=== PATIENT | female | born 1980 | race Caucasian/White ===

== ENCOUNTER 2023-06-14 08:45 | Outpatient (CLI) | payer MEDICARE, OTHER, SELFPAY ==
--- NOTE | 2023-06-14 09:15 | FL_ITS ---
Patient: DANUTA FRAGA Facility:?[facility] Patient ID:?[id number] Site Patient ID:?[id number]. Site :?1980 Study:?XRay-Abdomen upper GI/AIR to Read-06/14/2023 10:24:31 AM Ordering Physician:ISMAEL Final Report: Technique: Single contrast upper GI examination performed with thin barium. Fluoroscopy time 1 minute 57 seconds.. Indication: Dysphagia Comparison: 04/12/2012 Findings: Swallowing mechanism: Coughing occurred during swallowing. No discrete aspiration on the current study. Pill was tolerated normally. Esophageal motility: Decreased esophageal motility with delayed clearance. Gastroesophageal reflux: Present. Hernia: None. Esophagus, stomach and duodenal bulb mucosa: Normal mucosa. No stricture or mass. Impression: Delayed esophageal motility. Normal passage of barium tablet into the stomach. GERD present. Possible aspiration. Consider speech therapy evaluation. Dictated by Sam Villalobos MD @ 06/14/2023 12:52:53 PM Signed by:?Sam Villalobos MD @06/14/2023 12:52:53 PM (Electronic Signature)
== END 2023-06-14 08:46 | disposition home or self-care (01) ==
LOC: RAD 08:52
PROVIDERS: PCP Family Medicine; Visit Provider Internal Medicine Gastroenterology
DX: R13.10 Dysphagia, unspecified (principal); K21.9 Gastro-esophageal reflux disease without esophagitis
CPT/HCPCS: 74246

== ENCOUNTER 2024-08-09 14:23 | Inpatient (IN) | payer MEDICARE, OTHER, SELFPAY ==
[2024-08-09] VITALS (29 sets, daily range): BP systolic 97–119; BP diastolic 61–73; PULSE 83–96; RESP 18–30; TEMP 36.8–37.1; O2SAT 80–98
--- NOTE | 2024-08-09 14:54 | CRLHL7_ITS ---
For Patients: As a result of the Cures Act, medical imaging exams and procedure reports are released immediately into your electronic medical record. You may view this report before your referring provider. If you have questions, please contact your health care provider. INDICATION: Shortness of breath TECHNIQUE: Chest radiograph 1 view COMPARISON: None FINDINGS: The sensitivity and specificity of the exam are moderately limited by the patient`s body habitus. Mediastinum: Patient is status post median sternotomy with a clip over the AP window which may be due to prior patent ductus arteriosus ligation. The heart silhouette is normal in size and morphology. Lung: Small lung volumes are present with diffuse ground-glass opacities and indistinctness of the pulmonary vessels which may be due to pulmonary edema. No sign of pleural effusion seen. No pneumothorax is identified. Bone and Soft tissue: Unremarkable for age. IMPRESSION: 1. Small lung volumes are present with diffuse ground-glass opacities and indistinctness of the pulmonary vessels which may be due to pulmonary edema. Dictated by Kevan Lay MD @ 08/09/2024 3:21:19 PM Dictated by: Kevan Lay MD @ 08/09/2024 15:21:27 (Electronically Signed)
--- OUTSIDE RECORDS SUMMARY | 2024-08-09 15:26 | XMS_ITS | CCD ---
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
[2024-08-09 15:44] LABS: HCO3 VBG 24 mmol/L (21-28); Lactate Sepsis w/Reflex* 1.1 mmol/L (0.5-1.9); PCO2 VBG 37 mmHG (40-50); PO2 VBG 71.1 mmHG (25-47); pH VBG 7.414 (7.32-7.43)
[2024-08-09 15:48] LABS: Basophils Absolute Auto 0.04 K/uL (0.00-0.30); Basophils Percent Auto 0.4 % (0.0-3.0); Eosinophils Absolute Auto 0.03 K/uL (0.00-0.50); Eosinophils Percent Auto 0.3 % (0.0-7.0); Hemoglobin* 11.4 gm/dL (12.0-16.0); Immature Granulocytes Abs Auto 0.07 K/uL (0.00-0.30); Immature Granulocytes Pct Auto 0.7 %; Lymphocytes Percent Auto 16.7 % (20-44); Mean Corpuscular HGB Conc 33 gm/dL (32-36); Mean Corpuscular Hemoglobin 31 pg (26-34); Mean Corpuscular Volume 96 fL (80-100); Monocytes Percent Auto 5.8 % (0.0-11.0); Neutrophils Percent Auto 76.1 % (42.0-72.0); Platelet Count* 260 K/uL (140-440); RDW Coefficient of Variation % 15.3 % (11.5-15.5); Red Blood Count 3.65 m/uL (4.00-5.20); White Blood Count* 10.16 K/uL (4.50-11.00)
[2024-08-09 15:52] LABS: Slide Review Reflex No
[2024-08-09 15:58] LABS: Chloride* 106 mmol/L (96-114)
[2024-08-09 15:59] LABS: Potassium* 3.6 mmol/L (3.6-5.1); Sodium* 139 mmol/L (135-149)
[2024-08-09 16:01] LABS: Blood Urea Nitrogen* 22 mg/dL (5-24); Creatinine* 0.8 mg/dL (0.5-1.5); Estimated Glomerular Filt Rate 94 ml/min
[2024-08-09 16:02] LABS: Anion Gap 10 mEq/L (7-15); Calcium* 8.4 mg/dL (8.4-10.6); Carbon Dioxide* 23 mmol/L (20-32); Glucose* 130 mg/dL (60-115)
[2024-08-09 16:10] LABS: Troponin, Point-of-Care* 0.04 ng/ml (0.01-0.04)
[2024-08-09 16:12] LABS: NT Pro B Type NatriureticPept* 5990 pg/mL (See Note)
[2024-08-09 16:19] LABS: Procalcitonin* 0.33 ng/mL (<0.50)
[2024-08-09 16:22] LABS: C Reactive Protein* 21.5 mg/dL (0.5-1.0)
[2024-08-09] MEDS: FUROSEMIDE 10 MG/ML inj 40 MG IVP (16:42)
--- NOTE | 2024-08-09 16:58 | ED.GENADULT ---
HPI - General Adult General Date Seen: 08/09/24 Chief complaint: Shortness of Breath/Dyspnea Stated complaint: Oxygen levels are down Time Seen by Provider: 08/09/24 14:36 History of Present Illness HPI narrative: Patient is a 43-year-old here with mom for evaluation of cough, shortness of breath, hypoxia. She has a history of Down syndrome, mom provides the history. She was born with congenital heart disease, complete AV canal, and this was repaired as an . Mom reports that she has been followed by Cardiology since then, has had regular echocardiograms, has had 2 in the past month, most recently a few days ago. Apparently mom was told there were some problems with the valves and she has some additional follow-up scheduled coming up soon. She has not historically had problems with heart failure. Over the past week she has had what they felt was probably asthma with cough, wheezing and some shortness of breath. She had a temp of a 100.2? yesterday. She has been coughing up a little bit of sputum. She has complained of some abdominal bloating and ?fullness, and actually mom had brought her to her regular doctor today for those symptoms, she was noted to be hypoxic with O2 sats of 80 and so she was sent here right away without any evaluation there. She is not normally on oxygen. O2 sats here on oxygen are 93%. She has not had swelling in her legs, has not had vomiting, diarrhea, rashes, and has not complained about other pain. She is conversant, though limited in her ability to provide information. She lives in a fpc during the week, mom says sometimes she stays in a fpc on the weekends and sometime she comes home and stays with mom. Related Data Home Medications ?Medication ?Instructions ?Recorded ?Confirmed ascorbic acid (vitamin C) 250 mg 250 mg PO DAILY 12/15/21 08/09/24 tablet cholecalciferol (vitamin D3) 25 1,000 unit PO DAILY 12/15/21 08/09/24 mcg (1,000 unit) tablet melatonin 5 mg capsule 1 mg PO .Bedtime as needed PRN 12/15/21 08/09/24 multivitamin with iron 1 tab PO QDAY 12/15/21 08/09/24 albuterol sulfate 2.5 mg/3 mL 1 continuous nebulization TID PRN 08/09/24 (0.083 %) solution for nebulization amoxicillin 500 mg capsule 2,000 mg PO ONCE 08/09/24 08/09/24 budesonide 0.5 mg/2 mL suspension 0.25 mg inhalation BID PRN 08/09/24 08/09/24 for nebulization (Pulmicort) buspirone 15 mg tablet 15 mg PO BID 08/09/24 08/09/24 cetirizine 10 mg tablet (Allergy 10 mg PO DAILY 08/09/24 08/09/24 Relief (cetirizine)) diphenhydramine HCl 25 mg capsule 25 - 50 mg PO QHS PRN 08/09/24 08/09/24 (Benadryl) duloxetine 30 mg capsule,delayed 30 mg PO DAILY 08/09/24 08/09/24 release duloxetine 60 mg capsule,delayed 60 mg PO DAILY 08/09/24 08/09/24 release famotidine 20 mg tablet 20 mg PO BID 08/09/24 08/09/24 fluticasone propionate 50 2 spray intranasal DAILY 08/09/24 08/09/24 mcg/actuation nasal spray,suspension (24 Hour Allergy Relief) lorazepam 0.5 mg tablet 0.5 mg PO PRN 08/09/24 mirtazapine 7.5 mg tablet 7.5 mg PO QPM 08/09/24 08/09/24 pseudoephedrine HCl 30 mg tablet 30 mg PO Q6H PRN 08/09/24 08/09/24 (Sudafed) zinc gluconate 50 mg tablet 50 mg PO DAILY 08/09/24 08/09/24 Allergies Allergy/AdvReac Type Severity Reaction Status Date / Time metoclopramide (From Reglan) Allergy Unknown Verified 08/09/24 14:39 seasonal Allergy Mild Uncoded 12/15/21 10:25 Dust Allergy Unknown Uncoded 12/15/21 10:25 Review of Systems Status of ROS: Reports: unobtainable due to medical condition [facility] Social History Smoking Status: Never smoker Exam Narrative: Exam Narrative: Vital signs reviewed In general, alert, nontoxic mid age woman. Head: Face ease consistent with Down syndrome. Atraumatic. Eyes: Sclera clear. Pupils equal and reactive. ENT: Mucous membranes moist. Neck: Supple without adenopathy. Heart: Regular rate and rhythm. Lungs: She sounds clear on the right, on the left she has crackles throughout. No significant increased work of breathing. Abdomen: Soft, nontender to palpation. Nondistended at this time. Extremities: Well perfused, pulses intact. No significant edema. No calf tenderness. Neurologic: She is alert, moves all extremities. Skin: Warm, dry well perfused. Affect: Pleasant, cooperative. Const: Vital Signs, click to edit/add: Vital Signs - 24 hr 08/09/24 14:32 08/09/24 14:33 08/09/24 14:33 Temperature 98.2 F Pulse Rate 94 93 Pulse Rate [Pulse Oximeter] 95 Respiratory Rate 28 H 24 Blood Pressure 116/69 Blood Pressure [Ri ght Upper Arm] 116/69 Pulse Oximetry 91 80 L 92 Oxygen Delivery Me thod Room Air Oxygen Flow Rate 08/09/24 14:45 08/09/24 14:54 08/09/24 15:00 Temperature Pulse Rate 93 90 Pulse Rate [Pulse Oximeter] Respiratory Rate 28 H 22 Blood Pressure Blood Pressure [Ri ght Upper Arm] Pulse Oximetry 96 93 98 Oxygen Delivery Me thod OxyMask Oxygen Flow Rate 8 08/09/24 15:01 08/09/24 15:15 08/09/24 15:31 Temperature Pulse Rate 87 84 Pulse Rate [Pulse Oximeter] Respiratory Rate 24 26 H Blood Pressure 100/61 97/64 Blood Pressure [Ri ght Upper Arm] Pulse Oximetry 97 95 Oxygen Delivery Me thod Oxygen Flow Rate 08/09/24 15:45 08/09/24 16:00 08/09/24 16:01 Temperature Pulse Rate 87 89 85 Pulse Rate [Pulse Oximeter] Respiratory Rate 24 22 Blood Pressure 98/69 Blood Pressure [Ri ght Upper Arm] Pulse Oximetry 93 94 95 Oxygen Delivery Me thod Oxygen Flow Rate 08/09/24 16:02 08/09/24 16:15 08/09/24 16:30 Temperature Pulse Rate 86 83 87 Pulse Rate [Pulse Oximeter] Respiratory Rate 24 28 H Blood Pressure Blood Pressure [Ri ght Upper Arm] Pulse Oximetry 95 95 96 Oxygen Delivery Me thod Oxygen Flow Rate 08/09/24 16:31 08/09/24 16:45 08/09/24 16:52 Temperature Pulse Rate 83 89 Pulse Rate [Pulse Oximeter] Respiratory Rate 23 18 Blood Pressure 110/66 Blood Pressure [Ri ght Upper Arm] Pulse Oximetry 95 95 95 Oxygen Delivery Me thod OxyMask Oxygen Flow Rate 6 Course Course ED Course: Patient was maintained on oxygen here. Based on my initial exam with crackles unilaterally and history of cough over the past week, I did suspect this may be related to pneumonia, other diagnostic considerations would include congestive heart failure, pulmonary edema, effusion, pulmonary embolism, acute coronary syndrome, anemia, among others. A chest x-ray is of somewhat poor quality, but looks more consistent with pulmonary edema to me than focal consolidation. An EKG shows a sinus rhythm, ventricular rate of 84, she has an incomplete right bundle branch block, QT is prolonged at 489 milliseconds, no acute ST segment changes, T-wave inversion in the anterior leads related presumably to the incomplete right bundle branch block. Troponin was 0.04. Labs are overall not entirely supportive of a diagnosis of pneumonia. Her white blood cell count is normal, lactate was 1.1, BNP elevated at nearly 6000, baseline unknown. She does have an elevated CRP at 21.5 of uncertain significance. Procalcitonin was normal at 0.33. I discussed her care with the laborer cook house on-call at [facility] given her history of congenital heart disease. Her echo from 3 days ago reportedly showed mild mitral regurgitation and severe tricuspid regurgitation. Three weeks ago apparently the mitral regurgitation was more severe and the laborer cook house said that this can wax and wane, presumably mitral regurgitation would be giving her her pulmonary edema at this point. She does have follow-up planned for August 19 to get a JIE. The laborer cook house felt that for now a hospitalization here with diuresis and oxygen therapy is really all she needs, he did not feel that there is anything cardiology specific that she would require right now unless she does not respond to diuresis. They are available for any further consultation or transfer if needed. Case discussed with hospitalist here, plan will be admission to our hospital here. I did give her Lasix 40 mg IV. Vital Signs Vital signs: Initial Vital Signs Pulse Rate 94 08/09/24 14:32 Blood Pressure 116/69 08/09/24 14:32 Blood Pressure Mean 84 08/09/24 14:32 Pulse Oximetry 91 08/09/24 14:32 Vital Signs Pulse Rate 94 08/09/24 14:32 Blood Pressure 116/69 08/09/24 14:32 Pulse Oximetry 91 08/09/24 14:32 Temperature 98.2 F 08/09/24 14:33 Pulse Rate 89 08/09/24 16:45 Respiratory Rate 18 08/09/24 16:45 Blood Pressure 110/66 08/09/24 16:31 Pulse Oximetry 95 08/09/24 16:52 Oxygen Delivery Method OxyMask 08/09/24 16:52 Oxygen Flow Rate 6 08/09/24 16:52 Medications Administered Medications: Discontinued Medications Generic Name Dose Route Start Last Admin Trade Name Sandipq PRN Reason Stop Dose Admin Furosemide 40 mg 08/09/24 16:22 08/09/24 16:42 Furosemide 10 Mg/Ml Inj IVP 08/09/24 16:23 40 mg ONCE ONE Administration Medical Decision Making Lab Data Lab results reviewed: Yes I reviewed the patient's lab results Labs: Lab Results 08/09/24 08/09/24 Range/Units 14:54 15:30 WBC 10.16 (4.50-11.00) K/uL RBC 3.65 L (4.00-5.20) m/uL Hgb 11.4 L (12.0-16.0) gm/dL Hct 35.0 (33.0-51.0) % MCV 96 (80-100) fL MCH 31 (26-34) pg MCHC 33 (32-36) gm/dL RDW Coeff of Elsy 15.3 (11.5-15.5) % Plt Count 260 (140-440) K/uL Neut % (Auto) 76.1 H (42.0-72.0) % Lymph % (Auto) 16.7 L (20-44) % Barnes % (Auto) 5.8 (0.0-11.0) % Eos % (Auto) 0.3 (0.0-7.0) % Baso % (Auto) 0.4 (0.0-3.0) % Neut # (Auto) 7.70 H (1.7-7.0) K/uL Lymph # (Auto) 1.70 (0.90-2.90) K/uL Barnes # (Auto) 0.60 (0.00-0.90) K/UL Eos # (Auto) 0.03 (0.00-0.50) K/uL Baso # (Auto) 0.04 (0.00-0.30) K/uL Abs Immat Gran (auto) 0.07 (0.00-0.30) K/uL Imm/Tot Granulo (auto) 0.7 % VBG pH 7.414 (7.32-7.43) VBG pCO2 37 L (40-50) mmHG VBG pO2 71.1 H (25-47) mmHG VBG HCO3 24 (21-28) mmol/L Sodium 139 (135-149) mmol/L Potassium 3.6 (3.6-5.1) mmol/L Chloride 106 (96-114) mmol/L Carbon Dioxide 23 (20-32) mmol/L Anion Gap 10 (7-15) mEq/L BUN 22 (5-24) mg/dL Creatinine 0.8 (0.5-1.5) mg/dL Estimated GFR 94 ml/min Glucose 130 H (60-115) mg/dL Lactate 1.1 (0.5-1.9) mmol/L Calcium 8.4 (8.4-10.6) mg/dL C-Reactive Protein 21.5 H (0.5-1.0) mg/dL NT-Pro-B Natriuret Pep 5990 H (See Note) pg/mL Procalcitonin 0.33 (<0.50) ng/mL POC Troponin I 0.04 (0.01-0.04) ng/ml Imaging Data Chest x-ray: Attestation: I have reviewed the pertinent imaging results. Radiologist's impression: Patient: Dominique Pratt MR#: [id number] : 1980 Acct:[id number] Loc: ED Service Date: 08/09/[address]: Ordering Physician: Flori Camp M.D. Date of Service: 08/09/24 Procedure(s): XR chest 1V portable Accession Number(s): [id number] cc: Flori Camp M.D.; Joe Dailey M.D.~ For Patients: As a result of the Cures Act, medical imaging exams and procedure reports are released immediately into your electronic medical record. You may view this report before your referring provider. If you have questions, please contact your health care provider. INDICATION: Shortness of breath TECHNIQUE: Chest radiograph 1 view COMPARISON: None FINDINGS: The sensitivity and specificity of the exam are moderately limited by the patient`s body habitus. Mediastinum: Patient is status post median sternotomy with a clip over the AP window which may be due to prior patent ductus arteriosus ligation. The heart silhouette is normal in size and morphology. Lung: Small lung volumes are present with diffuse ground-glass opacities and indistinctness of the pulmonary vessels which may be due to pulmonary edema. No sign of pleural effusion seen. No pneumothorax is identified. Bone and Soft tissue: Unremarkable for age. IMPRESSION: 1. Small lung volumes are present with diffuse ground-glass opacities and indistinctness of the pulmonary vessels which may be due to pulmonary edema. Discharge Plan Discharge Clinical Impression: Heart failure, History of congenital heart disease, Hypoxia Patient Disposition: Admitted As Observation Condition: Stable
[2024-08-09 18:12] LABS: Magnesium* 2.5 mg/dL (1.5-2.6)
--- NOTE | 2024-08-09 18:22 | PM.IMHP1 ---
Assessment and Plan Assessment and plan (1) Acute right-sided heart failure: Problem comment: - reviewed with extension service specialist at [facility] who recommends inpatient treatment with IV loop diuretic plus other supportive efforts, and consider transfer if not responding sufficiently Status: Acute (2) Severe tricuspid regurgitation by prior echocardiography: Problem comment: - Long standing TR monitored with cardiology and TTE annually - previously mild to moderate severity - TTE 08/06/2024: mild to moderately enlarged RV with torrential tricuspid valve regurgitation - scheduled to for a JIE and cardiology valvular heart disease specialist, at [facility] @ 1045 AM 08/19/2024 Status: Acute (3) Moderate mitral valve regurgitation: Problem comment: - Long standing MR monitored by cardiology and TTE annually - regurgitation severity variable between mild and moderate - scheduled to for a JIE and cardiology valvular heart disease specialist, at [facility] @ 1045 AM 08/19/2024 Status: Acute (4) Acute respiratory failure with hypoxia: Problem comment: - appears to be due to underlying valvular heart disease - treat underlying right heart failure likely due to torrential tricuspid regurgitation with furosemide, 40 mg IV and monitor - oxygen supplementation - if condition worsens or does not improve, will need to re-consult Cardiology Service at [facility] Status: Acute Plan 1. Reviewed impression, plans, recommendations with patient's mother, father, and our emergency department physician 2. Answered patient's parents questions to their satisfaction 3. Patient's parents agree with above stated plans and recommendations Total Time Spent Total Time Spent: 75 minutes Hospitalist- H&P: HPI History of Present Illness Date Seen: 08/09/24 Chief complaint: Oxygen levels are down Narrative: Dominique Pratt is a 43 year old woman with Down syndrome and longstanding congenital heart disease presents with her mother and father for assessment of new hypoxia. Her mother and father are her legal guardians. Patient has had evolving memory disturbance and mother and father continue to be her guardians and spokes people. Up until 1 week ago she had been in her usual state of health. Starting a week ago she started having increased coughing. Mother, father, and staff at the [facility] where [facility] resides thought perhaps the patient might be having an asthma exacerbation. Patient has had history of reactive airways disease in association with upper respiratory tract infections. Presently they have not been aware of stridor or wheezing. Nevertheless they have been treating her with albuterol nebulization but have not noticed much of an improvement and thus they made an appointment to be seen in the clinic today. At the clinic her room air oxygen saturations at rest were in the low to mid 80s. At this juncture she was referred to the emergency department for further assessment and treatment. To the best of patient's family knowledge the patient has not had fevers, rigors, diaphoresis. When being assessed at the clinic today, before she was brought to the emergency department, they did measure a temperature of 100.2? F at the clinic. She had not had any fevers prior to that. Since she has been in our hospital she has not had any fevers. With the family did notice is ever the last several days patient has had increasing dyspnea with exertion, walking more slowly, breathing more heavily with exertion. Patient has been eating and drinking per usual, aside from continued coughing whether eating or drinking or not eating or drinking. Has not had gastrointestinal or genitourinary concerns or complaints. No apparent syncope or near-syncope. In trying to extract additional symptoms from the patient she denies chest heaviness, pressure, tightness, pain. Denies nausea or vomiting. Patient and family unaware of patient has had more or less lower extremity edema. They claim she historically has not had lower extremity edema. For years patient has had monitoring of her underlying congenital heart disease with Cardiology including annual transthoracic echocardiograms. Patient mitral regurgitation continues to vary between mild and moderate severity. Her tricuspid regurgitation has markedly worsened this year such that she has had 2 transthoracic echocardiograms over the last month demonstrating torrential tricuspid regurgitation with increased size of the right ventricle. Her extension service specialist, Dr. Pemberton, attempted a 1 week course of furosemide 20 mg orally once daily and the patient and family did not notice any difference before, during, or after. With the findings of the most recent transthoracic echocardiograms, referral has been made for the patient to be seen in the cardiology valvular Clinic on 08/19/2024 at [facility] along with a transesophageal echocardiogram. Review of Systems Status of ROS: Reports: 10 or more systems reviewed and unremarkable except as noted in History and below Medical Decision Making Medical Decision Making Code Status: Full resuscitation Has patient completed a Health Care Directive: No During This Stay, Who Would You Like To Make Decisions For You In The Event You Are Unable To Make Them For Yourself?: Mother and father are her primary guardians [facility] Medical History Acute myelogenous leukemia in remission ?C92.01 - Acute myeloblastic leukemia, in remission (ICD-10) Reflux esophagitis ?K21.00 - Gastro-esophageal reflux disease with esophagitis, without bleeding (ICD-10) Incomplete right bundle branch block ?I45.10 - Unspecified right bundle-branch block (ICD-10) Mixed conductive and sensorineural hearing loss of right ear ?H90.71 - Mixed conductive and sensorineural hearing loss, unilateral, right ear, with unrestricted hearing on the contralateral side (ICD-10) Poor dentition ?K08.9 - Disorder of teeth and supporting structures, unspecified (ICD-10) Lactose intolerance ?E73.9 - Lactose intolerance, unspecified (ICD-10) Impulse control disorder ?F63.9 - Impulse disorder, unspecified (ICD-10) Vitamin D deficiency ?E55.9 - Vitamin D deficiency, unspecified (ICD-10) Mild memory disturbances not amounting to dementia ?R41.3 - Other amnesia (ICD-10) Anxiety disorder ?F41.9 - Anxiety disorder, unspecified (ICD-10) Mixed hyperlipidemia ?E78.2 - Mixed hyperlipidemia (ICD-10) Major depression ?F32.9 - Major depressive disorder, single episode, unspecified (ICD-10) Asthma ?J45.909 - Unspecified asthma, uncomplicated (ICD-10) Moderate mitral valve regurgitation ?I34.0 - Nonrheumatic mitral (valve) insufficiency (ICD-10) Severe tricuspid regurgitation by prior echocardiography ?I07.1 - Rheumatic tricuspid insufficiency (ICD-10) Congenital heart disease in adult ?Q24.9 - Congenital malformation of heart, unspecified (ICD-10) Down syndrome ?Q90.9 - Down syndrome, unspecified (ICD-10) Surgical History Status post total abdominal hysterectomy ?Z90.710 - Acquired absence of both cervix and uterus (ICD-10) S/P repair of PDA (patent ductus arteriosus) ?Z87.74 - Personal history of (corrected) congenital malformations of heart and circulatory system (ICD-10) S/P atrioventricular septal defect repair ?Z87.74 - Personal history of (corrected) congenital malformations of heart and circulatory system (ICD-10) Family History Maternal Grandfather Diabetes Maternal Grandmother Colon cancer Other Alzheimers disease Social History Narrative: Mother and father are her guardians. Lives at the [place], [place]. Full resuscitation status. Smoking Status: Never smoker Meds Home Medications and Allergies Home Medications ?Medication ?Instructions ?Recorded ?Confirmed ?Type ascorbic acid (vitamin C) 250 mg 250 mg PO DAILY 12/15/21 08/09/24 History tablet cholecalciferol (vitamin D3) 25 1,000 unit PO DAILY 12/15/21 08/09/24 History mcg (1,000 unit) tablet melatonin 5 mg capsule 1 mg PO .Bedtime as needed PRN 12/15/21 08/09/24 History multivitamin with iron 1 tab PO QDAY 12/15/21 08/09/24 History albuterol sulfate 2.5 mg/3 mL 1 continuous nebulization TID PRN 08/09/24 History (0.083 %) solution for nebulization amoxicillin 500 mg capsule 2,000 mg PO ONCE 08/09/24 08/09/24 History budesonide 0.5 mg/2 mL suspension 0.25 mg inhalation BID PRN 08/09/24 08/09/24 History for nebulization (Pulmicort) buspirone 15 mg tablet 15 mg PO BID 08/09/24 08/09/24 History cetirizine 10 mg tablet (Allergy 10 mg PO DAILY 08/09/24 08/09/24 History Relief (cetirizine)) diphenhydramine HCl 25 mg capsule 25 - 50 mg PO QHS PRN 08/09/24 08/09/24 History (Benadryl) duloxetine 30 mg capsule,delayed 30 mg PO DAILY 08/09/24 08/09/24 History release duloxetine 60 mg capsule,delayed 60 mg PO DAILY 08/09/24 08/09/24 History release famotidine 20 mg tablet 20 mg PO BID 08/09/24 08/09/24 History fluticasone propionate 50 2 spray intranasal DAILY 08/09/24 08/09/24 History mcg/actuation nasal spray,suspension (24 Hour Allergy Relief) lorazepam 0.5 mg tablet 0.5 mg PO PRN 08/09/24 History mirtazapine 7.5 mg tablet 7.5 mg PO QPM 08/09/24 08/09/24 History pseudoephedrine HCl 30 mg tablet 30 mg PO Q6H PRN 08/09/24 08/09/24 History (Sudafed) zinc gluconate 50 mg tablet 50 mg PO DAILY 08/09/24 08/09/24 History Allergies Allergy/AdvReac Type Severity Reaction Status Date / Time metoclopramide (From Reglan) Allergy Unknown Verified 08/09/24 14:39 seasonal Allergy Mild Uncoded 12/15/21 10:25 Dust Allergy Unknown Uncoded 12/15/21 10:25 Exam Narrative: Exam Narrative: Examined patient in the emergency department. She is sitting with head of bed elevated at 60?, with resting respiratory rate of 24-28 breaths per minute while on oxygen supplementation at 5 L per minute via OxyMask, with saturations of 92-94%. Efforts to decrease oxygen flow rate to 4 liters/minute resultant saturations dropping down to 86-88%. Nevertheless she appears comfortable. She does appear anxious particularly when she coughs. Cough for the most part nonproductive but at times productive of white sputum. Does answer some of my questions. Defers answering some questions and looks to her mother or father to answer on her behalf. Neck is supple. Midline trachea. No head neck lymphadenopathy. With head of bed elevated at 60?, she has jugular venous distention [facility] up the neck with hepatojugular reflux up to the angle of the jaw. No wheezing or rhonchi on auscultation of her lungs. Does have bibasilar end inspiratory rales, left greater than right when I listen. No CVA tenderness. Heart tones with regular rhythm. Tones difficult to auscultate in conjunction with the rales. Abdomen with active bowel sounds, soft, nontender. No rebound or guarding. Bilateral lower extremity edema up to her knees, 3 mm pitting. No focal motor neurologic deficits. Able to follow simple instructions. Eating and drinking between coughing. No cyanosis, jaundice, petechiae, or rashes. Const: Vital Signs, click to edit/add: Vital Signs - 24 hr 08/09/24 14:32 08/09/24 14:33 08/09/24 14:33 Temperature 98.2 F Pulse Rate 94 93 Pulse Rate [Pulse Oximeter] 95 Respiratory Rate 28 H 24 Blood Pressure 116/69 Blood Pressure [Ri ght Upper Arm] 116/69 Pulse Oximetry 91 80 L 92 Oxygen Delivery Me thod Room Air Oxygen Flow Rate 08/09/24 14:45 08/09/24 14:54 08/09/24 15:00 Temperature Pulse Rate 93 90 Pulse Rate [Pulse Oximeter] Respiratory Rate 28 H 22 Blood Pressure Blood Pressure [Ri ght Upper Arm] Pulse Oximetry 96 93 98 Oxygen Delivery Me thod OxyMask Oxygen Flow Rate 8 08/09/24 15:01 08/09/24 15:15 08/09/24 15:31 Temperature Pulse Rate 87 84 Pulse Rate [Pulse Oximeter] Respiratory Rate 24 26 H Blood Pressure 100/61 97/64 Blood Pressure [Ri ght Upper Arm] Pulse Oximetry 97 95 Oxygen Delivery Me thod Oxygen Flow Rate 08/09/24 15:45 08/09/24 16:00 08/09/24 16:01 Temperature Pulse Rate 87 89 85 Pulse Rate [Pulse Oximeter] Respiratory Rate 24 22 Blood Pressure 98/69 Blood Pressure [Ri ght Upper Arm] Pulse Oximetry 93 94 95 Oxygen Delivery Me thod Oxygen Flow Rate 08/09/24 16:02 08/09/24 16:15 08/09/24 16:30 Temperature Pulse Rate 86 83 87 Pulse Rate [Pulse Oximeter] Respiratory Rate 24 28 H Blood Pressure Blood Pressure [Ri ght Upper Arm] Pulse Oximetry 95 95 96 Oxygen Delivery Me thod Oxygen Flow Rate 08/09/24 16:31 08/09/24 16:45 08/09/24 16:52 Temperature Pulse Rate 83 89 Pulse Rate [Pulse Oximeter] Respiratory Rate 23 18 Blood Pressure 110/66 Blood Pressure [Ri ght Upper Arm] Pulse Oximetry 95 95 95 Oxygen Delivery Me thod OxyMask Oxygen Flow Rate 6 08/09/24 17:00 08/09/24 17:01 08/09/24 17:02 Temperature Pulse Rate 91 87 88 Pulse Rate [Pulse Oximeter] Respiratory Rate 22 Blood Pressure 117/68 Blood Pressure [Ri ght Upper Arm] Pulse Oximetry 87 L 86 L 96 Oxygen Delivery Me thod Oxygen Flow Rate 08/09/24 17:08 08/09/24 17:15 Temperature Pulse Rate 92 Pulse Rate [Pulse Oximeter] Respiratory Rate 24 Blood Pressure Blood Pressure [Ri ght Upper Arm] Pulse Oximetry 89 95 Oxygen Delivery Me thod OxyMask Oxygen Flow Rate 4 Hospitalist - H&P: Result Labs Labs: Short CBC 08/09/24 Range/Units 15:30 WBC 10.16 (4.50-11.00) K/uL Hgb 11.4 L (12.0-16.0) gm/dL Hct 35.0 (33.0-51.0) % Plt Count 260 (140-440) K/uL BMP 08/09/24 15:30 Sodium 139 Potassium 3.6 Chloride 106 Carbon Dioxide 23 BUN 22 Creatinine 0.8 Glucose 130 H Calcium 8.4 Imaging Chest x-ray: Attestation: I have reviewed the pertinent imaging results. Radiologist's impression: IMPRESSION: 1. Small lung volumes are present with diffuse ground-glass opacities and indistinctness of the pulmonary vessels which may be due to pulmonary edema. In my own review of the x-rays, it appears to have encephalization and Bethany B lines consistent with heart failure.
[2024-08-09 18:25] LABS: Troponin I* 0.04 ng/mL (0.01-0.04)
[2024-08-09] MEDS: ALBUTEROL SULFATE 2.5 MG/3 ML VIAL.NEB NEB (18:27)
[2024-08-09] MEDS: MIRTAZAPINE 15 MG TABLET 7.5 MG PO (18:28)
[2024-08-09 18:30] LABS: Lab Add On Test TEST ADD ON
--- NOTE | 2024-08-09 19:00 | RESP.RT ---
Patient is currently SATing 94% on 8L Oxymask. Patient lung sounds are wet and diminished. Patient is coughing up yellow mucus, but is not coughing up yellow mucus from lungs, but more snorting and then clearing yellow mucus from her sinuses. Chest x-ray shows worsening cardiac issues. Plan is to keep HOB elevated and remain on Oxymask to give time for fluid to come off. If O2 requirements increase, then we can switch to HFNC to help clear sinus congestion and assist in mucus clearance.
[2024-08-09] MEDS: BUSPIRONE 10 MG TABLET 15 MG PO (20:38)
[2024-08-09] MEDS: BUDESONIDE 0.5 MG/2ML NEB 0.25 MG NEB (20:38)
[2024-08-09] MEDS: FAMOTIDINE 20 MG TABLET PO (20:38)
[2024-08-09] MEDS: SODIUM CHLORIDE 0.9 % (FLUSH) 10 ML SYRINGE 5 ML IVF (20:39)
[2024-08-09] MEDS: MELATONIN 3 MG TABLET PO (20:56)
[2024-08-09] MEDS: ENOXAPARIN 40 MG/0.4 ML INJ SUBCUT (21:27)
[2024-08-10] VITALS (11 sets, daily range): BP systolic 102–121; BP diastolic 66–69; PULSE 86–95; RESP 25–40; TEMP 36.9–38; O2SAT 90–95
[2024-08-10] MEDS: LORazepam 0.5 MG TABLET PO (00:08)
[2024-08-10 00:11] LABS: PCR FLU A Negative PCR FLU A (Negative); PCR FLU B Negative PCR FLU B (Negative); PCR RSV Negative PCR RSV (Negative); SARS PCR* Negative SARS-CoV-2 (Negative)
[2024-08-10] MEDS: ACETAMINOPHEN 325 MG TABLET 650 MG PO ×2 (00:16→11:34)
--- NOTE | 2024-08-10 01:27 | W.PM.TELEPRO ---
Exam Narrative Exam Narrative: Physical Exam GENERAL: ?vital signs reviewed, well developed and nourished, in no distress HEENT: pupils are equal round and reactive to light, extraocular movements are grossly within normal limits and oral mucosa is moist. NECK: Supple without lymphadenopathy or thyromegaly according to nursing staff examination observation HEART: Regular rate and rhythm without any rubs, murmurs, or gallops. LUNGS: Clear to auscultation bilaterally with good air movement throughout ABDOMEN: Observation from nurse assisted exam, abdomen appears soft, nontender, and nondistended with Positive bowel sounds noted. EXTREMITIES: Strength and sensation is observed to be grossly within normal limits in the upper and lower extremities.? No focal strength deficit is observed. SKIN:? Observed warm and dry with color normal Const Vital Signs, click to edit/add: Vital Signs - 24 hr 08/09/24 14:32 08/09/24 14:33 08/09/24 14:33 Temperature 98.2 F Pulse Rate 94 93 Pulse Rate [Pulse Oximeter] 95 Respiratory Rate 28 H 24 Blood Pressure 116/69 Blood Pressure [Left Arm] Blood Pressure [Right Upper Arm] 116/69 Pulse Oximetry 91 80 L 92 Oxygen Delivery Method Room Air Oxygen Flow Rate 08/09/24 14:45 08/09/24 14:54 08/09/24 15:00 Temperature Pulse Rate 93 90 Pulse Rate [Pulse Oximeter] Respiratory Rate 28 H 22 Blood Pressure Blood Pressure [Left Arm] Blood Pressure [Right Upper Arm] Pulse Oximetry 96 93 98 Oxygen Delivery Method OxyMask Oxygen Flow Rate 8 08/09/24 15:01 08/09/24 15:15 08/09/24 15:31 Temperature Pulse Rate 87 84 Pulse Rate [Pulse Oximeter] Respiratory Rate 24 26 H Blood Pressure 100/61 97/64 Blood Pressure [Left Arm] Blood Pressure [Right Upper Arm] Pulse Oximetry 97 95 Oxygen Delivery Method Oxygen Flow Rate 08/09/24 15:45 08/09/24 16:00 08/09/24 16:01 Temperature Pulse Rate 87 89 85 Pulse Rate [Pulse Oximeter] Respiratory Rate 24 22 Blood Pressure 98/69 Blood Pressure [Left Arm] Blood Pressure [Right Upper Arm] Pulse Oximetry 93 94 95 Oxygen Delivery Method Oxygen Flow Rate 08/09/24 16:02 08/09/24 16:15 08/09/24 16:30 Temperature Pulse Rate 86 83 87 Pulse Rate [Pulse Oximeter] Respiratory Rate 24 28 H Blood Pressure Blood Pressure [Left Arm] Blood Pressure [Right Upper Arm] Pulse Oximetry 95 95 96 Oxygen Delivery Method Oxygen Flow Rate 08/09/24 16:31 08/09/24 16:45 08/09/24 16:52 Temperature Pulse Rate 83 89 Pulse Rate [Pulse Oximeter] Respiratory Rate 23 18 Blood Pressure 110/66 Blood Pressure [Left Arm] Blood Pressure [Right Upper Arm] Pulse Oximetry 95 95 95 Oxygen Delivery Method OxyMask Oxygen Flow Rate 6 08/09/24 17:00 08/09/24 17:01 08/09/24 17:02 Temperature Pulse Rate 91 87 88 Pulse Rate [Pulse Oximeter] Respiratory Rate 22 Blood Pressure 117/68 Blood Pressure [Left Arm] Blood Pressure [Right Upper Arm] Pulse Oximetry 87 L 86 L 96 Oxygen Delivery Method Oxygen Flow Rate 08/09/24 17:08 08/09/24 17:15 08/09/24 18:33 Temperature Pulse Rate 92 Pulse Rate [Pulse Oximeter] 84 Respiratory Rate 24 22 Blood Pressure Blood Pressure [Left Arm] 115/73 Blood Pressure [Right Upper Arm] Pulse Oximetry 89 95 91 Oxygen Delivery Method OxyMask OxyMask Oxygen Flow Rate 4 8 08/09/24 19:00 08/09/24 19:30 08/09/24 22:18 Temperature 98.3 F 98.7 F Pulse Rate Pulse Rate [Pulse Oximeter] 90 93 Respiratory Rate 20 30 H Blood Pressure Blood Pressure [Left Arm] 111/62 119/63 Blood Pressure [Right Upper Arm] Pulse Oximetry 90 91 91 Oxygen Delivery Method OxyMask OxyMask OxyMask Oxygen Flow Rate 10 11 11 08/09/24 22:22 08/09/24 22:58 Temperature Pulse Rate Pulse Rate [Pulse Oximeter] Respiratory Rate Blood Pressure Blood Pressure [Left Arm] Blood Pressure [Right Upper Arm] Pulse Oximetry 92 91 Oxygen Delivery Method OxyMask OxyMask Oxygen Flow Rate 11 15 Labs Labs: Laboratory Results - last 24 hr 08/09/24 08/09/24 08/09/24 14:54 15:30 17:56 WBC 10.16 RBC 3.65 L Hgb 11.4 L Hct 35.0 MCV 96 MCH 31 MCHC 33 RDW Coeff of Elsy 15.3 Plt Count 260 Neut % (Auto) 76.1 H Lymph % (Auto) 16.7 L [place] % (Auto) 5.8 Eos % (Auto) 0.3 Baso % (Auto) 0.4 Neut # (Auto) 7.70 H Lymph # (Auto) 1.70 [place] # (Auto) 0.60 Eos # (Auto) 0.03 Baso # (Auto) 0.04 Abs Immat Gran (auto) 0.07 Imm/Tot Granulo (auto) 0.7 VBG pH 7.414 VBG pCO2 37 L VBG pO2 71.1 H VBG HCO3 24 Sodium 139 Potassium 3.6 Chloride 106 Carbon Dioxide 23 Anion Gap 10 BUN 22 Creatinine 0.8 Estimated GFR 94 Glucose 130 H Lactate 1.1 Calcium 8.4 Magnesium 2.5 Troponin I 0.04 C-Reactive Protein 21.5 H NT-Pro-B Natriuret Pep 5990 H Procalcitonin 0.33 SARS-CoV-2 (PCR) Influenza Type A (PCR) Influenza Type B (PCR) RSV (PCR) Lab Acknowledgement TEST ADD ON POC Troponin I 0.04 08/09/24 23:17 WBC RBC Hgb Hct MCV MCH MCHC RDW Coeff of Elsy Plt Count Neut % (Auto) Lymph % (Auto) [place] % (Auto) Eos % (Auto) Baso % (Auto) Neut # (Auto) Lymph # (Auto) [place] # (Auto) Eos # (Auto) Baso # (Auto) Abs Immat Gran (auto) Imm/Tot Granulo (auto) VBG pH VBG pCO2 VBG pO2 VBG HCO3 Sodium Potassium Chloride Carbon Dioxide Anion Gap BUN Creatinine Estimated GFR Glucose Lactate Calcium Magnesium Troponin I C-Reactive Protein NT-Pro-B Natriuret Pep Procalcitonin SARS-CoV-2 (PCR) Negative SARS-CoV-2 Influenza Type A (PCR) Negative PCR FLU A Influenza Type B (PCR) Negative PCR FLU B RSV (PCR) Negative PCR RSV Lab Acknowledgement POC Troponin I Telehealth: Statement Statement Telehealth Visit: Today's History and Physical is provided via interactive telehealth by Daryl Price MD.? Patient is located at [facility].? Provider is located at [facility].? Nursing staff assisted with the patient's exam. The visit being done today meets criteria for a telehealth visit and the patient or patient?s parent/guardian is aware the visit is a telehealth visit.
--- NOTE | 2024-08-10 01:28 | PM.CCEN ---
Critical Care Event Note Summary Code activated: No Narrative: Called regarding persistent hypoxia. Patient with heart failure, received 40 mg of IV Lasix with only 500 mL of urine out. Patient was on oxy mask and was switched to heated high flow earlier in the evening. She is on 30 L at 50% FiO2 sats 85%. Discussed with nursing that we need to turn FiO2 the 100 and wean down as needed. Will keep at 30 L for now as she is having some difficulty tolerating heated high flow. If she does not tolerate the high flow order we cannot fix the hypoxia will need BiPAP or intubation. Will give additional 80 mg of IV Lasix This case had a high probability of a clinically significant, sudden, or life threatening deterioration of this patient's condition which required my full and direct attention, intervention and personal management. Critical care time: less than 30 mins
[2024-08-10] MEDS: FUROSEMIDE 10 MG/ML inj 80 MG IVP (02:07)
--- NOTE | 2024-08-10 04:41 | PC.NURSE ---
Jose Luis francisco
--- NOTE | 2024-08-10 04:44 | PC.NURSE ---
Jose Luis called around 0150 as pt was started on HIFLO with settings at 30/50/36 and after 15min was still unable to maintain sats above 86%. Wanted some direction on settings. stated to go to 30/100/36 and see how she did. Pt did take awhile but sats have remained above 90 at those settings. Lasix 80mg IV was also ordered and given. At this time has had 500cc urine out put after receiving the Lasix.
[2024-08-10] MEDS: FUROSEMIDE 10 MG/ML inj 40 MG IVP (06:19)
[2024-08-10 06:28] LABS: Lactate* 2.1 mmol/L (0.5-1.9)
--- NOTE | 2024-08-10 06:30 | PC.NURSE ---
End of shift report [id number]: At the beginning of the shift pt was on 10 L oxymask to maintain oxygen saturations above 88% per order. Pt was noted to be desatting when sleeping on 15L via oxymask. High flow nasal cannula was implemented around 0145, Jose Luis CARLSON was called and recommended the high flow settings of 30 L/min,100% FiO2, 36 degrees that were implemented. IV furosemide was also given per Jose Luis CARLSON orders. Pt had a fever of 100.4, tylenol given prior for pt complaining of stomach pain, upon reassessment temp was 99.3. Pt ambulates SBA with gaitbelt to bedside commode. Pt continues to have a productive cough with cream colored sputum. Pts mom is at bedside, call light within reach.?
[2024-08-10 06:32] LABS: Hematocrit 38.3 % (33.0-51.0); Hemoglobin* 12.4 gm/dL (12.0-16.0); Mean Corpuscular HGB Conc 32 gm/dL (32-36); Mean Corpuscular Hemoglobin 31 pg (26-34); Mean Corpuscular Volume 96 fL (80-100); Platelet Count* 261 K/uL (140-440); White Blood Count* 10.56 K/uL (4.50-11.00)
[2024-08-10 06:37] LABS: Slide Review Reflex No
[2024-08-10 06:50] LABS: D Dimer Quantitative* 1.96 ug/ml (0.00-0.50)
[2024-08-10 06:58] LABS: Albumin* 3.8 g/dL (3.3-5.0); Chloride* 102 mmol/L (96-114); Sodium* 140 mmol/L (135-149)
[2024-08-10 06:59] LABS: Potassium* 3.3 mmol/L (3.6-5.1)
[2024-08-10 07:01] LABS: Blood Urea Nitrogen* 21 mg/dL (5-24); Estimated Glomerular Filt Rate 72 ml/min
[2024-08-10 07:02] LABS: Anion Gap 13 mEq/L (7-15); Calcium* 8.2 mg/dL (8.4-10.6); Carbon Dioxide* 25 mmol/L (20-32); Glucose* 144 mg/dL (60-115); Magnesium* 1.9 mg/dL (1.5-2.6); Phosphorus* 3.4 mg/dL (2.5-4.5)
[2024-08-10 07:18] LABS: Procalcitonin* 0.35 ng/mL (<0.50)
[2024-08-10 07:24] LABS: C Reactive Protein* 23.9 mg/dL (0.5-1.0); NT Pro B Type NatriureticPept* 4880 pg/mL (See Note)
--- NOTE | 2024-08-10 07:49 | CRLHL7_ITS ---
For Patients: As a result of the Century Cures Act, medical imaging exams and procedure reports are released immediately into your electronic medical record. You may view this report before your referring provider. If you have questions, please contact your health care provider. INDICATION: Acute leukemia TECHNIQUE: Axial intravenously infused CT cuts were performed from the thoracic inlet to the upper abdomen during the peak phase of pulmonary arterial contrast opacification. 95 mL of Isovue-370 was injected intravenously. COMPARISON: Chest radiograph 08/09/2024. FINDINGS: There are no pulmonary emboli. There is no aortic aneurysm or dissection. There is very extensive alveolar opacity and ground-glass opacity within both lungs. This is favored to represent a diffuse pulmonary edema although infectious etiologies are also possible. There has been a previous sternotomy. There are no enlarged hilar or mediastinal or axillary lymph nodes. The thoracic inlet appears normal. There is very dense breast tissue bilaterally. The visualized liver, spleen, pancreas, adrenals upper poles of both kidneys appear normal. There are no lytic or sclerotic skeletal lesions. IMPRESSION: 1. Negative for pulmonary emboli. 2. Extensive alveolar and ground-glass infiltrates within both lungs favored to represent a pulmonary edema. Infectious/inflammatory etiologies such as pneumonia are also possible. Please note that all CT scans at this facility use dose modulation, iterative reconstruction, and/or weight-based dosing when appropriate to reduce radiation dose to as low as reasonably achievable. Dictated by Stuart Campbell MD @ 08/10/2024 10:14:01 AM (Electronically Signed)
[2024-08-10 07:54] LABS: Troponin I* 0.03 ng/mL (0.01-0.04)
[2024-08-10] MEDS: CETIRIZINE HCL 10 MG TABLET PO (08:23)
[2024-08-10] MEDS: DULOXETINE 30 MG CAPSULE DR PO (08:23)
[2024-08-10] MEDS: FAMOTIDINE 20 MG TABLET PO (08:24)
[2024-08-10] MEDS: BUDESONIDE 0.5 MG/2ML NEB 0.25 MG NEB (08:24)
[2024-08-10] MEDS: BUSPIRONE 10 MG TABLET 15 MG PO (08:24)
[2024-08-10] MEDS: DULOXETINE 30 MG CAPSULE DR 60 MG PO (08:27)
[2024-08-10] MEDS: POTASSIUM BICARB 25 MEQ EFFERVESCENT TAB 50 MEQ PO (09:58)
--- NOTE | 2024-08-10 10:45 | PM.DST ---
Transfer Discharge Sum: Prov Provider Date Seen: 08/10/24 Date of admission: 08/09/24 17:56 Primary care physician: Joe Dailey MD Admitting clinician: Nikita Sommer Consults: 08/09/24 17:56 Consult to Respiratory Therapy [CONS] Routine Comment: Reason(s) for RT Consult:: Consult Attending physician on discharge: Analilia Alejo Anticipated date of transfer: 08/10/24 Receiving physician/facility: Jorge DS: Diagnosis Discharge Diagnosis (1) Acute right-sided heart failure: Status: Acute Problem details: - on admission noted to be hypoxic and tachypneic with O2 saturation as low as 80% on RA and BNP 5990 - treated with IV Furosemide (40mg TID with an additional 80mg overnight), + diuresed >1L - continued to have hypoxia, tachypnea, increased work of breathing, required high flow O2 08/10/24 in the am (2) Severe tricuspid regurgitation by prior echocardiography: Status: Acute Problem details: - Long standing TR monitored with cardiology and TTE annually - TTE 08/06/2024: mild to moderately enlarged RV with torrential tricuspid valve regurgitation - scheduled to for a JIE and cardiology valvular heart disease specialist, at [facility] @ 1045 AM 08/19/2024 (3) Moderate mitral valve regurgitation: Status: Acute Problem details: - Long standing MR monitored by cardiology and TTE annually - regurgitation severity variable between mild and moderate - scheduled to for a JIE and cardiology valvular heart disease specialist, at [facility] @ 1045 AM 08/19/2024 (4) Acute respiratory failure with hypoxia: Status: Acute Problem details: - per above - treated with IV Furosemide, also given one dose Ceftriaxone and Azithromycin on 08/10/24 to cover possible CAP Transfer Discharge Sum: Med Medications Active and Home Medications: Home Medications ascorbic acid (vitamin C) 250 mg tablet 250 mg PO DAILY 12/15/21 [History Confirmed 08/09/24] cholecalciferol (vitamin D3) 25 mcg (1,000 unit) tablet 1,000 unit PO DAILY 12/15/21 [History Confirmed 08/09/24] melatonin 5 mg capsule 1 mg PO .Bedtime as needed PRN 12/15/21 [History Confirmed 08/09/24] multivitamin with iron 1 tab PO QDAY 12/15/21 [History Confirmed 08/09/24] albuterol sulfate 2.5 mg/3 mL (0.083 %) solution for nebulization 1 continuous nebulization TID PRN 08/09/24 [History] amoxicillin 500 mg capsule 2,000 mg PO ONCE 08/09/24 [History Confirmed 08/09/24] budesonide 0.5 mg/2 mL suspension for nebulization (Pulmicort) 0.25 mg inhalation BID PRN 08/09/24 [History Confirmed 08/09/24] buspirone 15 mg tablet 15 mg PO BID 08/09/24 [History Confirmed 08/09/24] cetirizine 10 mg tablet (Allergy Relief (cetirizine)) 10 mg PO DAILY 08/09/24 [History Confirmed 08/09/24] diphenhydramine HCl 25 mg capsule (Benadryl) 25 - 50 mg PO QHS PRN 08/09/24 [History Confirmed 08/09/24] duloxetine 30 mg capsule,delayed release 30 mg PO DAILY 08/09/24 [History Confirmed 08/09/24] duloxetine 60 mg capsule,delayed release 60 mg PO DAILY 08/09/24 [History Confirmed 08/09/24] famotidine 20 mg tablet 20 mg PO BID 08/09/24 [History Confirmed 08/09/24] fluticasone propionate 50 mcg/actuation nasal spray,suspension (24 Hour Allergy Relief) 2 spray intranasal DAILY 08/09/24 [History Confirmed 08/09/24] lorazepam 0.5 mg tablet 0.5 mg PO PRN 08/09/24 [History] mirtazapine 7.5 mg tablet 7.5 mg PO QPM 08/09/24 [History Confirmed 08/09/24] pseudoephedrine HCl 30 mg tablet (Sudafed) 30 mg PO Q6H PRN 08/09/24 [History Confirmed 08/09/24] zinc gluconate 50 mg tablet 50 mg PO DAILY 08/09/24 [History Confirmed 08/09/24] Active Medications Acetaminophen (Acetaminophen 325 Mg Tablet) 650 mg PO Q6H PRN Last Admin: 08/10/24 00:16 Dose: 650 mg Albuterol (Albuterol Sulfate 2.5 Mg/3 Ml Vial.Neb) 2.5 mg NEB Q4H PRN Last Admin: 08/09/24 18:27 Dose: 2.5 mg Budesonide (Budesonide 0.5 Mg/2ml Neb) 0.25 mg NEB BID [facility] Last Admin: 08/10/24 08:24 Dose: 0.25 mg Buspirone HCl (Buspirone 10 Mg Tablet) 15 mg PO BID [facility] Last Admin: 08/10/24 08:24 Dose: 15 mg Cetirizine HCl (Cetirizine Hcl 10 Mg Tablet) 10 mg PO DAILY [facility] Last Admin: 08/10/24 08:23 Dose: 10 mg Diphenhydramine HCl (Diphenhydramine 25 Mg Capsule) 25 mg PO HS PRN Duloxetine HCl (Duloxetine [address]) 30 mg PO DAILY [facility] Last Admin: 08/10/24 08:23 Dose: 30 mg Duloxetine HCl (Duloxetine [address]) 60 mg PO DAILY [facility] Last Admin: 08/10/24 08:27 Dose: 60 mg Enoxaparin Sodium (Enoxaparin 40 Mg/0.4 Ml Inj) 40 mg SUBCUT HS [facility] Last Admin: 08/09/24 21:27 Dose: 40 mg Famotidine (Famotidine 20 Mg Tablet) 20 mg PO BID [facility] Last Admin: 08/10/24 08:24 Dose: 20 mg Fluticasone Propionate (Fluticasone Propionate Nasal) 2 spray NOSTRIL-B DAILY [facility] Furosemide (Furosemide 10 Mg/Ml Inj) 40 mg IVP BID [facility] Last Admin: 08/10/24 09:54 Dose: Not Given Lorazepam (Lorazepam 0.5 Mg Tablet) 0.5 mg PO DAILY PRN Last Admin: 08/10/24 00:08 Dose: 0.5 mg Melatonin (Melatonin 3 Mg Tablet) 3 mg PO HS PRN PRN Reason: Insomnia Last Admin: 08/09/24 20:56 Dose: 3 mg Mirtazapine (Mirtazapine 15 Mg Tablet) 7.5 mg PO QPM [facility] Last Admin: 08/09/24 18:28 Dose: 7.5 mg Ondansetron HCl (Ondansetron Odt 4 Mg Tab) 4 mg PO Q6H PRN Ondansetron HCl (Ondansetron 2 Mg/Ml Inj) 4 mg IVP Q6H PRN PRN Reason: Nausea Sodium Chloride (Sodium Chloride 0.9 % (Flush) 10 Ml Syringe) 5 ml IVF .FLUSH PRN Sodium Chloride (Sodium Chloride 0.9 % (Flush) 10 Ml Syringe) 5 ml IVF BID [facility] Last Admin: 08/09/24 20:39 Dose: 5 ml Transfer Discharge Sum: Hosp Hospital Course Hospital course: Dominique Pratt is a 43 year old female with a history of congenital heart disease, Down syndrome, known mitral and tricuspid who presented to the ER yesterday for cough, dyspnea, and hypoxia. She has a history of congenital heart disease, known mitral and tricuspid disease. Initial evaluation c/w R sided heart failure as source of symptoms; treated with 40mg IV Furosemide in ER and then scheduled for 40mg IV Furosemide BID upon admission. Overnight, became more hypoxic and required escalation of oxygen supplementation to 30L of FiO2, first at 50%, then increased to 100% given persistent hypoxia. She was given an additional dose of 80mg IV Lasix with + UOP but continued to require significant oxygen supplementation with increased work of breathing and intermittent coughing paroxysms. D-Dimer at that time elevated, CT of chest obtained with results below: FINDINGS: There are no pulmonary emboli. There is no aortic aneurysm or dissection. There is very extensive alveolar opacity and ground-glass opacity within both lungs. This is favored to represent a diffuse pulmonary edema although infectious etiologies are also possible. There has been a previous sternotomy. There are no enlarged hilar or mediastinal or axillary lymph nodes. The thoracic inlet appears normal. There is very dense breast tissue bilaterally. The visualized liver, spleen, pancreas, adrenals upper poles of both kidneys appear normal. There are no lytic or sclerotic skeletal lesions. IMPRESSION: 1. Negative for pulmonary emboli. 2. Extensive alveolar and ground-glass infiltrates within both lungs favored to represent a pulmonary edema. Infectious/inflammatory etiologies such as pneumonia are also possible. Given known cardiac history and high risk comorbidities, consulted with Cardiology again (Dr. Ramirez) to discuss transfer for Cardiology evaluation. Patient did have a fever at home prior to ER presentation; given one dose of Ceftriaxone and Azithromycin on 08/10/24 prior to transfer. Accepted for Transfer to [facility] on 08/10/24. Time Spent with Patient Time attestation: Total time spent providing and/or coordinating transfer services: Total time spent: Greater than 30 minutes Exam Narrative: Exam Narrative: GEN: Alert HEENT: Normal external ears, EOMIs bilaterally, no scleral icterus CV: RRR, + systolic murmur R: No wheezing, bibasilar rales, L>R Ext: wwp, no concerning edema Skin: No concerning skin lesions or rashes on exposed skin Neuro: No focal deficits on limited exam Psych: Mildly anxiout, otherwise appropriate Const: Vital Signs, click to edit/add: Vital Signs - 24 hr 08/09/24 14:32 08/09/24 14:33 08/09/24 14:33 Temperature 98.2 F Pulse Rate 94 93 Pulse Rate [Pulse Oximeter] 95 Respiratory Rate 28 H 24 Blood Pressure 116/69 Blood Pressure [Le ft Arm] Blood Pressure [Ri ght Upper Arm] 116/69 Blood Pressure [le ft FA] Pulse Oximetry 91 80 L 92 Oxygen Delivery Me thod Room Air Oxygen Flow Rate Fraction of Inspir ed Oxygen 08/09/24 14:45 08/09/24 14:54 08/09/24 15:00 Temperature Pulse Rate 93 90 Pulse Rate [Pulse Oximeter] Respiratory Rate 28 H 22 Blood Pressure Blood Pressure [Le ft Arm] Blood Pressure [Ri ght Upper Arm] Blood Pressure [le ft FA] Pulse Oximetry 96 93 98 Oxygen Delivery Me thod OxyMask Oxygen Flow Rate 8 Fraction of Inspir ed Oxygen 08/09/24 15:01 08/09/24 15:15 08/09/24 15:31 Temperature Pulse Rate 87 84 Pulse Rate [Pulse Oximeter] Respiratory Rate 24 26 H Blood Pressure 100/61 97/64 Blood Pressure [Le ft Arm] Blood Pressure [Ri ght Upper Arm] Blood Pressure [le ft FA] Pulse Oximetry 97 95 Oxygen Delivery Me thod Oxygen Flow Rate Fraction of Inspir ed Oxygen 08/09/24 15:45 08/09/24 16:00 08/09/24 16:01 Temperature Pulse Rate 87 89 85 Pulse Rate [Pulse Oximeter] Respiratory Rate 24 22 Blood Pressure 98/69 Blood Pressure [Le ft Arm] Blood Pressure [Ri ght Upper Arm] Blood Pressure [le ft FA] Pulse Oximetry 93 94 95 Oxygen Delivery Me thod Oxygen Flow Rate Fraction of Inspir ed Oxygen 08/09/24 16:02 08/09/24 16:15 08/09/24 16:30 Temperature Pulse Rate 86 83 87 Pulse Rate [Pulse Oximeter] Respiratory Rate 24 28 H Blood Pressure Blood Pressure [Le ft Arm] Blood Pressure [Ri ght Upper Arm] Blood Pressure [le ft FA] Pulse Oximetry 95 95 96 Oxygen Delivery Me thod Oxygen Flow Rate Fraction of Inspir ed Oxygen 08/09/24 16:31 08/09/24 16:45 08/09/24 16:52 Temperature Pulse Rate 83 89 Pulse Rate [Pulse Oximeter] Respiratory Rate 23 18 Blood Pressure 110/66 Blood Pressure [Le ft Arm] Blood Pressure [Ri ght Upper Arm] Blood Pressure [le ft FA] Pulse Oximetry 95 95 95 Oxygen Delivery Me thod OxyMask Oxygen Flow Rate 6 Fraction of Inspir ed Oxygen 08/09/24 17:00 08/09/24 17:01 08/09/24 17:02 Temperature Pulse Rate 91 87 88 Pulse Rate [Pulse Oximeter] Respiratory Rate 22 Blood Pressure 117/68 Blood Pressure [Le ft Arm] Blood Pressure [Ri ght Upper Arm] Blood Pressure [le ft FA] Pulse Oximetry 87 L 86 L 96 Oxygen Delivery Me thod Oxygen Flow Rate Fraction of Inspir ed Oxygen 08/09/24 17:08 08/09/24 17:15 08/09/24 18:33 Temperature Pulse Rate 92 Pulse Rate [Pulse Oximeter] 84 Respiratory Rate 24 22 Blood Pressure Blood Pressure [Le ft Arm] 115/73 Blood Pressure [Ri ght Upper Arm] Blood Pressure [le ft FA] Pulse Oximetry 89 95 91 Oxygen Delivery Me thod OxyMask OxyMask Oxygen Flow Rate 4 8 Fraction of Inspir ed Oxygen 08/09/24 19:00 08/09/24 19:30 08/09/24 22:18 Temperature 98.3 F 98.7 F Pulse Rate Pulse Rate [Pulse Oximeter] 90 93 Respiratory Rate 20 30 H Blood Pressure Blood Pressure [Le ft Arm] 111/62 119/63 Blood Pressure [Ri ght Upper Arm] Blood Pressure [le ft FA] Pulse Oximetry 90 91 91 Oxygen Delivery Me thod OxyMask OxyMask OxyMask Oxygen Flow Rate 10 11 11 Fraction of Inspir ed Oxygen 08/09/24 22:22 08/09/24 22:58 08/09/24 23:00 Temperature Pulse Rate 96 Pulse Rate [Pulse Oximeter] Respiratory Rate Blood Pressure Blood Pressure [Le ft Arm] Blood Pressure [Ri ght Upper Arm] Blood Pressure [le ft FA] Pulse Oximetry 92 91 Oxygen Delivery Me thod OxyMask OxyMask Oxygen Flow Rate 11 15 Fraction of Inspir ed Oxygen 08/10/24 01:43 08/10/24 01:47 08/10/24 02:20 Temperature 100.4 F H 99.3 F Pulse Rate Pulse Rate [Pulse Oximeter] 95 Respiratory Rate 34 H Blood Pressure Blood Pressure [Le ft Arm] 105/66 Blood Pressure [Ri ght Upper Arm] Blood Pressure [le ft FA] Pulse Oximetry 90 93 Oxygen Delivery Me thod High Flow Nasal Ca nnula High Flow Nasal Ca nnula Oxygen Flow Rate 30 30 Fraction of Inspir ed Oxygen 100 100 100 08/10/24 03:10 08/10/24 03:43 08/10/24 05:00 Temperature 98.4 F Pulse Rate Pulse Rate [Pulse Oximeter] Respiratory Rate Blood Pressure Blood Pressure [Le ft Arm] Blood Pressure [Ri ght Upper Arm] Blood Pressure [le ft FA] Pulse Oximetry Oxygen Delivery Me thod Oxygen Flow Rate Fraction of Inspir ed Oxygen 100 100 08/10/24 06:22 08/10/24 07:00 08/10/24 07:00 Temperature 99 F Pulse Rate Pulse Rate [Pulse Oximeter] 90 Respiratory Rate 36 H 25 H Blood Pressure Blood Pressure [Le ft Arm] 121/68 Blood Pressure [Ri ght Upper Arm] Blood Pressure [le ft FA] Pulse Oximetry 90 95 Oxygen Delivery Me thod High Flow Nasal Ca nnula High Flow Nasal Ca nnula Oxygen Flow Rate 30 30 Fraction of Inspir ed Oxygen 100 100 100 08/10/24 07:00 08/10/24 09:00 08/10/24 09:00 Temperature 98.5 F Pulse Rate 87 Pulse Rate [Pulse Oximeter] 86 Respiratory Rate 25 H Blood Pressure Blood Pressure [Le ft Arm] Blood Pressure [Ri ght Upper Arm] Blood Pressure [le ft FA] 102/67 Pulse Oximetry 95 Oxygen Delivery Me thod High Flow Nasal Ca nnula Oxygen Flow Rate 30 Fraction of Inspir ed Oxygen 100 100 Discharge Plan Discharge Disposition: [facility] Date of Admission: 08/09/24 17:56 Attending Provider on Discharge: Analilia Alejo Primary Care Provider: Joe Dailey Discharge Orders: Transfer of Care to Other Hospital (ORDER); Ordered 08/10/24 Ordered By: Analilia Alejo Oxygen: Yes Oxygen Flow Rate: high flow 30L/min, 100% FiO2 Urinary Catheter: No Services not available here: Cardiology
[2024-08-10] MEDS: cefTRIAXone 1 GM in 0.9 % SODIUM CHLORIDE Mini-bag 100 ML IVPB (11:30)
[2024-08-10] MEDS: AZITHROMYCIN 250 MG TABLET 500 MG PO (11:34)
[2024-08-10] MEDS: SODIUM CHLORIDE 0.9 % (FLUSH) 10 ML SYRINGE 5 ML IVF (11:44)
--- NOTE | 2024-08-10 14:47 | PC.NURSE ---
Addendum entered by Latricia Dimas RN 08/10/24 14:56: started PO and IV ABX this shift. Original Note: Nursing Care Hours: [id number] Pt this shift cooperative with cares. Repeatedly pulled high flow NC off in morning stating i don't like it. Spo2 quickly decreased to low 80's on room air. Switched to non-rebreather short term while attempting to place new IV in AC. Pt c/o being hungry and wanting to eat and agreed to keep high flow on. Billet Heater Operator observed pt eat with high flow on and tolerated well, no signs of aspiration. Saturations maintained above 90%. C/o upper abdomen hurting but denied nausea. Acetaminophen given. Pt reports BM yesterday but pt mom can not confirm. Pt napped in bed after breakfast. BP and pulse stable most of shift and afebrile. Pt accepted to [facility]. VS when EMS arrived showed bradycardia and oral temp of 99.7. Pt also diaphoretic at that time. SBA pivot transfer onto EMS stretcher tolerated well. Parents with pt at discharge. Nurse to nurse provided over the phone.
== END 2024-08-10 13:22 | disposition short-term general hospital (02) | DRG 291 ==
LOC: ED 17:08 → MEDSURG 17:28
PROVIDERS: Admitting Provider Internal Medicine; Emergency Provider Emergency Medicine; PCP Family Medicine; Visit Provider Internal Medicine
DX: I50.811 Acute right heart failure (principal); J96.01 Acute respiratory failure with hypoxia; Q90.9 Down syndrome, unspecified; I45.19 Other right bundle-branch block; I08.1 Rheumatic disorders of both mitral and tricuspid valves; Q24.9 Congenital malformation of heart, unspecified; J45.909 Unspecified asthma, uncomplicated; F41.9 Anxiety disorder, unspecified; F32.9 Major depressive disorder, single episode, unspecified; E78.2 Mixed hyperlipidemia
CPT/HCPCS: 36415; 71045; 71275; 80048; 80069; 82803; 83605; 83735; 83880; 84145; 84443; 84484; 85025; 85027; 85379; 86140; 87040; 87631; 93005; 94640; 94761; 99284; 99285; A9270; J0696; J1650; J1938; J7626; Q9967

== ENCOUNTER 2024-08-10 12:54 | Outpatient (CLI) | payer MEDICARE, OTHER, SELFPAY ==
--- OUTSIDE RECORDS SUMMARY | 2024-08-12 16:55 | XMS_ITS | Clinical Summary ---
Author Organization [facility] Address [address] [place] [id number] Care Team Providers Care Bank Messenger Name Role Phone Javy Dao MD Unavailable Joe Dailey MD Primary Care Provider [facility] LIA[facility] Unavailable [phone] Allergies Active Allergy Reactions Criticality Noted Date Comments Dust Mites *Unknown 07/24/2012 Metoclopramide *Unknown 08/31/2006 Intol to reglan Secobarbital 08/31/2006 intol Medications Fiber cap .Pt takes 2 fiber gummies daily for constipation Fill at patient request. 60 capsule 11 012 Suspended photo therapy As directed. Length of need: 20-30 minutes daily in the morning 1 Units 0 012 Suspended miscellaneous medical supply misc As directed. Orthrotic for both shoes. 1 Units 2 014 Suspended medication order composerIndicat ions:Reflux esophagitis Foam bed wedge for gastroesophogeal reflux disease. 1 unit 019 Suspended NebulizerIndica tions:Mild intermittent asthma without complication (HC) Nebulizer, neb kit, neb cup and mask. Med: Albuterol, or as otherwise prescribed. home use. Length of need for Medicare patients: 99. 1 Device 019 Suspended pseudoephedrine (SUDAFED) 30 mg tabletIndicatio ns:Allergic rhinitis due to pollen, unspecified seasonality Take 1 tablet by mouth every 6 hours if needed. 40 tablet 5 019 Suspended elderberry fruit and flower 460-115 mg capIndications: Body nutrition deficit One oral daily. 90 Capsule 3 021 Suspended zinc 50 mg tabletIndicatio ns:Body nutrition deficit Take 1 Tablet (50 mg) by mouth once daily. 90 Tablet 3 022 Suspended pseudoephedrine (SUDAFED 12 HOUR) 120 mg TbERIndications :Down's syndrome (HC) TAKE 1 TABLET BY MOUTH EVERY 12 HOURS NEEDED FOR NASAL CONGESTION 20 Tablet 3 023 Suspended albuterol (PROVENTIL) 0.083 % neb solutionIndicat ions:Wheeze INHALE THE CONTENTS OF ONE VIAL USING NEBULIZER EVERY THREE HOURS IF NEEDED. DO NOT EXCEED 4 DOSES PER DAY. 150 mL 2 023 2024 Discontinued Certavite-Antio xidant 18-400 mg-mcg tabIndications: Nutrition disorder TAKE ONE TABLET BY MOUTH EVERY DAY 90 Tablet 3 024 Suspended multivitamin with folic acid 0.4 mg (Tab-A-Scott)Ind ications:Nutrit ion disorder Take 1 Tablet by mouth once daily. 90 Tablet 2 024 Suspended famotidine (PEPCID) 20 mg tabletIndicatio ns:Chronic GERD Take 1 Tablet (20 mg) by mouth two times daily. 180 Tablet 3 024 Suspended fluticasone (50 mcg per actuation) nasal solution (FLONASE)Indica tions:Other allergic rhinitis INHALE 1 TO 2 SPRAYS INTO EACH NOSTRIL ONCE DAILY 48 g 2 08/13/ 024 2024 Discontinued budesonide (PULMICORT RESPULES) 0.5 mg/2 mL neb suspensionIndic ations:Wheeze GIVE 1 AMPULE BY NEUBLIZATION TWO TIMES A DAY FOR ASTHMA CONTROL FOR FLARES NEEDED. MIX WITH ALBUTEROL 60 mL 5 024 Suspended triamcinolone (ARISTOCORT; KENALOG) 0.1 % creamIndication s:Rash APPLY TOPICALLY TO AFFECTED AREA(S) TWO TIMES PER DAY NEEDED 30 g 1 024 Suspended amoxicillin 500 mg capsuleIndicati ons:Down's syndrome (HC) TAKE 4 CAPSULES (2,000 MG TOTAL) BY MOUTH 1 HOUR BEFORE DENTAL APPOINTMENT 4 Capsule 3 024 Suspended LORazepam (ATIVAN) 0.5 mg tabIndications: Anxiety Take 1 Tablet (0.5 mg) by mouth once daily if needed for Agitation. 30 Tablet 025 Suspended busPIRone (BUSPAR) 15 mg tabletIndicatio ns:Anxiety Take 1 Tablet (15 mg) by mouth two times daily. 60 Tablet 5 025 Suspended mirtazapine (REMERON) 7.5 mg tabletIndicatio ns:MARIN (generalized anxiety disorder) Take 1 Tablet (7.5 mg) by mouth at bedtime. 30 Tablet 5 025 Suspended DULoxetine (CYMBALTA) 30 mg Delayed-release capsuleIndicati ons:MARIN (generalized anxiety disorder) Take 1 Capsule (30 mg) by mouth once daily. 30 Capsule 5 025 Suspended DULoxetine (CYMBALTA) 60 mg Delayed-release capsuleIndicati ons:MARIN (generalized anxiety disorder),Depre ssive disorder Take 1 Capsule (60 mg) by mouth once daily. 30 Capsule 5 025 Suspended cetirizine (Allergy Relief, cetirizine,) 10 mg tabletIndicatio ns:Allergy, sequela TAKE ONE TABLET BY MOUTH EVERY DAY 90 Tablet 1 025 Suspended cholecalciferol (Vitamin D3) 2,000 unit tabletIndicatio ns:Nutrition disorder TAKE ONE TABLET BY MOUTH EVERY DAY 90 Tablet 1 025 Suspended ascorbic acid (vitamin C) (Vitamin C) 500 mg tabletIndicatio ns:Nutrition disorder TAKE ONE TABLET BY MOUTH EVERY DAY 90 Tablet 1 025 Suspended ammonium lactate 12 % creamIndication s:Rash APPLY TOPICALLY TO AFFECTED AREA(S) TWO TIMES A DAY 385 g 3 025 Suspended melatonin 3 mg tabletIndicatio ns:Insomnia, unspecified type Take 1 Tablet (3 mg) by mouth at bedtime. 30 Tablet 2 025 Suspended fluticasone (50 mcg per actuation) nasal solution (FLONASE)Indica tions:Other allergic rhinitis SPRAY ONE TO TWO SPRAYS INTO EACH NOSTRIL EVERY DAY 48 mL 025 Suspended furosemide 20 mg tabletIndicatio ns:Nonrheumatic mitral valve regurgitation Take 1 Tablet (20 mg) by mouth once daily. 7 Tablet 1 025 Suspended albuterol 0.083% (2.5 mg/3 mL) neb solutionIndicat ions:Wheeze INHALE THE CONTENTS OF ONE VIAL USING NEBULIZER EVERY THREE HOURS IF NEEDED. DO NOT EXCEED 4 DOSES PER DAY. 150 mL 2 025 Suspended Active Problems Problem Noted Date Diagnosed Date Nonrheumatic tricuspid valve regurgitation 08/10 Mitral regurgitation 08/10/2024 Acute on chronic heart failure 08/10/2024 Acute hypoxic respiratory failure 08/10/2024 Incomplete right bundle branch block 05/23/2023 Behavioral change 02/202304/11/2023 Absence of both cervix and uterus, acquired 08/13 COVID-19 virus infection 05/18/2021 Mixed conductive and sensori neural hearing loss of left ear with restricted hearing of right ear 06/18/2018 Poor dentition 03/28/2015 Lactose intolerance 01/01/2014 Impulse control disorder, unspecified 01/31/2012 Overview (01/31/2012): Throat clearing/hacking/spitting Vitamin D deficiency 12/23/2011 Anxiety state, unspecified 05/17/2011 Mixed hyperlipidemia 11/08/2006 Down's syndrome 08/31/2006 Unspecified congenital anomaly of heart 09/01/19 07 Overview (08/31/2006): PDA placed Unspecified asthma(493.90) 08/31/2006 Major depression in partial remission 08/31/2006 Overview (01/02/2012): Seasonal variation Resolved Problems Problem Noted Date Diagnosed Date Resolved Date Chronic motor or vocal tic disorder 02/23/2011 01/31/2012 Overview (02/23/2011): Vocal Generalized anxiety disorder 08/31/2006 12/27/2011 Reflux esophagitis 08/31/2006 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 07/21/2021 Asthma, intermittent 013 Encounters Date Type Department Care Team Description 08/11/2024 Travel 08/10/2024 2:48 PM CDT - Present Hospital Encounter [facility] [address] [place] [address] [facility], w Hospitalists Of Cardiology, C5 Pen, MD Oumar Green, Mickey Nichols MD 08/10/2024 Orders Only [facility] Scanner 1 scan: (1-Ord) [employer], CT ANGIO CHEST PE PROTOCOL, 08/10/2024 08/10/2024 Telephone [facility] [address] [facility] [place] [address] Jed Ramirez MD 08/09/2024 1:10 PM CDT Office Visit [facility] [address] [place] [address] Flori Poe PA Gi Problem (Upper abdominal pain, feels tight, burping and passing gas a lot-says she is having diarrhea lately-started a few weeks ago-no nausea-went from off and on to constant); Asthma Care Management (Needs new Rx's for asthma meds and a new asthma protocol -also coughing); Lab (Wants hormone lab tests) 08/09/2024 Orders Only [facility] Scanner 1 scan: (1-Ord) [employer], CHEST 1V, 08/09/2024 08/09/2024 Travel 08/07/2024 Travel 08/07/2024 Refill [facility] [address] [place] [address] Joe Dailey MD Refill Request (Albuterol) 08/06/2024 1:00 PM CDT Ancillary Procedure [facility] [address] [place] [address] 08/05/2024 Travel 07/23/2024 3:30 PM CDT Orders [place] [address] [place] [address] Lab, [facility] 07/23/2024 2:30 PM CDT Office Visit [facility] [address] [place] [address] Maureen Pemberton MD Follow Up (Follow up mitral valve insufficiency, review echocardiogram 07/17/2024, - yearly visit ) 07/23/2024 Telephone [facility] [address] [place] [phone] Gold Silvestre MD, PhD Appointment Request 07/22/2024 Travel 07/17/2024 2:00 PM CDT Ancillary Procedure [facility] [address] [place] [address] 07/17/2024 Travel 07/16/[address] [address] Joe Dailey MD Refill Request (Fluticasone (50 Mcg Per Actuation) Nasal) 07/05/2024 2:00 PM CDT Telemedicine [address] [address] Fe Westfall NP Telehealth; Medication Management 07/05/[address] [address] Fe Westfall NP Questions (Appointment needs to be 60 min ) 07/02/2024 Travel 06/12/2024 3:00 PM CDT Telemedicine [address] [address] Fe Westfall NP Telehealth; Medication Management 06/07/2024 Travel 05/28/[address] [address] Joe Dailey MD Refill Request (Ammonium Lactate) 05/13/2024 3:00 PM CDT Telemedicine [address] [place] [address] Fe Westfall NP Telehealth; Medication Management (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/Lost Uncle to cancer recently, and another Uncle has stage 4 cancer) from Last 3 Months Immunizations Immunization Administration Dates Next Due AMB Influenza, IIV3 (Age >=3 years)(Flu Clinic Only) 11/09/2012 AMB Influenza, IIV4 PF (=>6 mos Flulaval,Fluzone Fluarix)(Flu Clinic Only) 11/15/2019,11/06/2018,11/19/2016,2015,11/24/2014,11/11/2013 COVID-19 vaccine (Moderna 100mcg/0.5mL) PF, MDV 04/08/2020,03/16/2020 COVID-19 vaccine (Pfizer-Bio NTech 30mcg/0.3mL) 12YO+ GURPREET-SUCROSE PF, MDV 07/21/2021 DTP 09/14/1981, 2,04/13/1981,1981,02/14/1981,1980,1980 Hepatitis A (Adult) 07/23/2007,11/08/2006 Hepatitis B (Peds) 04/05/2001,10/04/1995, 996 Hepatitis B, Unspecified 04/03/1996 INFLUENZA, IIV3 PF (AGE >= 6 MO) 11/16/2023 Influenza A (H1N1), Inactiva elyse (Age >=3 Years) 01/16/2009 Influenza, IIV3 (Age >=3 years) 11/25/19 12,12/03/2010,11/19/2009,2008,11/25/2005,11/29/2004,11/24/2003,1 Influenza, IIV4 11/19/2022, 2,11/23/2020,2017 MMR 04/05/2001,01/13/1986 Oral Polio Vaccine 09/14/1981,03/02/1981, 981 Pneumococcal Conj 20-valent (Prevnar 20) 08/11/2023 Pneumococcal Poly,23-Valent (Pneumovax) 01/15/2019,09/15/1994 Td (Age >=7 Years) 08/30/1995,12/11/1985 Tdap 01/14/2016,11/07/2005 Varicella Vaccine 10/13/1994,09/15/1994 Family History Medical History Relation Name Comments Diabetes Maternal Grandfather Heart Disease Other none Cancer Paternal Grandfather esophag eal Cancer-colon Paternal Grandmother Cancer-breast No Family History Cancer-ovarian No Family History Relation Name Status Comments Maternal Grandfather Other Paternal Grandfather Paternal Grandmother Social History Tobacco Use Types Packs/Day Years Used Date Smoking Tobacco: Never Passive Smoke Exposure: Never Smokeless Tobacco: Never Tobacco Cessation:Counseling Given: Yes Alcohol Use Standard Drinks/Week Comments No 0 (1 standard drink = 0.6 oz pur e alcohol) PHQ-2 Answer Date Recorded PHQ-2 TOTAL SCORE 2 07/05/2024 Social Connections Answer Date Recorded Do you often feel lonely or isolated from those around you? 0 08/11/2024 Financial Resource Strain Answer Date R ecorded Difficulty of Paying Living Expenses 3 08/07/2024 Difficulty of Paying Living Expenses Not on file 08/07/2024 Food Insecurity Answer Date Recorded Do you worry your food will run out before you are able to buy more? 1 08/11/2024 Transportation Needs Answer Date Record ed Does lack of transportation keep you from medica l appointments? 1 08/11/2024 Does lack of transportation keep you from work, meetings or getting things that you need? 1 08/11/2024 Housing Stability Answer Date Recorded What is your housing situation today? 1 08/11/2024 Interpersonal Safety Answer Date Record ed Are you being hit, kicked, p ushed or yelled at (see row info)? No 08/11/2024 Interpersonal Safety Abuse 12 - 18 Not on file 08/11/2024 Interpersonal Safety Ambulatory Vulnerability No t on file 08/11/2024 Utilities Answer Date Recorded Do you have trouble paying f or utilities (for example, heat, electricity, water, phone)? 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 Gender Identity Not on file Sexual Orientation Not on file Obstetrics History Last Filed Vital Signs Vital Sign Reading Time Taken Comments Blood Pressure 101/60 08/12/2024 11:15 AM CDT Pulse 90 08/12/2024 11:15 AM CDT Temperature 36.9 C (98.5 F) 08/12/2024 11:15 AM CDT Respiratory Rate 20 08/12/2024 11:15 AM CDT Oxygen Saturation 96% 08/12/2024 4:17 PM CDT Inhaled Oxygen Concentration - - Weight 61.2 kg (135 lb) 08/12/2024 4:16 AM CDT Height 136.1 cm (4' 5.58) 08/11/2023 2:53 PM CD T Body Mass Index 33.06 08/11/2023 2:53 PM CDT Plan of Treatment Upcoming Encounters Date Type Department Care Team (Late st Contact Info) Description 08/19/2024 10:45 AM CDT Appointment [facility] [address] [place] [id number] 08/19/2024 11:00 AM CDT Appointment [facility] [address] [place] [address] 08/30/2024 2:00 PM CDT Telemedicine [facility] [address] [place] [address] Fe Westfall NP [address] [place] [address] 09/13/2024 1:30 PM CDT Telemedicine [facility] [address] [place] [address] Fe Westfall NP [address] [place] [address] 09/30/2024 3:00 PM CDT Office Visit [facility] [place] [address] [facility] [address] [place] [address] Gold Silvestre MD, PhD [address] [facility] [address] [place] [address] 10/25/2024 1:30 PM CDT Telemedicine [facility] [address] [place] [address] Khoi Femary grace Ramirez, LIZETH [address] [place] [address] Health Maintenance Due Date Last Done Comments BMI (ht and wt on same day) for age 18+ 08/10/2024 08/11/2023, 07/25/2022, 07/21/2021, Additional history exists Depression screening for age 12+ 07/05/2025 07/05/2024, 06/12/2024, 05/13/2024, Additional history exists Tetanus booster 01/13/2026 01/14/2016, 10/15, 08/30/1995, Additional history exists Hepatitis B series for 19+ Completed 04/05, 04/03/1996, 10/04/1995, Additional history exists Tdap Completed 01/14/2016, 11/07/2005 Hepatitis C screening for ag e 18-79 Completed 07/21/2021 HIV for age 15-65 Completed 07/25/2022 Pneumococcal series for age 6-49 Completed 08/11/2023, 01/15/2019, 09/15/1994 COVID-19 vaccine series Completed 10/26/19 24, 11/24/2022, 11/13/2021, Additional history exists Influenza Vaccine Completed 11/16/2023, , 12/04/2021, Additional history exists Procedures * The patient is currently admitted. The information in this section might not be complete until the patient is discharged. Procedure Name Priority Date/Time Associated Diagnosis Comments SCAN-CARDIAC STRIP 08/12/2024 7: 51 AM CDT WHITE BLOOD COUNT Early AM 08/12/2024 7:4 5 AM CDT MAGNESIUM Early AM 08/12/2024 7:45 AM CDT BASIC METABOLIC PANEL Early AM 08/12/2024 7:45 AM CDT SCAN-CARDIAC STRIP 08/11/2024 7: 15 PM CDT ECHO TTE COMPLETE W CONTRAST Routine 08/11/2024 5:56 PM CDT POTASSIUM STAT 08/11/2024 4:09 PM CDT SCAN-CARDIAC STRIP 08/11/2024 3: 48 PM CDT C-REACTIVE PROTEIN Today 08/11/2024 1: 55 PM CDT MAGNESIUM Today 08/11/2024 1:55 PM CDT WHITE BLOOD COUNT Today 08/11/2024 1:5 5 PM CDT BASIC METABOLIC PANEL Timed 08/11/2024 1:55 PM CDT SCAN-CARDIAC STRIP 08/11/2024 7: 23 AM CDT SCAN-CARDIAC STRIP 08/11/2024 12 :49 AM CDT SPUTUM CULTURE, STAIN Today 08/10/2024 6:25 PM CDT GLUCOSE METER Timed 08/10/2024 5:49 PM CDT XR CHEST 1 VIEW PORTABLE Routine 08/10/2024 4:15 PM CDT SCAN-CARDIAC STRIP 08/10/2024 3: 34 PM CDT BLOOD GAS,VENOUS Today 08/10/2024 3:32 PM CDT PRO-BNP Today 08/10/2024 3:32 PM CDT COMP METABOLIC PANEL Today 08/10/2024 3:32 PM CDT CBC W PLT NO DIFF Today 08/10/2024 3:3 2 PM CDT SCAN-CT INTERPRETATION 08/10/2024 12:00 AM CDT SCAN-RADIOLOGY REPORT 08/09/2024 12:00 AM CDT ECHO TTE COMPLETE WO CONTRAST TAMMY 08/06/2024 1:35 PM CDT Nonrheumatic mitral valve regurgitation BASIC METABOLIC PANEL Routine 07/23/2024 3:29 PM CDT Nonrheumatic mitral valve regurgitation PRO-BNP Routine 07/23/2024 3:29 PM CDT Nonrheumatic mitral valve regurgitation ECHO TTE COMPLETE WO CONTRAST Routine 07/17/2024 2:35 PM CDT Nonrheumatic mitral valve regurgitation LC HIV-1/O/2, 4TH GENERATION Routine 07/25/2022 12:19 PM CDT Screening for HIV (human immunodeficiency virus) ANTI HCV Routine 07/21/2021 4:35 PM CDT Need for hepatitis C screening test from Last 3 Months or Most Recently Relevant to Health Maintenance Results * SCAN-CARDIAC STRIP (08/12/2024 7:51 AM CDT) us Scanner OTHER Final Result * (ABNORMAL) WBC AM (08/12/2024 7:45 AM CDT) Only the most recent of2 resultswithin the time period is included. WHITE BLOOD COUNT 12.9(H) 4.5 - 11.0 thou/cu mm 08/12/2024 8:01 AM CDT [facility] NRBC 0.2 % 08/12/2024 8:01 AM CDT [facility] ABS NRBC 0.0 thou /cu mm 08/12/2024 8:01 AM CDT [facility] Blood BLOOD SPECIMEN / Unknown Venipuncture / Unknown 08/12/2024 7:45 AM CDT 08/12/2024 7:53 AM CDT us Lois Nuñez MD HEMATOLOGY Final Resul t [facility] [address] [place] [address], [place] * Magnesium AM (08/12/2024 7:45 AM CDT) Only the most recent of2 resultswithin the time period is included. MAGNESIUM 1.7 1.6 - 2.6 mg/dL 08/12/2024 8:27 AM CDT [facility] Blood BLOOD SPECIMEN / Unknown Venipuncture / Unknown 08/12/2024 7:45 AM CDT 08/12/2024 7:53 AM CDT us Lois Nuñez MD CHEMISTRY Final Resul t [facility] [address] [place] [address], [place] * (ABNORMAL) Basic metabolic panel AM (08/12/2024 7:45 AM CDT) Only the most recent of3 resultswithin the time period is included. SODIUM 136 136 - 145 mmol/L 08/12/2024 8:27 AM CDT [facility] POTASSIUM 3.1(L) 3.5 - 5.1 mmol/L 08/12/2024 8:27 AM CDT [facility] CHLORIDE 89(L) 98 - 107 mmol/L 08/12/2024 8:27 AM CDT [facility] CO2,TOTAL 30(H) 22 - 29 mmol/L 08/12/2024 8:27 AM CDT [facility] ANION GAP 17 5 - 18 08/12/2024 8:27 AM CDT [facility] GLUCOSE 147(H) 70 - 99 mg/dL 08/12/2024 8:27 AM T [facility] CALCIUM 8.2(L) 8.8 - 10.4 mg/dL 08/12/2024 8:27 AM T [facility] Comment: Reference ranges for this test were updated on 12/19/2023 to reflect our healthy population more accurately. Reference range changes are not retroactively applied to results, but previous results using the same methodology can be interpreted in the context of the new reference range. BUN 18 6 - 20 mg/dL 08/12/2024 8:27 AM CDT [facility] CREATININE 1.00(H) 0.50 - 0.90 mg/dL 08/12/2024 8:27 AM CDT [facility] BUN/CREAT RATIO 18 10 - 20 8:27 AM CDT [facility] eGFR 72(L) >90 mL/min/1. 73m2 08/12/2024 8:27 AM CDT [facility] Comment:As of 2021, eG FR is calculated by the CKD-EPI creatinine equation without race adjustment. eGFR can be influenced by muscle mass, exercise, and diet. The reported eGFR is an estimation only and is only applicable if the renal function is stable. Blood BLOOD SPECIMEN / Unknown Venipuncture / Unknown 08/12/2024 7:45 AM CDT 08/12/2024 7:53 AM CDT us Lois Nuñez MD CHEMISTRY Final Resul t [facility] [address] [place] [id number], [place] * SCAN-CARDIAC STRIP (08/11/2024 7:15 PM CDT) us Scanner OTHER Final Result * ECHO TTE COMPLETE W CONTRAST (08/11/2024 5:56 PM CDT) Only the most recent of3 resultswithin the time period is included. AORTIC VALVE MEAN PG 6 mmHg EJECTION FRACTION 60 % LVEDD 3.1 cm EJECTION FRACTION 55 - 60% PEAK TR VELOCITY 2.9 m/s Anatomical Region Laterality Modality Ultrasound 08/11/2024 3:00 PM CDT Narrative 08/11/2024 8:42 PM CDT ECHOCARDIOGRAM DOMINIQUE R NUEBEL : 1980 43 years Study Date: 08/11/2024 3:00:05 PM Gender: F BP: 87/55 mmHg Height: 136.00 cm BSA: 1.45 m Weight: 61.00 kg Tech: JASON Bishop MD: TRANG GUEVARA Site: [facility] Reading Location: [facility] IP Patient Location: Inpatient. Procedure: 2D w/ Contrast, Color Doppler and Spectral Doppler. Indication for study: CHF (prior complete AV canal defect and PDA s/p repair progressive AV regurg p/w refractory hypoxemia) Cardiac Rhythm: Regular.Study quality: Technically limited. Imaging limitations: This study was subject to imaging limitations due to lying in a supine position and body habitus. Final Impressions: 1. Technically limited exam. 2. Hx of AV canal and PDA s/p surgical intervention. 3. Normal LV size, mildly increased wall thickness, normal global systolic function with an estimated EF of 55 - 60%. 4. Right ventricle is not well visualized but globally function appears mildly reduce. 5. Mild-moderate tricuspid regurgitation. 6. IVC not well visualized, unable to estimate RA pressure. Comparison Compared to prior exam of 08/06/2024: Torretial TR noted on prior study was not visualized on this study, though the tricuspid valve was better seen on prior. Consider alternative imaging such as JIE if clinically indicated. Chamber Sizes and Function Normal left ventricular size, mildly increased wall thickness, normal global systolic function with an estimated EF of 55 - 60%. No resting regional wall motion abnormality visualized. Left atrial size is normal. Left atrial pressure is normal. Right ventricular cavity size is not well visualized, global systolic RV function is not well visualized. The right atrium is not well visualized. The pulmonary artery is not well visualized. The sinus of Valsalva is normal sized. The ascending aorta is not well visualized. Valves, RV Pressures and Diastolic Function The aortic valve is normal in structure and trileaflet, no stenosis and mild regurgitation. The mitral valve is normal in structure, mild mitral regurgitation. Normal diastolic function. The tricuspid valve is not well visualized, mild- moderate tricuspid regurgitation. The tricuspid regurgitant velocity is 2.9 m/s, the estimated right ventricular systolic pressure is 34 mmHg plus right atrial pressure. The pulmonic valve is not well visualized. Unable to determine pulmonary regurgitation. Masses, Effusion, Shunts There is no pericardial effusion. The inferior vena cava is not well visualized, respiratory size variation not well visualized. No left to right shunting was detected by limited color flow Doppler interrogation of the interatrial septum. MEASUREMENTS AND CALCULATIONS 2-D Measurements and LV Function: LVID (d) 3.1 cm LV FS% (2D) 29 % LVID (s) 2.2 cm LVOT diameter 1.5 cm IVS (d) 1.3 cm HR 91 bpm LVPW (d) 1.1 cm Ao Sinus 2.1 cm Ao Sinus ULN 3.4 cm Asc Ao ULN 3.4 cm Aortic Valve: Vmax 1.7 m/s Max PG 11 mmHg VTI 0.27 m Mean PG 6 mmHg Mitral Valve: MV Mean G 4 mmHg Tricuspid Valve and estimated PA pressures: TR Vmax 2.9 m/s TR maxG 34 mmHg Pulmonic Valve: PV Vmax 1.2 m/s . This study was interpreted by an [facility] accredited facility. Final Procedure Note Nicola Hankins MD - 08/11/2024 ECHOCARDIOGRAM DOMINIQUE FRAGA : 1980 43 years Study Date: 08/11/2024 3:00:05 PM Gender: F BP: 87/55 mmHg Height: 136.00 cm BSA: 1.45 m Weight: 61.00 kg Tech: AL Referring MD: TRANG GUEVARA Site: [facility] Reading Location: [facility] Patient Location: Inpatient. Procedure: 2D w/ Contrast, Color Doppler and Spectral Doppler. Indication for study: CHF (prior complete AV canal defect and PDA s/prepair progressive AV regurg p/w refractory hypoxemia) Cardiac Rhythm: Regular.Study quality: Technically limited. Imaging limitations: This study was subject to imaging limitations due tolying in a supine position and body habitus. Final Impressions: 1. Technically limited exam. 2. Hx of AV canal and PDA s/p surgical intervention. 3. Normal LV size, mildly increased wall thickness, normal globalsystolic function with an estimated EF of 55 - 60%. 4. Right ventricle is not well visualized but globally function appearsmildly reduce. 5. Mild-moderate tricuspid regurgitation. 6. IVC not well visualized, unable to estimate RA pressure. Comparison Compared to prior exam of 08/06/2024: Torretial TR noted on prior study was not visualized on this study, thoughthe tricuspid valve was better seen on prior. Consider alternative imagingsuch as JIE if clinically indicated. Chamber Sizes and Function Normal left ventricular size, mildly increased wall thickness, normalglobal systolic function with an estimated EF of 55 - 60%. No restingregional wall motion abnormality visualized. Left atrial size is normal.Left atrial pressure is normal. Right ventricular cavity size is not wellvisualized, global systolic RV function is not well visualized. The rightatrium is not well visualized. The pulmonary artery is not wellvisualized. The sinus of Valsalva is normal sized. The ascending aorta isnot well visualized. Valves, RV Pressures and Diastolic Function The aortic valve is normal in structure and trileaflet, no stenosis andmild regurgitation. The mitral valve is normal in structure, mild mitralregurgitation. Normal diastolic function. The tricuspid valve is not wellvisualized, mild- moderate tricuspid regurgitation. The tricuspidregurgitant velocity is 2.9 m/s, the estimated right ventricular systolicpressure is 34 mmHg plus right atrial pressure. The pulmonic valve is notwell visualized. Unable to determine pulmonary regurgitation. Masses, Effusion, Shunts There is no pericardial effusion. The inferior vena cava is not wellvisualized, respiratory size variation not well visualized. No left toright shunting was detected by limited color flow Doppler interrogation ofthe interatrial septum. MEASUREMENTS AND CALCULATIONS 2-D Measurements and LV Function: LVID (d) 3.1 cm LV FS% (2D) 29 % LVID (s) 2.2 cm LVOT diameter 1.5 cm IVS (d) 1.3 cm HR 91 bpm LVPW (d) 1.1 cm Ao Sinus 2.1 cm Ao Sinus ULN 3.4 cm Asc Ao ULN 3.4 cm Aortic Valve: Vmax 1.7 m/s Max PG 11 mmHg VTI 0.27 m Mean PG 6 mmHg Mitral Valve: MV Mean G 4 mmHg Tricuspid Valve and estimated PA pressures: TR Vmax 2.9 m/s TR maxG 34 mmHg Pulmonic Valve: PV Vmax 1.2 m/s . This study was interpreted by an IAC accredited facility. Final us Trang Guevara MD ECHO ORD Final Res ult * (ABNORMAL) Potassium STAT (08/11/2024 4:09 PM CDT) [facility] POTASSIUM 3.2(L) 3.5 - 5.1 mmol/L 08/11/2024 4:35 PM CDT [facility] Blood BLOOD SPECIMEN / Unknown Butterfly / Unknown 08/11/2024 4:09 PM CDT 08/11/2024 4:14 PM CDT us Lois Nuñez MD CHEMISTRY Final Resul t Performing Organization Address [facility] Co de Phone Number [facility] [address] [place] [address], [place] * SCAN-CARDIAC STRIP (08/11/2024 3:48 PM CDT) us Scanner OTHER Final Result * (ABNORMAL) C-reactive protein (08/11/2024 1:55 PM CDT) [facility] C-REACTIVE PROTEIN 20.5(H) <0.5 mg/dL 08/11/2024 2:28 PM CDT [facility] Blood BLOOD SPECIMEN / Unknown Non-Lab Venipuncture / Unknown 08/11/2024 1:55 PM CDT 08/11/2024 2:00 PM CDT us Lois Nuñez MD CHEMISTRY Final Resul t Performing Organization Address [facility] Co de Phone Number [facility] [address] [place] [address], [place] * SCAN-CARDIAC STRIP (08/11/2024 7:23 AM CDT) us Scanner OTHER Final Result * SCAN-CARDIAC STRIP (08/11/2024 12:49 AM CDT) us Scanner OTHER Final Result * Sputum culture (08/10/2024 6:25 PM CDT) CULTURE Usual trevor 08/12/2024 10:26 AM CDT [facility] GRAM STAIN 1+ PMNs 08/12/2024 10:26 AM CDT [facility] GRAM STAIN No RBCs 08/12/2024 10:26 AM CDT [facility] GRAM STAIN 1+ Epithelial cells 08/12/2024 10:26 AM CDT [facility] GRAM STAIN 3+ Gram Positive Cocci 08/12/2024 10:26 AM CDT [facility] GRAM STAIN 2+ Yeast 08/12/2024 10:26 AM CDT [facility] Sputum COUGHED SPUTUM SPECIMEN / Unknown Non-Blood / Unknown 08/10/2024 6:25 PM CDT 08/10/2024 6:37 PM CDT us Lois Nuñez MD MICROBIOLOGY Final Resul t [facility] [address] [place] [address], [place] * (ABNORMAL) GLUCOSE METER (08/10/2024 5:49 PM CDT) GLUCOSE METER 109(H) 65 - 100 mg/dL 08/10/2024 5:50 PM CDT [facility] Blood BLOOD SPECIMEN / Unknown 08/10/2024 5:49 PM CDT 08/10/2024 5:50 PM CDT us [facility] CHEMISTRY Final Re sult [facility] [address] [place] [address], [place] * XR Chest 1 view portable (08/10/2024 4:15 PM CDT) Anatomical Region Laterality Modality HEART, THORAX, CHEST Digital Rad iography 08/10/2024 9:23 PM CDT Impressions 08/10/2024 9:23 PM CDT Bilateral airspace disease, which may represent multifocal infectious/inflammatory process or pulmonary edema. Dictated by Rebel Thorne MD @ Aug 10 2024 9:23PM (Electronically Signed) [email or web address] Narrative 08/10/2024 9:23 PM CDT For Patients: As a result of the Cures Act, medical imaging exams and procedure reports are released immediately into your electronic medical record. You may view this report before your referring provider. If you have questions, please contact your health care provider. INDICATION: Shortness of breath, eval lung infiltrate. TECHNIQUE: Chest 1 view. COMPARISON: 10/12/2010. FINDINGS: Cardiovascular and mediastinum: Cardiomediastinal silhouette is partially obscured but likely stable. Median sternotomy, unchanged. Lungs and pleural spaces: Left greater than right mid and lower lung zone opacities. No large pleural effusion. No pneumothorax. Bones and soft tissues: No significant findings. Procedure Note Rebel Thorne MD - 08/10/2024 For Patients: As a result of the Cures Act, medical imagingexams and procedure reports are released immediately into your electronicmedical record. You may view this report before your referring provider.If you have questions, please contact your health care provider. INDICATION: Shortness of breath, eval lung infiltrate. TECHNIQUE: Chest 1 view. COMPARISON: 10/12/2010. FINDINGS: Cardiovascular and mediastinum: Cardiomediastinal silhouette is partiallyobscured but likely stable. Median sternotomy, unchanged. Lungs and pleural spaces: Left greater than right mid and lower lung zoneopacities. No large pleural effusion. No pneumothorax. Bones and soft tissues: No significant findings. IMPRESSION: Bilateral airspace disease, which may represent multifocalinfectious/inflammatory process or pulmonary edema. Dictated by Rebel Thorne MD @ Aug 10 2024 9:23PM (Electronically Signed) [email or web address] us Lois Nuñez MD GENERAL IMAGING Final Resul t * SCAN-CARDIAC STRIP (08/10/2024 3:34 PM CDT) us Scanner OTHER Final Result * (ABNORMAL) CBC no diff TODAY (08/10/2024 3:32 PM CDT) WHITE BLOOD COUNT 10.5 4.5 - 11.0 thou/cu mm 08/10/2024 3:54 PM CDT [facility] RED BLOOD COUNT 3.84(L) 4.00 - 5.20 mil/cu mm 08/10/2024 3:54 PM CDT [facility] HEMOGLOBIN 12.0 12.0 - 16.0 g/dL 08/10/2024 3:54 PM CDT [facility] HEMATOCRIT 36.2 33.0 - 51.0 % 08/10/2024 3:54 PM CDT [facility] MCV 94 80 - 100 fL 08/10/2024 3:54 PM CDT [facility] MCH 31.3 26.0 - 34.0 pg 08/10/2024 3:54 PM CDT [facility] MCHC 33.1 32.0 - 36.0 g/dL 08/10/2024 3:54 PM CDT [facility] RDW 15.6(H) 11.5 - 15.5 % 08/10/2024 3:54 PM CDT [facility] PLATELET COUNT 264 140 - 440 thou/cu mm 08/10/2024 3:54 PM CDT [facility] MPV 11.6(H) 6.5 - 11.0 fL 08/10/2024 3:54 PM CDT [facility] NRBC 0.5 % 08/10/2024 3:54 PM CDT [facility] ABS NRBC 0.1 thou /cu mm 08/10/2024 3:54 PM CDT [facility] Blood BLOOD SPECIMEN / Unknown Butterfly / Unknown 08/10/2024 3:32 PM CDT 08/10/2024 3:38 PM CDT us Lois Nuñez MD HEMATOLOGY Final Resul t Performing Organization Address [facility] de Phone Number [facility] [address] [address], [place] * (ABNORMAL) BLOOD GAS,VENOUS (08/10/2024 3:32 PM CDT) [facility] PH, VENOUS 7.43 7.32 - 7.43 08/10/2024 3:44 PM CDT [facility] PCO2, VENOUS 44 41 - 51 mmHg 08/10/2024 3:44 PM CDT [facility] PO2, VENOUS 49(H) 35 - 40 mmHg 08/10/2024 3:44 PM CDT [facility] HCO3,VENOUS 29 22 - 29 mmol/L 08/10/2024 3:44 PM CDT [facility] BASE EXCESS, VENOUS, POCT 4.2(H) -2.0 - 3.0 08/10/2024 3:44 PM CDT [facility] O2 SATURATION, VENOUS 82(H) 70 - 75 % 08/10/2024 3:44 PM CDT [facility] PATIENT TEMPERATURE 37.0 Degrees C 08/10/2024 3:44 PM CDT [facility] Blood VENOUS BLOOD SPECIMEN / Unknown Butterfly / Unknown 08/10/2024 3:32 PM CDT 08/10/2024 3:38 PM CDT us Lois Nuñez MD CHEMISTRY Final Resul t Performing Organization Address [facility] Co de Phone Number [facility] [address] [place] [id number], [place] * (ABNORMAL) PRO-BNP (08/10/2024 3:32 PM CDT) Only the most recent of2 resultswithin the time period is included. PRO-BNP 3,263(H) <125 pg/mL 08/10/2024 4:21 PM CDT [facility] Blood BLOOD SPECIMEN / Unknown Butterfly / Unknown 08/10/2024 3:32 PM CDT 08/10/2024 3:38 PM CDT [facility] - 08/10/2024 4:21 PM CDT The following cut-points have been suggested for the use of proBNP for the diagnostic evaluation of heart failure (HF) in patient with acute dyspnea. Patients with eGFR >= 60 Diagnosis (rule in CHF) <50 Years Old 450 pg/mL 50 - 75 Years Old 900 pg/mL >75 Years Old 1800 pg/mL Exclusion (rule out CHF) Age Independent 300 pg/mL A cutoff of 1200 pg/mL for patients with an eGFR <60 yields a diagnostic sensitivity of 89% and specificity of 72% for acute congestive heart failure. us Lois Nuñez MD SEND OUTS Final Resul t [facility] [address] [place] [id number], * (ABNORMAL) COMP METABOLIC PANEL (08/10/2024 3:32 PM CDT) SODIUM 134(L) 136 - 145 mmol/L 08/10/2024 4:18 PM CDT [facility] POTASSIUM 3.3(L) 3.5 - 5.1 mmol/L 08/10/2024 4:18 PM CDT [facility] CHLORIDE 95(L) 98 - 107 mmol/L 08/10/2024 4:18 PM CDT [facility] CO2,TOTAL 25 22 - 29 mmol/L 08/10/2024 4:18 PM T [facility] ANION GAP 14 5 - 18 08/10/2024 4:18 PM T [facility] GLUCOSE 92 70 - 99 mg/dL 08/10/2024 4:18 PM T [facility] CALCIUM 8.2(L) 8.8 - 10.4 mg/dL 08/10/2024 4:18 PM T [facility] Comment: Reference ranges for this test were updated on 12/19/2023 to reflect our healthy population more accurately. Reference range changes are not retroactively applied to results, but previous results using the same methodology can be interpreted in the context of the new reference range. BUN 20 6 - 20 mg/dL 08/10/2024 4:[address] [facility] CREATININE 1.09(H) 0.50 - 0.90 mg/dL 08/10/2024 4:18 PM T [facility] BUN/CREAT RATIO 18 10 - 20 4:18 PM T [facility] eGFR 65(L) >90 mL/min/1. 73m2 08/10/2024 4:18 PM T [facility] Comment:As of 2021, eG FR is calculated by the CKD-EPI creatinine equation without race adjustment. eGFR can be influenced by muscle mass, exercise, and diet. The reported eGFR is an estimation only and is only applicable if the renal function is stable. ALBUMIN 3.4(L) 4.0 - 4.9 g/dL 08/10/2024 4:18 PM T [facility] PROTEIN,TOTAL 7.7 6.0 - 8.0 g/dL 08/10/2024 4:18 PM T [facility] BILIRUBIN,TOTAL 0.2 0.0 - 1.2 mg/dL 08/10/2024 4:18 PM T [facility] ALK PHOSPHATASE 149(H) 35 - 104 IU/L 08/10/2024 4:18 PM CDT [facility] ALT (SGPT) 54(H) 10 - 35 IU/L 08/10/2024 4:18 PM CDT [facility] AST (SGOT) 47(H) 10 - 35 IU/L 08/10/2024 4:18 PM CDT [facility] Blood BLOOD SPECIMEN / Unknown Butterfly / Unknown 08/10/2024 3:32 PM CDT 08/10/2024 3:38 PM CDT us Lois Nuñez MD CHEMISTRY Final Resul t [facility] [address] [place] [address], [place] * SCAN-CT INTERPRETATION (08/10/2024 12:00 AM CDT) Anatomical Region Laterality Modality Other us Scanner OTHER Final Result * SCAN-RADIOLOGY REPORT (08/09/2024 12:00 AM CDT) Anatomical Region Laterality Modality Other us Scanner OTHER Final Result * LC HIV-1/O/2, 4TH GENERATION (07/25/2022 12:19 PM CDT) HIV Scr 4th Gen Non Reactive Non Reactive 07/28/2022 11:09 AM CDT [facility] Comment: HIV Negative HIV-1/HIV-2 antibodies and HIV-1 p24 antigen were NOT detected. There is no laboratory evidence of HIV infection. Blood BLOOD SPECIMEN / Unknown Butterfly / Unknown 07/25/2022 12:19 PM CDT 07/25/2022 12:20 PM CDT Narrative [facility] ([facility]) - 07/28/2022 11:09 AM CDT Performed at: [address] [place] [id number] Upholstery Trimmer: Danny Rivers MD, Phone: [phone] us Joe Dailey MD LABORATORY Final Result [facility] ([facility]) [facility] [place] [address], * ANTI HCV (07/21/2021 4:35 PM CDT) HEPATITIS C ANTIBODY Non-React lore Non-React lore 07/22/2021 5:38 PM CDT [facility] Comment:Antibodies to HCV no t detected; does not exclude the possibility of exposure to HCV. Blood BLOOD SPECIMEN / Unknown Venipuncture / Unknown 07/21/2021 4:35 PM CDT 07/21/2021 4:36 PM CDT us Joe Dailey MD SEND OUTS Final Result [facility] [address] [place] [address], [place] from Last 3 Months or Most Recently Relevant to Health Maintenance Insurance MEDICARE [place] ONLY MEDICARE PART B HB ONLY [employer] ACCESSABILITY SOLUTION MEDICARE PART A HB ONLY [facility] [employer] MEDICARE [place] ONLY Advance Directives * Full Code (Latest Code Status on File) Date Activated Date Inactivated Comments 08/10/2024 3:08 PM Question Answer Comments Code Status Discussion: Reviewed Preferences Care Teams Bank Messenger Relationship Specialty Start Date End Date Joe Dailey MD [address] [place] [address] PCP - General Family Practice 03/04/13 Javy Dao MD [address] [place] [address] Gastroenterology 12/28/12 Fe Westfall NP [address] [place] [address] [address] Nurse Practitioner 10/24/23
--- OUTSIDE RECORDS SUMMARY | 2024-08-12 17:54 | XMS_ITS | CCD ---
Author Organization Unknown Care Team Providers Care Electric Furnace Operator Name Role Phone Raisin Separator Operator, [place] Primary Care Provider Unava ilable Unavailable Chronic Care Management Unavaila ble Summary Purpose DataExchange Insurance Providers Payer name Policy type / Coverage type Covered constitution party ID Effective Begin Date Effective End Date [place] Part B [id number] Unknown Unknown [employer] ([facility]) Medicare Part B [id number] Unknown U nknown Family History Family History data not found Medication Administered No Medication Administered data Reason For Visit No Reason For Visit data
--- OUTSIDE RECORDS SUMMARY | 2024-08-12 17:54 | XMS_ITS | CCD ---
Author Organization Unknown Care Team Providers Care Pepper Cutter Name Role Phone Band Head Saw Operator, [place] Primary Care Provider Unava ilable Unavailable Chronic Care Management Unavaila ble Summary Purpose DataExchange Insurance Providers Payer name Policy type / Coverage type Covered republican ID Effective Begin Date Effective End Date [place] Part B [id number] Unknown Unknown [employer] ([facility]) Medicare Part B [id number] Unknown U nknown Family History Family History data not found Medication Administered No Medication Administered data Reason For Visit No Reason For Visit data
--- OUTSIDE RECORDS SUMMARY | 2024-08-13 01:42 | XMS_ITS | Clinical Summary ---
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 Allergies Active Allergy Reactions Criticality Noted Date [...] 2:48 PM CDT - Present Hospital Encounter [facility] [address] [place] [address] [facility], w Hospitalists Of Cardiology, C5 Pen, MD Omuar Green, Mickey Nichols MD 08/10/2024 Orders Only [facility] Scanner 1 scan: (1-Ord) [facility], CT ANGIO CHEST PE PROTOCOL, 08/10/2024 08/10/2024 Telephone [facility] [address],[facility] [address] [place] [address] Jed Ramirez MD 08/09/2024 1:10 PM CDT Office Visit [facility] [address] [place] [address] Flori Poe PA Gi Problem (Upper abdominal pain, feels tight, burping and passing gas a lot-says she is having diarrhea lately-started a few weeks ago-no nausea-went from off and on to constant); Asthma Care Management (Needs new Rx's for asthma meds and a new asthma protocol -also coughing); Lab (Wants hormone lab tests) 08/09/2024 Orders Only [facility] Scanner 1 scan: (1-Ord) [facility], CHEST 1V, 08/09/2024 08/09/2024 Travel 08/07/2024 Travel 08/07/2024 Refill [facility] [address] [place] [address] Joe Dailey MD Refill Request (Albuterol) 08/06/2024 1:00 PM CDT Ancillary Procedure [facility] [address] [place] [address] 08/05/2024 Travel 07/23/2024 3:30 PM CDT Orders Only [facility] [address] [facility] [place] [address] Lab, [place] [facility] 07/23/2024 2:30 PM CDT Office Visit [facility] [address] [place] [address] Maureen Pemberton MD Follow Up (Follow up mitral valve insufficiency, review echocardiogram 07/17/2024, - yearly visit ) 07/23/2024 Telephone [facility] [address] [facility] [address] [place] [phone] oGld Silvestre MD, PhD Appointment Request 07/22/2024 Travel 07/17/2024 2:00 PM CDT Ancillary Procedure [facility] [address] [place] [address] 07/17/2024 Travel 07/16/[address] [address] Joe Dailey MD Refill Request (Fluticasone (50 Mcg Per Actuation) Nasal) 07/05/2024 2:00 PM CDT Telemedicine [address] [address] Fe Westfall NP Telehealth; Medication Management 07/05/[address] [address] Fe Westfall NP Questions (Appointment needs to be 60 min ) 07/02/2024 Travel 06/12/2024 3:00 PM CDT Telemedicine [address] [address] Fe Westfall NP Telehealth; Medication Management 06/07/2024 Travel 05/28/[address] [address] Joe Dailey MD Refill Request (Ammonium Lactate) from Last 3 Months Immunizations Immunization Administration [...] on file 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 Gender Identity Not on file Sexual Orientation Not on file Obstetrics History Last Filed Vital Signs Vital Sign Reading Time Taken Comments Blood Pressure 125/66 08/12/2024 9:25 PM CDT Pulse 90 08/12/2024 8:05 PM CDT Temperature 36.6 C (97.9 F) 08/12/2024 8:05 PM CDT Respiratory Rate 18 08/12/2024 9:25 PM CDT Oxygen Saturation 92% 08/12/2024 9:25 PM CDT Inhaled Oxygen Concentration - - Weight 61.2 kg (135 lb) 08/12/2024 4:16 AM CDT Height 136.1 cm (4' 5.58) 08/11/2023 2:53 PM CD T Body Mass Index 33.06 08/11/2023 2:53 PM CDT Plan of Treatment Upcoming Encounters Date Type Department Care Team (Late st Contact Info) Description 08/19/2024 10:45 AM CDT Appointment [facility] [address] [place] [address] 08/19/2024 11:00 AM CDT Appointment [facility] [address] [place] [address] 08/30/2024 2:00 PM CDT Telemedicine [facility] [address] [place] [address] Fe Westfall NP [address] [place] [address] 09/13/2024 1:30 PM CDT Telemedicine [facility] [address] [place] [address] Fe Westfall NP [address] [place] [address] 09/30/2024 3:00 PM CDT Office Visit [facility] [place] [address] [facility] [address] [place] [address] Gold Silvestre MD, PhD [address] [facility] [address] [place] [address] 10/25/2024 1:30 PM CDT Telemedicine [facility] [address] [place] [address] Fe Westfall NP [address] [place] [address] Health Maintenance Due Date Last Done Comments [...] Date/Time Associated Diagnosis Comments SCAN-CARDIAC STRIP 08/12/2024 8: 35 PM CDT BLOOD CULTURE Today 08/12/2024 8:04 PM CDT SCAN CORRESP-EKG RESULTS 08/12/2024 1:22 PM CDT SCAN CORRESP-LABORATORY RESULTS 08/12/2024 1:19 PM CDT SCAN CORRESP-IMAGING 08/12/2024 1:03 PM CDT SCAN-CARDIAC STRIP 08/12/2024 7: 51 AM CDT [...] Health Maintenance Results * SCAN-CARDIAC STRIP (08/12/2024 8:35 PM CDT) us Scanner OTHER Final Result * SCAN CORRESP-EKG RESULTS (08/12/2024 1:22 PM CDT) Narrative 08/12/2024 1:22 PM CDT Ordered by an unspecified provider. us Other Clinical Staff OTHER Final Resul t * SCAN CORRESP-LABORATORY RESULTS (08/12/2024 1:19 PM CDT) Narrative 08/12/2024 1:19 PM CDT Ordered by an unspecified provider. us Other Clinical Staff OTHER Final Resul t * SCAN CORRESP-IMAGING (08/12/2024 1:03 PM CDT) Anatomical Region Laterality Modality Other Narrative 08/12/2024 1:03 PM CDT Ordered by an unspecified provider. us Other Clinical Staff OTHER Final Resul t * SCAN-CARDIAC STRIP (08/12/2024 7:51 AM CDT) us Scanner OTHER Final Result * (ABNORMAL) WBC AM (08/12/2024 7:45 AM CDT) Only the most recent of2 resultswithin the time period is included. WHITE BLOOD COUNT 12.9(H) 4.5 - 11.0 thou/cu mm 08/12/2024 8:01 AM CDT [facility] NRBC 0.2 % 08/12/2024 8:01 AM CDT [facility] ABS NRBC 0.0 thou /cu mm 08/12/2024 8:01 AM CDT [facility] Blood BLOOD SPECIMEN / Unknown Venipuncture / Unknown 08/12/2024 7:45 AM CDT 08/12/2024 7:53 AM CDT Lois Nuñez MD HEMATOLOGY Final Resul t Performing Organization Address City/[facility] Co de Phone Number [facility] [address] [place] [address], [place] * Magnesium AM (08/12/2024 7:45 AM CDT) Only the most recent of2 resultswithin the time period is included. MAGNESIUM 1.7 1.6 - 2.6 mg/dL 08/12/2024 8:27 AM CDT [facility] Blood BLOOD SPECIMEN / Unknown Venipuncture / Unknown 08/12/2024 7:45 AM CDT 08/12/2024 7:53 AM CDT Lois Nuñez MD CHEMISTRY Final Resul t Performing Organization Address City/[facility] Co de Phone Number [facility] [address] [place] [address], [place] * (ABNORMAL) Basic metabolic panel AM (08/12/2024 7:45 AM CDT) Only the most recent of3 resultswithin the time period is included. SODIUM 136 136 - 145 mmol/L 08/12/2024 8:27 AM T [facility] POTASSIUM 3.1(L) 3.5 - 5.1 mmol/L 08/12/2024 8:27 AM [facility] CHLORIDE 89(L) 98 - 107 mmol/L 08/12/2024 8:27 AM T [facility] CO2,TOTAL 30(H) 22 - 29 mmol/L 08/12/2024 8:27 AM [facility] ANION GAP 17 5 - 18 08/12/2024 8:27 AM [facility] GLUCOSE 147(H) 70 - 99 mg/dL 08/12/2024 8:27 AM [facility] CALCIUM 8.2(L) 8.8 - 10.4 mg/dL 08/12/2024 8:27 AM [facility] Comment: Reference ranges for this test were updated on 12/19/2023 to reflect our healthy population more accurately. Reference range changes are not retroactively applied to results, but previous results using the same methodology can be interpreted in the context of the new reference range. BUN 18 6 - 20 mg/dL 08/12/2024 8:27 AM [facility] CREATININE 1.00(H) 0.50 - 0.90 mg/dL 08/12/2024 8:27 AM [facility] BUN/CREAT RATIO 18 10 - 20 8:27 AM [facility] eGFR 72(L) >90 mL/min/1. 73m2 08/12/2024 8:27 AM [facility] Comment:As of 2021, eG FR is [...] Lois Nuñez MD CHEMISTRY Final Resul t [facility] [address] [place] [address], [place] * SCAN-CARDIAC STRIP (08/11/2024 7:15 PM [...] Narrative 08/11/2024 8:42 PM CDT ECHOCARDIOGRAM DOMINIQUE FRAGA : 1980 43 years Study Date: 08/11/2024 3:00:05 PM Gender: F BP: 87/55 mmHg Height: 136.00 cm BSA: 1.45 m Weight: 61.00 kg Tech: AL Referring MD: TRANG GUEVARA Site: [facility] Reading Location: [facility] Patient Location: Inpatient. Procedure: 2D w/ Contrast, [...] . This study was interpreted by an [facility] accredited facility. Final Procedure Note Nicola Hankins MD - 08/11/2024 ECHOCARDIOGRAM DOMINIQUE FRAGA : 1980 43 years Study Date: 08/11/2024 3:00:05 PM Gender: F BP: 87/55 mmHg Height: 136.00 cm BSA: 1.45 m Weight: 61.00 kg Tech: AL Referring MD: TRANG GUEVARA Site: [facility] Reading Location: [facility] Patient Location: Inpatient. [...] . This study was interpreted by an [facility] accredited facility. Final us Trang Guevara MD ECHO ORD Final Res ult * (ABNORMAL) Potassium STAT (08/11/2024 4:09 PM CDT) POTASSIUM 3.2(L) 3.5 - 5.1 mmol/L 08/11/2024 4:35 PM CDT [facility] Blood BLOOD SPECIMEN / Unknown Butterfly / Unknown 08/11/2024 4:09 PM CDT 08/11/2024 4:14 PM CDT us Lois Nuñez MD CHEMISTRY Final Resul t [facility] [address] [place] [address], * SCAN-CARDIAC STRIP (08/11/2024 3:48 PM CDT) us Scanner OTHER Final Result * (ABNORMAL) C-reactive protein (08/11/2024 1:55 PM CDT) C-REACTIVE PROTEIN 20.5(H) <0.5 mg/dL 08/11/2024 2:[address] [facility] Blood BLOOD SPECIMEN / Unknown Non-Lab Venipuncture / Unknown 08/11/2024 1:55 PM CDT 08/11/2024 2:00 PM CDT us Lois Nuñez MD CHEMISTRY Final Resul t [facility] [address] [place] [address], * SCAN-CARDIAC STRIP (08/11/2024 7:23 AM CDT) us Scanner OTHER Final Result * SCAN-CARDIAC STRIP (08/11/2024 12:49 AM CDT) us Scanner OTHER Final Result * Sputum culture (08/10/2024 6:25 PM CDT) CULTURE Usual trevor 08/12/2024 10:26 AM CDT [facility] GRAM STAIN 1+ PMNs 08/12/2024 10:26 AM CDT [facility] GRAM STAIN No RBCs 08/12/2024 10:26 AM CDT [facility] GRAM STAIN 1+ Epithelial cells 08/12/2024 10:26 AM CDT [facility] GRAM STAIN 3+ Gram Positive Cocci 08/12/2024 10:26 AM CDT [facility] GRAM STAIN 2+ Yeast 08/12/2024 10:26 AM CDT [facility] Sputum COUGHED SPUTUM SPECIMEN / Unknown Non-Blood / Unknown 08/10/2024 6:25 PM CDT 08/10/2024 6:37 PM CDT us Lois Nuñez MD MICROBIOLOGY Final Resul t Performing Organization Address City/[facility]/ZIP Co de Phone Number [facility] [address] [place] [address], [place] * (ABNORMAL) GLUCOSE METER (08/10/2024 5:49 PM CDT) [facility] Signature GLUCOSE METER 109(H) 65 - 100 mg/dL 08/10/2024 5:50 PM CDT [facility] Blood BLOOD SPECIMEN / Unknown 08/10/2024 5:49 PM CDT 08/10/2024 5:50 PM CDT us [facility] CHEMISTRY Final Re sult Performing Organization Address City/[facility] Co de Phone Number [facility] [address] [address], [place] * XR Chest 1 view portable (08/10/2024 4:15 PM CDT) Anatomical Region Laterality Modality HEART, THORAX, CHEST Digital Rad iography 08/10/2024 9:23 PM CDT Impressions 08/10/2024 9:23 PM CDT Bilateral airspace disease, which may represent multifocal infectious/inflammatory process or pulmonary edema. Dictated by Rebel Thorne MD @ Aug 10 2024 9:23PM (Electronically Signed) [email or web address] Narrative 08/10/2024 9:23 PM CDT For Patients: As a result of the Century Cures Act, medical imaging exams and procedure [...] @ Aug 10 2024 9:23PM (Electronically Signed) [email or web address] Lois Nuñez MD GENERAL IMAGING Final Resul t * SCAN-CARDIAC STRIP (08/10/2024 3:34 PM CDT) us Scanner OTHER Final Result * (ABNORMAL) CBC no diff TODAY (08/10/2024 3:32 PM CDT) WHITE BLOOD COUNT 10.5 4.5 - 11.0 thou/cu mm 08/10/2024 3:54 PM CDT [facility] RED BLOOD COUNT 3.84(L) 4.00 - 5.20 mil/cu mm 08/10/2024 3:54 PM CDT [facility] HEMOGLOBIN 12.0 12.0 - 16.0 g/dL 08/10/2024 3:54 PM CDT [facility] HEMATOCRIT 36.2 33.0 - 51.0 % 08/10/2024 3:54 PM CDT [facility] MCV 94 80 - 100 fL 08/10/2024 3:54 PM CDT [facility] MCH 31.3 26.0 - 34.0 pg 08/10/2024 3:54 PM CDT [facility] MCHC 33.1 32.0 - 36.0 g/dL 08/10/2024 3:54 PM CDT [facility] RDW 15.6(H) 11.5 - 15.5 % 08/10/2024 3:54 PM CDT [facility] PLATELET COUNT 264 140 - 440 thou/cu mm 08/10/2024 3:54 PM CDT [facility] MPV 11.6(H) 6.5 - 11.0 fL 08/10/2024 3:54 PM CDT [facility] NRBC 0.5 % 08/10/2024 3:54 PM CDT [facility] ABS NRBC 0.1 thou /cu mm 08/10/2024 3:54 PM CDT [facility] Blood BLOOD SPECIMEN / Unknown Butterfly / Unknown 08/10/2024 3:32 PM CDT 08/10/2024 3:38 PM CDT us Lois Nuñez MD HEMATOLOGY Final Resul t [facility] [address] [place] [address], * (ABNORMAL) BLOOD GAS,VENOUS (08/10/2024 3:32 PM CDT) PH, VENOUS 7.43 7.32 - 7.43 08/10/2024 3:44 PM CDT [facility] PCO2, VENOUS 44 41 - 51 mmHg 08/10/2024 3:44 PM CDT [facility] PO2, VENOUS 49(H) 35 - 40 mmHg 08/10/2024 3:44 PM CDT [facility] HCO3,VENOUS 29 22 - 29 mmol/L 08/10/2024 3:44 PM CDT [facility] BASE EXCESS, VENOUS, POCT 4.2(H) -2.0 - 3.0 08/10/2024 3:44 PM CDT [facility] O2 SATURATION, VENOUS 82(H) 70 - 75 % 08/10/2024 3:44 PM CDT [facility] PATIENT TEMPERATURE 37.0 Degrees C 08/10/2024 3:44 PM CDT [facility] Blood VENOUS BLOOD SPECIMEN / Unknown Butterfly / Unknown 08/10/2024 3:32 PM CDT 08/10/2024 3:38 PM CDT us Lois Nuñez MD CHEMISTRY Final Resul t [facility] [address] [place] [address], * (ABNORMAL) PRO-BNP (08/10/2024 3:32 PM CDT) Only the most recent of2 resultswithin the time period is included. [facility] PRO-BNP 3,263(H) <125 pg/mL 08/10/2024 4:21 PM CDT [facility] Blood BLOOD SPECIMEN / Unknown Butterfly / Unknown 08/10/2024 3:32 PM CDT 08/10/2024 3:38 PM CDT Narrative [facility] - 08/10/2024 4:21 PM CDT The [...] Nuñez MD SEND OUTS Final Resul t [facility] [address] [place] [address], * (ABNORMAL) COMP METABOLIC PANEL (08/10/2024 3:32 PM CDT) SODIUM 134(L) 136 - 145 mmol/L 08/10/2024 4:18 PM CDT [facility] POTASSIUM 3.3(L) 3.5 - 5.1 mmol/L 08/10/2024 4:18 PM CDT [facility] CHLORIDE 95(L) 98 - 107 mmol/L 08/10/2024 4:18 PM CDT [facility] CO2,TOTAL 25 22 - 29 mmol/L 08/10/2024 4:18 PM CDT [facility] ANION GAP 14 5 - 18 08/10/2024 4:18 PM CDT [facility] GLUCOSE 92 70 - 99 mg/dL 08/10/2024 4:18 PM CDT [facility] CALCIUM 8.2(L) 8.8 - 10.4 mg/dL 08/10/2024 4:18 PM CDT [facility] Comment: Reference ranges for this test were updated on 12/19/2023 to reflect our healthy population more accurately. Reference range changes are not retroactively applied to results, but previous results using the same methodology can be interpreted in the context of the new reference range. BUN 20 6 - 20 mg/dL 08/10/2024 4:18 PM CDT [facility] CREATININE 1.09(H) 0.50 - 0.90 mg/dL 08/10/2024 4:18 PM CDT [facility] BUN/CREAT RATIO 18 10 - 20 5 4:18 PM CDT [facility] eGFR 65(L) >90 mL/min/1. 73m2 08/10/2024 4:[address] [facility] Comment:As of 2021, eG FR is calculated by the CKD-EPI creatinine equation without race adjustment. eGFR can be influenced by muscle mass, exercise, and diet. The reported eGFR is an estimation only and is only applicable if the renal function is stable. ALBUMIN 3.4(L) 4.0 - 4.9 g/dL 08/10/2024 4:18 PM CDT [facility] PROTEIN,TOTAL 7.7 6.0 - 8.0 g/dL 08/10/2024 4:[address] [facility] BILIRUBIN,TOTAL 0.2 0.0 - 1.2 mg/dL 08/10/2024 4:18 PM CDT [facility] ALK PHOSPHATASE 149(H) 35 - 104 IU/L 08/10/2024 4:[address] [facility] ALT (SGPT) 54(H) 10 - 35 IU/L 08/10/2024 4:18 PM CDT [facility] AST (SGOT) 47(H) 10 - 35 IU/L 08/10/2024 4:18 PM CDT [facility] Blood BLOOD SPECIMEN / Unknown Butterfly / Unknown 08/10/2024 3:32 PM CDT 08/10/2024 3:38 PM CDT us Lois Nuñez MD CHEMISTRY Final Resul t [facility] [address] [place] [address], [place] * SCAN-CT INTERPRETATION (08/10/2024 12:00 AM CDT) Anatomical Region Laterality Modality Other us Scanner OTHER Final Result * SCAN-RADIOLOGY REPORT (08/09/2024 12:00 AM CDT) Anatomical Region Laterality Modality Other us Scanner OTHER Final Result * LC HIV-1/O/2, 4TH GENERATION (07/25/2022 12:19 PM CDT) Pathologist [facility] HIV Scr 4th Gen Non Reactive Non Reactive 07/28/2022 11:[address] [facility] ([facility]) Comment: HIV Negative HIV-1/HIV-2 antibodies and HIV-1 p24 antigen were NOT detected. There is no laboratory evidence of HIV infection. Blood BLOOD SPECIMEN / Unknown Butterfly / Unknown 07/25/2022 12:19 PM CDT 07/25/2022 12:20 PM CDT Narrative [facility]) - 07/28/2022 11:09 AM CDT Performed at: [address] [place] [id number] Surgical Processor: Danny Rivers MD, Phone: [phone] us Joe Dailey MD LABORATORY Final Result [facility]) [address] [place] [address], * ANTI HCV (07/21/2021 4:35 PM CDT) Pathologist [facility] HEPATITIS C ANTIBODY Non-React lore Non-React lore 07/22/2021 5:38 PM CDT [facility] Comment:Antibodies to HCV no t detected; does not exclude the possibility of exposure to HCV. Blood BLOOD SPECIMEN / Unknown Venipuncture / Unknown 07/21/2021 4:35 PM CDT 07/21/2021 4:36 PM CDT us Joe Dailey MD SEND OUTS Final Result [facility] [address] [place] [address], from Last 3 Months or Most Recently Relevant to Health Maintenance Insurance MEDICARE PB ONLY MEDICARE PART B HB ONLY [employer] ACCESSABILITY SOLUTION MEDICARE PART A HB ONLY [employer] MEDICARE PB ONLY Advance Directives * Full Code (Latest Code Status on File) Date Activated Date Inactivated Comments 08/10/2024 3:08 PM Question Answer Comments Code Status Discussion: Reviewed Preferences Care Teams Screen Writer Relationship Specialty Start Date End Date Joe Dailey MD [address] [place] [address] PCP - General Family Practice 03/04/13 Javy Dao MD [address] [place] [address] Gastroenterology 12/28/12 Fe Westfall NP [address] [place] [address] Nurse Practitioner 10/24/23
--- OUTSIDE RECORDS SUMMARY | 2024-08-13 02:39 | XMS_ITS | CCD ---
Author Organization Unknown Care Team Providers Care Screening Tech Name Role Phone Advertising Vice President, [place] Primary Care Provider Unava ilable Unavailable Chronic Care Management Unavaila ble Summary Purpose DataExchange Insurance Providers Payer name Policy type / Coverage type Covered alliance party ID Effective Begin Date Effective End Date Medicare [place] Medicare Part B [id number] Unknown Unknown [employer] ([facility]) Medicare Part B [id number] Unknown U nknown Family History Family History data not found Medication Administered No Medication Administered data Reason For Visit No Reason For Visit data
--- OUTSIDE RECORDS SUMMARY | 2024-08-13 02:39 | XMS_ITS | CCD ---
Author Organization Unknown Care Team Providers Care Department Chairperson Name Role Phone Janitorial Manager, [place] Primary Care Provider Unava ilable Unavailable Chronic Care Management Unavaila ble Summary Purpose [employer]Exchange Insurance Providers Payer name Policy type / Coverage type Covered green party ID Effective Begin Date Effective End Date Medicare [place] Medicare Part B [id number] Unknown Unknown [employer] ([facility]) Medicare Part B [id number] Unknown U nknown Family History Family History data not found Medication Administered No Medication Administered data Reason For Visit No Reason For Visit data
== END 2024-08-10 12:55 | disposition home or self-care (01) ==
PROVIDERS: PCP Family Medicine; Visit Provider Internal Medicine
DX: I50.811 Acute right heart failure (principal); I07.1 Rheumatic tricuspid insufficiency; I34.0 Nonrheumatic mitral (valve) insufficiency
CPT/HCPCS: A0425; A0434

== ENCOUNTER 2024-11-06 09:08 | Outpatient (CLI) | payer MEDICARE, OTHER, SELFPAY | END 2024-11-06 09:09 | disposition home or self-care (01) | LOC: AMB 11-18 14:52 | PROVIDERS: PCP Family Medicine; Visit Provider Family Medicine | DX: R06.09 Other forms of dyspnea (principal) | CPT/HCPCS: A0998 ==

== ENCOUNTER 2024-11-07 00:02 | Emergency (ER) | payer MEDICARE, OTHER, SELFPAY ==
[2024-11-07] VITALS (30 sets, daily range): BP systolic 115–140; BP diastolic 68–81; PULSE 83–110; RESP 8–30; TEMP 36.7–36.8; O2SAT 85–98; BMI 30.5
--- NOTE | 2024-11-07 00:05 | ED.GENADULT ---
HPI - General Adult General Time Seen by Provider: 00:05 Date Seen: 11/07/24 Chief complaint: Shortness of Breath/Dyspnea Stated complaint: low oxygen/trouble breathing Time Seen by Provider: 11/07/24 00:04 Source: patient and RN notes reviewed Mode of arrival: ambulatory Limitations: no limitations History of Present Illness HPI narrative: 44-year-old female with history mitral valve regurgitation, congenital heart disease who presents with low oxygen levels. Patient reportedly had low oxygen saturations yesterday morning at [facility], 85% on room air. EMS evaluated her and found her to abnormal oxygen saturations, was not brought to the emergency department that time. This evening again noted of low oxygen saturations and so brought to the department. During the course the day, patient was her usual state of health, no nasal congestion, no chest pain, shortness of breath. No nausea, vomiting, no fever. Patient herself does not complain of any chest pain, abdominal pain, or breathing difficulty at this time. Related Data Home Medications ?Medication ?Instructions ?Recorded ?Confirmed ascorbic acid (vitamin C) 250 mg 250 mg PO DAILY 12/15/21 11/07/24 tablet cholecalciferol (vitamin D3) 25 1,000 unit PO DAILY 12/15/21 11/07/24 mcg (1,000 unit) tablet melatonin 5 mg capsule 1 mg PO HS PRN 12/15/21 11/07/24 multivitamin with iron 1 tab PO QDAY 12/15/21 11/07/24 albuterol sulfate 2.5 mg/3 mL 2.5 mg continuous nebulization TID 08/09/24 11/07/24 (0.083 %) solution for nebulization PRN amoxicillin 500 mg capsule 2,000 mg PO ONCE 08/09/24 08/09/24 budesonide 0.5 mg/2 mL suspension 0.25 mg inhalation BID PRN 08/09/24 11/07/24 for nebulization (Pulmicort) buspirone 15 mg tablet 15 mg PO BID 08/09/24 11/07/24 cetirizine 10 mg tablet (Allergy 10 mg PO DAILY 08/09/24 11/07/24 Relief (cetirizine)) diphenhydramine HCl 25 mg capsule 25 - 50 mg PO QHS PRN 08/09/24 11/07/24 (Benadryl) duloxetine 30 mg capsule,delayed 30 mg PO DAILY 08/09/24 11/07/24 release duloxetine 60 mg capsule,delayed 60 mg PO DAILY 08/09/24 11/07/24 release famotidine 20 mg tablet 20 mg PO BID 08/09/24 11/07/24 fluticasone propionate 50 2 spray intranasal DAILY 08/09/24 11/07/24 mcg/actuation nasal spray,suspension (24 Hour Allergy Relief) lorazepam 0.5 mg tablet 0.5 mg PO DAILY 08/09/24 11/07/24 mirtazapine 7.5 mg tablet 7.5 mg PO QPM 08/09/24 11/07/24 pseudoephedrine HCl 30 mg tablet 30 mg PO Q6H PRN 08/09/24 11/07/24 (Sudafed) zinc gluconate 50 mg tablet 50 mg PO DAILY 08/09/24 11/07/24 hydralazine 50 mg tablet 50 mg PO 3XD 11/07/24 11/07/24 isosorbide dinitrate 20 mg tablet 20 mg PO TID 11/07/24 11/07/24 spironolactone 25 mg tablet 25 mg PO DAILY 11/07/24 11/07/24 torsemide 10 mg tablet 10 mg PO DAILY 11/07/24 11/07/24 Allergies Allergy/AdvReac Type Severity Reaction Status Date / Time metoclopramide (From Reglan) Allergy Unknown Verified 08/09/24 14:39 seasonal Allergy Mild Uncoded 12/15/21 10:25 Dust Allergy Unknown Uncoded 12/15/21 10:25 [facility] Medical History Acute myelogenous leukemia in remission ?C92.01 - Acute myeloblastic leukemia, in remission (ICD-10) Reflux esophagitis ?K21.00 - Gastro-esophageal reflux disease with esophagitis, without bleeding (ICD-10) Incomplete right bundle branch block ?I45.10 - Unspecified right bundle-branch block (ICD-10) Mixed conductive and sensorineural hearing loss of right ear ?H90.71 - Mixed conductive and sensorineural hearing loss, unilateral, right ear, with unrestricted hearing on the contralateral side (ICD-10) Poor dentition ?K08.9 - Disorder of teeth and supporting structures, unspecified (ICD-10) Lactose intolerance ?E73.9 - Lactose intolerance, unspecified (ICD-10) Impulse control disorder ?F63.9 - Impulse disorder, unspecified (ICD-10) Vitamin D deficiency ?E55.9 - Vitamin D deficiency, unspecified (ICD-10) Mild memory disturbances not amounting to dementia ?R41.3 - Other amnesia (ICD-10) Anxiety disorder ?F41.9 - Anxiety disorder, unspecified (ICD-10) Mixed hyperlipidemia ?E78.2 - Mixed hyperlipidemia (ICD-10) Major depression ?F32.9 - Major depressive disorder, single episode, unspecified (ICD-10) Asthma ?J45.909 - Unspecified asthma, uncomplicated (ICD-10) Moderate mitral valve regurgitation ?I34.0 - Nonrheumatic mitral (valve) insufficiency (ICD-10) Severe tricuspid regurgitation by prior echocardiography ?I07.1 - Rheumatic tricuspid insufficiency (ICD-10) Congenital heart disease in adult ?Q24.9 - Congenital malformation of heart, unspecified (ICD-10) Down syndrome ?Q90.9 - Down syndrome, unspecified (ICD-10) Surgical History Status post total abdominal hysterectomy ?Z90.710 - Acquired absence of both cervix and uterus (ICD-10) S/P repair of PDA (patent ductus arteriosus) ?Z87.74 - Personal history of (corrected) congenital malformations of heart and circulatory system (ICD-10) S/P atrioventricular septal defect repair ?Z87.74 - Personal history of (corrected) congenital malformations of heart and circulatory system (ICD-10) Family History Maternal Grandfather Diabetes Maternal Grandmother Colon cancer Other Alzheimers disease Social History Narrative: Mother and father are her guardians. Lives at the [place], [place]. Full resuscitation status. What is your current living situation?: I presently have a place to live Problems where you live: no known problems Problems where you live details: none In the past 12 months, utilities in danger of being shut off: no In past 12 months, lack of transportation kept you from medical appts, meetings, work, or getting things needed for daily living: unable to answer In the past 12 mos, have been you worried that your food would run out before you had money to buy more?: unable to answer In the past 12 mos, the food you bought just didn't last and you didn't have money to buy more?: unable to answer Highest level of school completed/degree received: 12th grade, no diploma Smoking Status: Never smoker How often do you have a drink containing alcohol: never AUDIT-C Alcohol total score: 0 Non-prescribed substance use: denies use How often does anyone, including family, friends and others, physically hurt you: never How often does anyone, including family, friends and others, insult or talk down to you: never How often does anyone, including family, friends and others, threaten you with harm: never How often does anyone, including family, friends and others, scream or curse at you: never Exam Narrative: Exam Narrative: General: Well-developed and well-nourished, tearful but no respiratory distress Head: Atraumatic and normocephalic Eyes: Pupils are equal reactive, extraocular motions intact, conjunctiva clear ENT: External nose and ears are normal, posterior pharynx without erythema or exudate Neck: No midline cervical tenderness, full spontaneous range of motion the neck, trachea midline, no adenopathy Heart: Regular rate and rhythm no murmurs or thrills Lungs: Clear to auscultation bilaterally without wheezes or crackles Abdomen: Soft, nontender, nondistended with active bowel sounds Musculoskeletal: No tenderness, deformity, or edema Neurologic: Awake, alert, no gross focal neurologic deficits, cranial nerves intact as tested Psych: Mood and affect are appropriate Skin: No rashes Const: Vital Signs, click to edit/add: Vital Signs - 24 hr 11/07/24 00:11 11/07/24 00:14 11/07/24 00:15 Temperature 98.1 F Pulse Rate 96 Pulse Rate [Pulse Oximeter] 96 Respiratory Rate 22 Blood Pressure Blood Pressure [Ri ght Upper Arm] 140/81 H Pulse Oximetry 85 L 94 95 Oxygen Delivery Me thod Room Air Room Air Nasal Can nula Oxygen Flow Rate 2 11/07/24 00:29 11/07/24 00:29 11/07/24 00:30 Temperature Pulse Rate 97 Pulse Rate [Pulse Oximeter] Respiratory Rate 18 Blood Pressure Blood Pressure [Ri ght Upper Arm] Pulse Oximetry 96 96 96 Oxygen Delivery Me thod Nasal Cannula Oxygen Flow Rate 1 11/07/24 01:10 11/07/24 02:03 11/07/24 02:24 Temperature Pulse Rate 93 86 95 Pulse Rate [Pulse Oximeter] Respiratory Rate 18 18 16 Blood Pressure 115/73 126/72 Blood Pressure [Ri ght Upper Arm] Pulse Oximetry 93 98 96 Oxygen Delivery Me thod OxyMask OxyMask Oxygen Flow Rate 1 2 11/07/24 03:30 Temperature Pulse Rate 90 Pulse Rate [Pulse Oximeter] Respiratory Rate 16 Blood Pressure Blood Pressure [Ri ght Upper Arm] Pulse Oximetry 95 Oxygen Delivery Me thod OxyMask Oxygen Flow Rate 2 Course Course ED Course: Reviewed prior emergency department the visit and hospital admission for acute heart failure, was eventually transferred due to worsening hypoxia. Patient had a 20 day hospitalization at that time at [facility] for hypoxic respiratory failure with findings of worsening mitral and tricuspid regurgitation on echocardiogram, acute on chronic heart failure exacerbation, concern for possible bacterial endocarditis as well as mycoplasma pneumonia, was on high-flow nasal cannula, trial on BiPAP but did not tolerate that, Lasix drip was started, patient was intubated during that admission for worsening respiratory failure. Patient was discharged on antibiotics for concern for possible culture negative endocarditis. Patient presents today with staff from [facility] with low oxygen levels, question of some epigastric pain earlier today. No cough, no fever, no runny nose. On exam here, initial oxygen saturation reported to be 85%. No respiratory distress, lungs are clear. Labs are ordered along with chest x-ray. Reevaluation(s) Time of Reevaluation #1: 01:01 Reevaluation #1: Chest x-ray independently interpreted by me with cardiomegaly but no other acute findings. Labs independently interpreted by me with normal CBC, venous blood gas with respiratory alkalosis, normal potassium normal sodium. Initial troponin 0.03 which will be repeated. EKG independently interpreted by me performed at 12:49 a.m. demonstrates sinus rhythm with occasional PAC, rate 92, incomplete right bundle-branch block, QTC 462, VA 128, no acute ischemic changes. Compared to prior of July 2024, no change. Time of Reevaluation #2: 01:12 Reevaluation #2: Labs independently interpreted by me with BNP 1870, this is elevated but significantly better than a prior admission when BNP was over 5000. Magnesium level is normal. Oxygen has been weaned down to 1 L by nasal cannula and patient is maintaining oxygen saturations. D-dimer is negative,, CT scan ordered to better evaluate pulmonary parenchyma, as chest x-ray limited by body habitus. Updated patient and family with findings and plan. Time of Reevaluation #3: 01:39 Reevaluation #3: CT scan of the chest and panel interpreted by me with diffuse ground-glass opacities, no pericardial effusion, no pleural effusion. Given concern recent admission for endocarditis, procalcitonin and blood cultures ordered although patient has no overt evidence for infection at this time. Lasix 80 mg IV ordered. IMPRESSION: 1. Extensive bilateral ground-glass attenuation with mild superimposed interlobular septal thickening, findings which may be seen in the setting of pulmonary edema versus infectious/inflammatory process. Additional Reevaluation(s): 2:15 a.m. care discussed with Dr. Naik, hospitalist. Given patient's valvular disease and rapid decompensation prior admission, we agreed that transfer to tertiary center would be most reasonable. I updated family with this plan and they are agreeable. They are requesting Ativan for the patient which she takes regularly at home and this is ordered. 2:46 a.m. care discussed with Dr. Bridges at [facility] who accepts patient for transfer with delay. 5:21 a.m. patient remains stable in the emergency department and will be transferred to [facility]. Vital Signs Vital signs: Initial Vital Signs Temperature 98.1 F 11/07/24 00:11 Temperature Source Temporal Artery Scan 11/07/24 00:11 Pulse Rate 96 11/07/24 00:11 Respiratory Rate 22 11/07/24 00:11 Blood Pressure 140/81 H 11/07/24 00:11 Blood Pressure Mean 100 11/07/24 00:11 Blood Pressure Position Sitting 11/07/24 00:11 Pulse Oximetry 85 L 11/07/24 00:11 Oxygen Delivery Method Room Air 11/07/24 00:11 Vital Signs Temperature 98.1 F 11/07/24 00:11 Pulse Rate 96 11/07/24 00:11 Respiratory Rate 22 11/07/24 00:11 Blood Pressure 140/81 H 11/07/24 00:11 Pulse Oximetry 85 L 11/07/24 00:11 Oxygen Delivery Method Room Air 11/07/24 00:11 Temperature 98.1 F 11/07/24 00:11 Pulse Rate 90 11/07/24 03:30 Respiratory Rate 16 11/07/24 03:30 Blood Pressure 126/72 11/07/24 02:24 Pulse Oximetry 95 11/07/24 03:30 Oxygen Delivery Method OxyMask 11/07/24 03:30 Oxygen Flow Rate 2 11/07/24 03:30 Medications Administered Medications: Discontinued Medications Generic Name Dose Route Start Last Admin Trade Name Freq PRN Reason Stop Dose Admin Albuterol 2.5 mg 11/07/24 02:11 11/07/24 02:24 Albuterol Sulfate 2.5 Mg/3 Ml Vial.Neb NEB 11/07/24 02:12 2.5 mg ONCE ONE Administration Furosemide 80 mg 11/07/24 01:46 11/07/24 02:00 Furosemide 10 Mg/Ml Inj IVP 11/07/24 01:47 80 mg ONCE ONE Administration Lorazepam 0.5 mg 11/07/24 02:19 11/07/24 02:22 Lorazepam 0.5 Mg Tablet PO 11/07/24 02:20 0.5 mg ONCE ONE Administration Medical Decision Making Lab Data Labs: Lab Results 11/07/24 11/07/24 11/07/24 Range/Units 00:15 00:40 00:45 WBC 8.01 (4.50-11.00) K/uL RBC 4.04 (4.00-5.20) m/uL Hgb 12.3 (12.0-16.0) gm/dL Hct 38.8 (33.0-51.0) % MCV 96 (80-100) fL MCH 30 (26-34) pg MCHC 32 (32-36) gm/dL RDW Coeff of Elsy 14.7 (11.5-15.5) % Plt Count 313 (140-440) K/uL Neut % (Auto) 54.6 (42.0-72.0) % Lymph % (Auto) 31.7 (20-44) % [place] % (Auto) 10.7 (0.0-11.0) % Eos % (Auto) 1.6 (0.0-7.0) % Baso % (Auto) 1.0 (0.0-3.0) % Neut # (Auto) 4.37 (1.7-7.0) K/uL Lymph # (Auto) 2.54 (0.90-2.90) K/uL [place] # (Auto) 0.90 (0.00-0.90) K/UL Eos # (Auto) 0.13 (0.00-0.50) K/uL Baso # (Auto) 0.08 (0.00-0.30) K/uL Abs Immat Gran (auto) 0.03 (0.00-0.30) K/uL Imm/Tot Granulo (auto) 0.4 % D-Dimer Quant (PE/DVT) < 0.27 (0.00-0.50) ug/ml VBG pH 7.478 H (7.32-7.43) VBG pCO2 33 L (40-50) mmHG VBG pO2 85.6 H (25-47) mmHG VBG HCO3 24 (21-28) mmol/L Sodium 138 (135-149) mmol/L Potassium 3.9 (3.6-5.1) mmol/L Chloride 105 (96-114) mmol/L Carbon Dioxide 25 (20-32) mmol/L Anion Gap 8 (7-15) mEq/L BUN 27 H (5-24) mg/dL Creatinine 1.0 (0.5-1.5) mg/dL Estimated Creat Clear 69.91 Estimated GFR 71 ml/min Glucose 127 H (60-115) mg/dL Calcium 8.9 (8.4-10.6) mg/dL Magnesium 2.1 (1.5-2.6) mg/dL NT-Pro-B Natriuret Pep 1870 H (See Note) pg/mL Procalcitonin 0.07 (<0.50) ng/mL SARS-CoV-2 (PCR) Negative SARS-CoV-2 (Negative) Influenza Type A (PCR) Negative PCR FLU A (Negative) Influenza Type B (PCR) Negative PCR FLU B (Negative) RSV (PCR) Negative PCR RSV (Negative) Lab Acknowledgement POC Troponin I 0.03 (0.01-0.04) ng/ml 11/07/24 11/07/24 Range/Units 01:46 02:50 WBC (4.50-11.00) K/uL RBC (4.00-5.20) m/uL Hgb (12.0-16.0) gm/dL Hct (33.0-51.0) % MCV (80-100) fL MCH (26-34) pg MCHC (32-36) gm/dL RDW Coeff of Elsy (11.5-15.5) % Plt Count (140-440) K/uL Neut % (Auto) (42.0-72.0) % Lymph % (Auto) (20-44) % [place] % (Auto) (0.0-11.0) % Eos % (Auto) (0.0-7.0) % Baso % (Auto) (0.0-3.0) % Neut # (Auto) (1.7-7.0) K/uL Lymph # (Auto) (0.90-2.90) K/uL [place] # (Auto) (0.00-0.90) K/UL Eos # (Auto) (0.00-0.50) K/uL Baso # (Auto) (0.00-0.30) K/uL Abs Immat Gran (auto) (0.00-0.30) K/uL Imm/Tot Granulo (auto) % D-Dimer Quant (PE/DVT) (0.00-0.50) ug/ml VBG pH (7.32-7.43) VBG pCO2 (40-50) mmHG VBG pO2 (25-47) mmHG VBG HCO3 (21-28) mmol/L Sodium (135-149) mmol/L Potassium (3.6-5.1) mmol/L Chloride (96-114) mmol/L Carbon Dioxide (20-32) mmol/L Anion Gap (7-15) mEq/L BUN (5-24) mg/dL Creatinine (0.5-1.5) mg/dL Estimated Creat Clear Estimated GFR ml/min Glucose (60-115) mg/dL Calcium (8.4-10.6) mg/dL Magnesium (1.5-2.6) mg/dL NT-Pro-B Natriuret Pep (See Note) pg/mL Procalcitonin (<0.50) ng/mL SARS-CoV-2 (PCR) (Negative) Influenza Type A (PCR) (Negative) Influenza Type B (PCR) (Negative) RSV (PCR) (Negative) Lab Acknowledgement Test Added POC Troponin I 0.03 (0.01-0.04) ng/ml Discharge Plan Discharge Clinical Impression: Acute respiratory failure with hypoxia, Moderate mitral valve regurgitation, Severe tricuspid regurgitation by prior echocardiography, History of congenital heart disease, Acute right-sided heart failure Patient Disposition: [facility] Prescriptions: No Action melatonin 5 mg capsule 1 mg PO HS PRN cholecalciferol (vitamin D3) 25 mcg (1,000 unit) tablet 1,000 unit PO DAILY ascorbic acid (vitamin C) 250 mg tablet 250 mg PO DAILY multivitamin with iron Tablet 1 tab PO QDAY duloxetine 30 mg capsule,delayed release(DR/EC) 30 mg PO DAILY duloxetine 60 mg capsule,delayed release(DR/EC) 60 mg PO DAILY zinc gluconate 50 mg tablet 50 mg PO DAILY cetirizine [Allergy Relief (cetirizine)] 10 mg tablet 10 mg PO DAILY famotidine 20 mg tablet 20 mg PO BID buspirone 15 mg tablet 15 mg PO BID mirtazapine 7.5 mg tablet 7.5 mg PO QPM fluticasone propionate [24 Hour Allergy Relief] 50 mcg/actuation spray,suspension 2 spray intranasal DAILY Rx Instructions: administer into each nostril amoxicillin 500 mg capsule 2,000 mg PO ONCE Rx Instructions: before dental procedures diphenhydramine HCl [Benadryl] 25 mg capsule 25 - 50 mg PO QHS PRN budesonide [Pulmicort] 0.5 mg/2 mL suspension for nebulization 0.25 mg inhalation BID PRN albuterol sulfate 2.5 mg /3 mL (0.083 %) solution for nebulization 2.5 mg continuous nebulization TID PRN pseudoephedrine HCl [Sudafed] 30 mg tablet 30 mg PO Q6H PRN lorazepam 0.5 mg tablet 0.5 mg PO DAILY Rx Instructions: 0.5 mg daily and also 0.5mg prn daily isosorbide dinitrate 20 mg tablet 20 mg PO TID Rx Instructions: take 2 tabs three times a day before meals hydralazine 50 mg tablet 50 mg PO 3XD torsemide 10 mg tablet 10 mg PO DAILY spironolactone 25 mg tablet 25 mg PO DAILY Stand Alone Forms: [facility] Info Instructions Procedures ABG Interpretation ABG Results: 11/07/24 00:40 VBG pH 7.478 H VBG pCO2 33 L VBG pO2 85.6 H VBG HCO3 24
--- OUTSIDE RECORDS SUMMARY | 2024-11-07 00:06 | XMS_ITS | Clinical Summary ---
Author Organization [facility] Address [address] [place] [id number] Care Team Providers Care Airline Ticket Agent Name Role Phone Javy Dao MD Unavailable [phone] Joe Dailey MD Primary Care Provider Fe Westfall WRAPPER OPENER Unavailable [phone] Allergies Active Allergy Reactions Criticality Noted Date Comments Dust Mites *Unknown 07/24/2012 Metoclopramide *Unknown 08/31/2006 Intol to reglan Secobarbital 08/31/2006 intol Medications Fiber cap .Pt takes 2 fiber gummies daily for constipation Fill at patient request. 60 capsule 11 012 Active photo therapy As directed. Length of need: 20-30 minutes daily in the morning 1 Units 0 012 Active miscellaneous medical supply misc As directed. Orthrotic for both shoes. 1 Units 2 014 Active medication order composerIndica tions:Reflux esophagitis Foam bed wedge for gastroesophogeal reflux disease. 1 unit 019 Active NebulizerIndic ations:Mild intermittent asthma without complication (HC) Nebulizer, neb kit, neb cup and mask. Med: Albuterol, or as otherwise prescribed. home use. Length of need for Medicare patients: 99. 1 Device 019 Active pseudoephedrin e (SUDAFED) 30 mg tabletIndicati ons:Allergic rhinitis due to pollen, unspecified seasonality Take 1 tablet by mouth every 6 hours if needed. 40 tablet 5 019 Active elderberry fruit and flower 460-115 mg capIndications :Body nutrition deficit One oral daily. 90 Capsule 3 021 Active zinc 50 mg tabletIndicati ons:Body nutrition deficit Take 1 Tablet (50 mg) by mouth once daily. 90 Tablet 3 022 Active pseudoephedrin e (SUDAFED 12 HOUR) 120 mg TbERIndication s:Down's syndrome (HC) TAKE 1 TABLET BY MOUTH EVERY 12 HOURS NEEDED FOR NASAL CONGESTION 20 Tablet 3 023 Active multivitamin with folic acid 0.4 mg (Tab-A-Scott)In dications:Nutr ition disorder Take 1 Tablet by mouth once daily. 90 Tablet 2 024 Active budesonide (PULMICORT RESPULES) 0.5 mg/2 mL neb suspensionIndi cations:Wheeze GIVE 1 AMPULE BY NEUBLIZATION TWO TIMES A DAY FOR ASTHMA CONTROL FOR FLARES NEEDED. MIX WITH ALBUTEROL 60 mL 5 024 Active triamcinolone (ARISTOCORT; KENALOG) 0.1 % creamIndicatio ns:Rash APPLY TOPICALLY TO AFFECTED AREA(S) TWO TIMES PER DAY NEEDED 30 g 1 024 Active amoxicillin 500 mg capsuleIndicat ions:Down's syndrome (HC) TAKE 4 CAPSULES (2,000 MG TOTAL) BY MOUTH 1 HOUR BEFORE DENTAL APPOINTMENT 4 Capsule 3 024 Active cetirizine (Allergy Relief, cetirizine,) 10 mg tabletIndicati ons:Allergy, sequela TAKE ONE TABLET BY MOUTH EVERY DAY 90 Tablet 1 025 Active cholecalcifero l (Vitamin D3) 2,000 unit tabletIndicati ons:Nutrition disorder TAKE ONE TABLET BY MOUTH EVERY DAY 90 Tablet 1 025 Active ascorbic acid (vitamin C) (Vitamin C) 500 mg tabletIndicati ons:Nutrition disorder TAKE ONE TABLET BY MOUTH EVERY DAY 90 Tablet 1 025 Active ammonium lactate 12 % creamIndicatio ns:Rash APPLY TOPICALLY TO AFFECTED AREA(S) TWO TIMES A DAY 385 g 3 025 Active fluticasone (50 mcg per actuation) nasal solution (FLONASE)Indic ations:Other allergic rhinitis SPRAY ONE TO TWO SPRAYS INTO EACH NOSTRIL EVERY DAY 48 mL 025 Active albuterol 0.083% (2.5 mg/3 mL) neb solutionIndica tions:Wheeze INHALE THE CONTENTS OF ONE VIAL USING NEBULIZER EVERY THREE HOURS IF NEEDED. DO NOT EXCEED 4 DOSES PER DAY. 150 mL 2 025 Active famotidine (PEPCID) 20 mg tabletIndicati ons:Chronic GERD TAKE ONE TABLET BY MOUTH TWICE A DAY . 180 Tablet 025 Active sodium chloride syrg syringe Inject 10 mL intravenous once daily. Flush PICC line before and after each infusion daily. 025 Active zinc oxide ointment 40% 40 % ointIndication s:Dermatitis Apply 1 Application topically to affected area(s) two times daily. 99 g 025 Active ketoconazole 2 % creamIndicatio ns:Dermatitis Apply 1 application topically twice daily for 14 days 60 g 025 Active mirtazapine (REMERON) 7.5 mg tabletIndicati ons:MARIN (generalized anxiety disorder) Take 1 Tablet (7.5 mg) by mouth at bedtime. 30 Tablet 5 025 Active busPIRone (BUSPAR) 15 mg tabletIndicati ons:Anxiety Take 1 Tablet (15 mg) by mouth two times daily. 60 Tablet 5 025 Active melatonin 3 mg tabletIndicati ons:Insomnia, unspecified type Take 1 Tablet (3 mg) by mouth at bedtime. 30 Tablet 2 025 Active DULoxetine (CYMBALTA) 30 mg Delayed-releas e capsuleIndicat ions:MARIN (generalized anxiety disorder) Take 1 Capsule (30 mg) by mouth once daily. 30 Capsule 5 025 Active DULoxetine (CYMBALTA) 60 mg Delayed-releas e capsuleIndicat ions:MARIN (generalized anxiety disorder),Depr essive disorder Take 1 Capsule (60 mg) by mouth once daily. 30 Capsule 5 025 Active spironolactone 25 mg tabletIndicati ons:Acute on chronic diastolic heart failure (HC) Take 1 Tablet (25 mg) by mouth once daily in the morning. 90 Tablet 3 025 Active torsemide (DEMADEX) 10 mg tabletIndicati ons:Acute on chronic diastolic heart failure (HC) Take 1 Tablet (10 mg) by mouth once daily. 90 Tablet 3 025 Active LORazepam (ATIVAN) 0.5 mg tabIndications :Anxiety Take 1 Tablet (0.5 mg) by mouth once daily. In the morning, can take an additional tablet (0.5mg) up to once daily as needed for anxiety/ agitation 45 Tablet 1 025 Active Multivitamin Cmb No.21-Iron-FA (Certavite-Ant ioxidant) 18-400 mg-mcg tabIndications :Nutrition disorder Take 1 Tablet by mouth once daily. 90 Tablet 2 025 Active hydrALAZINE (APRESOLINE TABLET) 50 mg tabletIndicati ons:Acute on chronic diastolic heart failure (HC) Take 50 mg by mouth three times daily at 0730, 1430, and 1930. 270 Tablet 3 025 Active isosorbide dinitrate (ISORDIL) 20 mg tabletIndicati ons:Acute on chronic diastolic heart failure (HC) Take 2 tablets (40mg) by mouth three times daily at 0730, 1430, and 1930. 540 Tablet 3 025 Active Certavite-Anti oxidant 18-400 mg-mcg tabIndications :Nutrition disorder TAKE ONE TABLET BY MOUTH EVERY DAY 90 Tablet 3 024 2024 Discontinued LORazepam (ATIVAN) 0.5 mg tabIndications :Anxiety Take 1 Tablet (0.5 mg) by mouth once daily if needed for Agitation. 30 Tablet 2 025 2024 Discontinued(R eorder (E-cancel not sent)) hydrALAZINE (APRESOLINE TABLET) 50 mg tabletIndicati ons:Acute on chronic diastolic heart failure (HC) Take 1 Tablet (50 mg) by mouth three times daily. 270 Tablet 3 09/26/2 025 2024 Discontinued(* Medication adjustment) isosorbide dinitrate (ISORDIL) 20 mg tabletIndicati ons:Acute on chronic diastolic heart failure (HC) Take 2 Tablets (40 mg) by mouth three times daily before meals. 540 Tablet 3 09/26/2 025 2024 Discontinued(* Medication adjustment) isosorbide dinitrate (ISORDIL) 20 mg tabletIndicati ons:Acute on chronic diastolic heart failure (HC) Take 2 tablets (40mg) by mouth three times daily 540 Tablet 3 025 2024 Discontinued(* Medication adjustment) Active Problems Problem Noted Date Diagnosed Date Stage 3a chronic kidney disease 10/03/2024 Acute pulmonary edema 08/14/2024 Acute respiratory failure with hypoxia Nonrheumatic tricuspid valve regurgitation 08/10 Mitral regurgitation [...] Encounters Date Type Department Care Team Description 11/06/2024 Refill [facility] [address] [place] [address] Joe Dailey MD Refill Request (Budesonide) 11/06/2024 Telephone [facility] [address] [place] [address] Maureen Pemberton MD Medication Management (isordil) 11/04/2024 Refill [facility] [address] [place] [address] Joe Dailey MD Refill Request (Certavite-antioxid ant) 10/30/2024 Telephone [facility] [address] [place] [address] Joe Dailey MD Questions 10/29/2024 Telephone [facility] [address] [place] [address] Kari To PA Questions 10/28/2024 1:00 PM CDT Telemedicine [facility] [address] [place] [address] Fe Westfall NP Telehealth; Medication Management; Follow Up 10/28/2024 Telephone [facility] [address] [place] [address] Maureen Pemberton MD Medication Management 10/25/2024 Travel 10/21/2024 3:40 PM CDT Ancillary Procedure [facility] [address] [place] [address] 10/21/2024 Travel 10/19/2024 Travel 10/18/2024 2:15 PM CDT Ancillary Procedure [address] [place] [address] 10/18/2024 1:40 PM CDT Office Visit [facility] [address] [place] [address] Kari To PA Shoulder Pain/problem (right shoulder pain- about a week- getting worse) 10/18/2024 Travel 10/16/2024 Telephone [facility] [address] [place] [address] Fe Westfall NP 10/03/2024 1:15 PM CDT Office Visit [facility] [address] [place] [address] Joe Dailey MD Follow Up (Hospital stay and test results) 10/03/2024 Travel 09/30/2024 3:00 PM CDT Office Visit [facility] [address] [facility] [address] [place] [address] Gold Silvestre MD, PhD Consult (per Dr Pemberton / schedule with Nirmala in valve clinic /LABS PRIOR /PT states feeling fine. No cardiac symptoms. Discuss her valves.) 09/30/2024 Travel 09/28/2024 Travel 09/26/2024 Telephone [facility] [address] [place] [address] Maureen Pemberton MD Medication Management 09/25/2024 1:30 PM CDT Home Care Visit [facility] [address] [place] [address] Sona Dominguez, NYA SN - DISCIPLINE DISCHARGE 09/25/2024 Home Care Visit [facility] [address] [place] [phone] Gunnar Lynn, OT OT - OASIS DISCHARGE 09/25/2024 Travel 09/25/2024 Telephone [facility] [address] [place] [address] Maureen Pemberton MD Medication Management 09/25/2024 Telephone [facility] [address] [place] [address] Elenita Dumont MD Infusion Therapy 09/24/2024 10:24 AM CDT Anesthesia Event [facility] [address] [place] [address] Aris Kevin MD DawoduBretangeliquelevar, STITCH BONDING MACHINE OPERATOR 09/24/2024 9:37 AM CDT - 09/24/2024 12:10 PM CDT Hospital Encounter [facility] [address] [place] [address] Jed Ramirez MD Brinker, Vincent, MD Nonrheumatic tricuspid valve regurgitation; Nonrheumatic mitral valve regurgitation Discharge Disposition: Home Self Care 09/23/2024 9:45 AM CDT Orders Only [address] [phone] [facility], [facility] <No scans attached> 09/23/2024 Telephone [facility] [address] [place] [address] Joe Dailey MD Infusion Therapy 09/23/2024 Travel 09/20/2024 1:00 PM CDT Home Care Visit [facility] [address] [place] [address] Sona Dominguez RN SN - HOME VISIT 09/19/2024 10:00 AM CDT Office Visit [facility] [address] [place] [address] Elenita Dumont MD 09/18/2024 4:00 PM CDT Home Care Visit [facility] [address] [place] [address] Karrie Pascal COTA OT - HOME VISIT 09/18/2024 Travel 2024 1:00 PM CDT Home Care Visit [facility] [address] [place] [address] Dominguez, Sona, RN SN - LONG VISIT (>90 MINUTES) 09/16/2024 3:15 PM CDT Home Care Visit [facility] [address] [place] [address] Kimberley Wheeler, PT PT - DISCIPLINE DISCHARGE 09/16/2024 11:45 AM CDT Orders Only [facility] [address] [place] [address] Lab, Sarahi <No scans attached> 09/16/2024 Orders Only [facility] Scanner 1 scan: (1-Ord) [facility] MULTIPLE LABS, 09/16/2024 09/15/2024 Travel 09/13/2024 1:30 PM CDT Telemedicine [facility] [address] [place] [address] Fe Westfall NP Telehealth; Follow Up; Medication Management 09/13/2024 12:30 PM CDT Home Care Visit [facility] [address] [place] [phone] Nicolle Parks LPN FINANCIAL OPERATIONS CLERK - HOME VISIT 09/13/2024 Telephone Bhak[facility] [address] [place] [address] Joe Dailey MD Follow Up 09/13/2024 Travel 09/12/2024 2:00 PM CDT Home Care Visit [facility] [address] [place] [phone] Kimberley Wheeler, PT PT - HOME VISIT 09/12/2024 Telephone [facility] [address] [place] [address] Elenita Duomnt MD Medication Management 09/11/2024 4:00 PM CDT Home Care Visit [facility] [address] [place] [phone] Karrie Pascal COTA OT - HOME VISIT 09/10/2024 1:00 PM CDT Home Care Visit [place] [facility] [address] [place] [phone] Sona Dominguez RN SN - LONG VISIT (>90 MINUTES) 09/10/2024 Telephone [facility] [address] [place], [place] [phone] Flori Pearson RN Pre Procedure (Spoke with perla Valdez, (legal guardian) re: JIE procedure) 09/09/2024 10:30 AM CDT Orders Only [facility] [address] [place] [address] Lab, [place] Lab 09/09/2024 Orders Only [facility] Scanner 1 scan: (1-Ord) [facility], MULTIPLE LABS, 09/09/2024 09/09/2024 Travel 09/06/2024 11:00 AM CDT Home Care Visit [facility] [address] [place] [phone] Sona Dominguez RN SN - LONG VISIT (>90 MINUTES) 09/05/2024 Telephone [facility] [address] [place] [address] Fe Westfall, WRAPPER OPENER Concerns 09/04/2024 1:00 PM CDT Home Care Visit [facility] [address] [place] [phone] Gunnar Lynn, JEFFRY OT - INITIAL ASSESSMENT 09/04/2024 9:45 AM CDT Orders Only [facility] [address] [place] [address] LabSarahi <No scans attached> 09/04/2024 Orders Only [facility] Scanner 1 scan: (1-Ord) [facility], UREA NITROGEN, CREATININE, CBC, 09/04/2024 09/04/2024 Travel 09/04/2024 Home Care Visit [facility] [address] [place] [phone] Valentina De Jesus RN CARE COORDINATION 09/03/2024 2:15 PM CDT Home Care Visit [facility] [address] [place] [phone] Sam Sharp, PT PT - INITIAL ASSESSMENT 09/03/2024 9:00 AM CDT Home Care Visit [facility] [address] [place] [phone] Sona Dominguez, RN SN - LONG VISIT (>90 MINUTES) 09/03/2024 Travel 09/03/2024 Orders Only [facility] [address] [place] [address] [place] [address] Elenita Dumont MD Lab 09/02/2024 2:05 PM CDT Office Visit [facility] [address] [place] [address] Ezio Ngo DO Hospital F/U (/Admission Date: 08/10/2024/Discharge Date: 08/30/2024/Going okay - has [facility] coming tomorrow ) 09/02/2024 Telephone [facility] [address] [place] [address] Ezio Ngo DO Medication Management (ketoconazole 2 % cream) 09/02/2024 Travel 09/02/2024 Orders Only [facility] [address] [place] [phone] Elenita Dumont MD Lab (Home care) 09/02/2024 Patient Outreach [facility] [address] [place] [address] Janiya Corrales, RN Primary RN Care Management; Hospital F/U (Lace=73) 08/31/2024 10:30 AM CDT Home Care Visit [facility] [address] [place] [address] Denise Locke, RN SN IV - START OF CARE 08/31/2024 Telephone [facility] [address] [place] [address] Denise Locke, cardiopulmonary technician and eeg tech (HOME CARE ORDERS) 08/31/2024 Plan of Care Documentation [facility] [address] [place] [phone] 08/29/2024 Travel 08/28/2024 Refill [facility] [address] [place] [address] Joe Dailey MD Refill Request (Famotidine) 08/27/2024 Transcribe Orders [facility] [address] [place] [address] Infusion, [facility] 08/27/2024 Patient Outreach [facility] [address] [place] [address] Infusion, [facility] ([place] [address]) 08/22/2024 Orders Only [facility] [address] [place] [address] John Long <No scans attached> 08/16/2024 Travel 08/15/2024 Travel 08/11/2024 Travel 08/10/2024 2:48 PM CDT - 08/30/2024 2:00 PM CDT Hospital Encounter [facility] [address] [place] [address] [facility], [facility], [address], MD Oumar Green, MD Niles Cruz, MD Dawn Bernabe, MD Ike Pantoja, MD Baldemar Zavala Hani, MBBS Acute respiratory failure with hypoxia (HC) (Primary Dx); Endocarditis, unspecified chronicity, unspecified endocarditis type; Acute on chronic diastolic heart failure (HC); Anxiety; Down's syndrome (HC); Nonrheumatic tricuspid valve regurgitation; Nonrheumatic mitral valve regurgitation Discharge Disposition: Home Health 08/10/2024 Orders Only [facility] Scanner 1 scan: (1-Ord) [facility], CT ANGIO CHEST PE PROTOCOL, 08/10/2024 08/10/2024 Telephone [facility] [address] [place] [address] Jed Ramirez MD 08/09/2024 1:10 PM CDT Office Visit [facility] [address] [facility] [place] [address] Flori Poe PA Gi Problem (Upper abdominal pain, feels tight, burping and passing gas a lot-says she is having diarrhea lately-started a few weeks ago-no nausea-went from off and on to constant); Asthma Care Management (Needs new Rx's for asthma meds and a new asthma protocol -also coughing); Lab (Wants hormone lab tests) 08/09/2024 Orders Only [facility] Scanner 1 scan: (1-Ord) [facility], CHEST 1V, 08/09/2024 08/09/2024 Travel 08/07/2024 Travel 08/07/2024 Refill [facility] [address] [facility] [place] [address] Joe Dailey MD Refill Request (Albuterol) from Last 3 Months Immunizations Immunization Administration [...] Diabetes Maternal Grandfather Heart Disease Other none Alcoholism Paternal Grandfather Cancer Paternal Grandfather esophag eal Cancer-breast Paternal Grandmother Cancer-colon Paternal Grandmother Cancer-ovarian No Family History Relation Name Status Comments Maternal Grandfather Other Paternal Grandfather Paternal Grandmother Social History Tobacco Use Types Packs/Day Years Used Date Smoking Tobacco: Never Passive Smoke Exposure: Never Smokeless Tobacco: Never Tobacco Cessation:Counseling Given: No Alcohol Use Standard Drinks/Week Comments No 0 (1 standard drink = 0.6 oz pur e alcohol) PHQ-2 Answer Date Recorded PHQ-2 TOTAL SCORE 2 10/28/2024 Social Connections Answer Date Recorded Do you [...] or yelled at (see row info)? No 09/24/2024 Interpersonal Safety Abuse 12 - 18 Not on file 09/24/2024 Interpersonal Safety Ambulatory Vulnerability No t on file 09/24/2024 Utilities Answer Date Recorded Do you have trouble paying f or utilities (for example, heat, electricity, water, phone)? 1 08/11/2024 Comments No Sex and Gender Information Value Date Recorded Sex Assigned at Not on file Legal Sex Female 6:15 AM WINDSHIELD TECHNICIAN Gender Identity Not on file Sexual Orientation Not on file Obstetrics History Last Filed Vital Signs Vital Sign Reading Time Taken Comments Blood Pressure 118/72 10/18/2024 1:52 PM CDT Pulse 98 10/18/2024 1:52 PM CDT Temperature 36.3 C (97.4 F) 09/25/2024 4:42 PM CDT Respiratory Rate 20 09/25/2024 4:42 PM CDT Oxygen Saturation 93% 10/18/2024 1:52 PM CDT Inhaled Oxygen Concentration - - Weight 61.4 kg (135 lb 4.8 oz) 10/18/2024 1:52 P M CDT Height 134.6 cm (4' 5) 09/30/2024 3:06 PM CDT Body Mass Index 33.86 09/30/2024 3:06 PM CDT Plan of Treatment Upcoming Encounters Date Type Department Care Team (Late st Contact Info) Description 12/06/2024 1:00 PM CDT Telemedicine [facility] [address] [place] [address] Fe Westfall NP [address] [place] [address] 12/31/2024 1:00 PM WINDSHIELD TECHNICIAN Appointment [facility] [address] [place] [address] 01/17/2025 1:00 PM WINDSHIELD TECHNICIAN Telemedicine [facility] [address] [place] [address] Fe Westfall NP [address] [place] [address] Health Maintenance Due Date Last Done Comments HPV series for age 9-45 (1 - Risk 3-dose SCDM series) 09/18/2007 Influenza Vaccine (#1) 2024 , 11/19/2022, 12/04/2021, Additional history exists COVID-19 vaccine series (2024- season) 2024 10/25/2024, 10/26/2023, 11/24/2022, Additional history exists BMI (ht and wt on same day) for age 18+ 09/30/2025 09/30/2024, 08/11/2023, 07/25/2022, Additional history exists Depression screening for age 12+ 10/28/2025 10/28/2024, 07/05/2024, 06/12/2024, Additional history exists Tetanus booster 01/13/2026 01/14/2016, 10/15, 08/30/1995, Additional history exists RSV vaccine for adults or (1 - 1-dose 75+ series) 09/18/2055 Hepatitis B series for 19+ Completed 04/05, 04/03/1996, 10/04/1995, Additional history exists Hepatitis C screening for ag e 18-79 Completed 07/21/2021 HIV for age 15-65 Completed 07/25/2022 Pneumococcal series for age 6-49 Completed 08/11/2023, 01/15/2019, 09/15/1994 Procedures Procedure Name Priority Date/Time Associated Diagnosis Comments XR MAMMO LAURA BILAT SCREEN Routine 10/21/2024 4:04 PM CDT Visit for screening mammogram XR SHOULDER 3 VIEWS RIGHT TAMMY 10/18/2024 2:29 PM CDT Acute pain of right shoulder EKG 12 LEAD Today 09/30/2024 3:08 PM CDT Nonrheumatic mitral valve regurgitation ECHO JIE WO CONTRAST W COLOR W LTD DOPPLER Routine 09/24/2024 10:55 AM CDT Nonrheumatic tricuspid valve regurgitation Nonrheumatic mitral valve regurgitation CBC WITH AUTO DIFFERENTIAL Routine 09/23/2024 10:21 AM CDT Infection due to Mycoplasma pneumoniae BUN Routine 09/23/2024 10:21 AM CDT Infection due to Mycoplasma pneumoniae CREATININE Routine 09/23/2024 10:21 AM CDT Infection due to Mycoplasma pneumoniae C-REACTIVE PROTEIN Routine 09/23/2024 10 :21 AM CDT Infection due to Mycoplasma pneumoniae VANCOMYCIN TROUGH Routine 09/23/2024 10: 21 AM CDT Infection due to Mycoplasma pneumoniae CBC WITH AUTO DIFFERENTIAL Routine 09/16/2024 11:59 AM CDT Infection due to Mycoplasma pneumoniae BUN Routine 09/16/2024 11:59 AM CDT Infection due to Mycoplasma pneumoniae CREATININE Routine 09/16/2024 11:59 AM CDT Infection due to Mycoplasma pneumoniae C-REACTIVE PROTEIN Routine 09/16/2024 11 :59 AM CDT Infection due to Mycoplasma pneumoniae VANCOMYCIN TROUGH Routine 09/16/2024 11: 59 AM CDT Infection due to Mycoplasma pneumoniae SCAN-LABORATORY REPORT 09/16/2024 12:00 AM CDT CBC WITH AUTO DIFFERENTIAL Routine 09/09/2024 10:47 AM CDT Infection due to Mycoplasma pneumoniae BUN Routine 09/09/2024 10:47 AM CDT Infection due to Mycoplasma pneumoniae CREATININE Routine 09/09/2024 10:47 AM CDT Infection due to Mycoplasma pneumoniae C-REACTIVE PROTEIN Routine 09/09/2024 10 :47 AM CDT Infection due to Mycoplasma pneumoniae VANCOMYCIN TROUGH Routine 09/09/2024 10: 47 AM CDT Infection due to Mycoplasma pneumoniae SCAN-LABORATORY REPORT 09/09/2024 12:00 AM CDT CBC WITH AUTO DIFFERENTIAL Routine 09/04/2024 10:20 AM CDT Infection due to Mycoplasma pneumoniae CREATININE Routine 09/04/2024 10:20 AM CDT Infection due to Mycoplasma pneumoniae C-REACTIVE PROTEIN Routine 09/04/2024 10 :20 AM CDT Infection due to Mycoplasma pneumoniae VANCOMYCIN TROUGH Routine 09/04/2024 10: 20 AM CDT Infection due to Mycoplasma pneumoniae BUN Routine 09/04/2024 10:20 AM CDT Infection due to Mycoplasma pneumoniae SCAN-LABORATORY REPORT 09/04/2024 12:00 AM CDT CBC WITH AUTO DIFFERENTIAL Routine 09/03/2024 10:36 AM CDT Infection due to Mycoplasma pneumoniae C-REACTIVE PROTEIN Routine 09/03/2024 10 :36 AM CDT Infection due to Mycoplasma pneumoniae CREATININE Routine 09/03/2024 10:36 AM CDT Infection due to Mycoplasma pneumoniae BUN Routine 09/03/2024 10:36 AM CDT Infection due to Mycoplasma pneumoniae CBC WITH AUTO DIFFERENTIAL Routine 09/03/2024 10:36 AM CDT Infection due to Mycoplasma pneumoniae URINALYSIS MACROSCOPIC - [facility] ONLY POC DIP ([facility]) Routine 09/02/2024 4:06 PM CDT Dysuria URINALYSIS MICROSCOPIC STAT 09/02/2024 3:15 PM CDT Dysuria URINE CULTURE Routine 09/02/2024 3:15 PM CDT Dysuria SCAN-CARDIAC STRIP 08/30/2024 8: 56 AM CDT GLUCOSE METER Timed 08/30/2024 7:21 AM CDT SCAN-CARDIAC STRIP 08/29/2024 8: 06 PM CDT GLUCOSE METER Timed 08/29/2024 6:54 PM CDT INSERT PICC LINE Routine 08/29/2024 5:41 PM CDT SCAN-CARDIAC STRIP 08/29/2024 4: 10 PM CDT GLUCOSE METER Timed 08/29/2024 12:06 PM CDT GLUCOSE METER Timed 08/29/2024 8:54 AM CDT SCAN-CARDIAC STRIP 08/28/2024 6: 30 AM CDT GLUCOSE METER Timed 08/27/2024 5:20 PM CDT GLUCOSE METER Timed 08/27/2024 12:00 PM CDT GLUCOSE METER Timed 08/27/2024 7:38 AM CDT SCAN-CARDIAC STRIP 08/27/2024 7: 36 AM CDT SCAN-CARDIAC STRIP 08/27/2024 1: 14 AM CDT GLUCOSE METER Timed 08/26/2024 9:12 PM CDT GLUCOSE METER Timed 08/26/2024 4:54 PM CDT GLUCOSE METER Timed 08/26/2024 1:19 PM CDT GLUCOSE METER Timed 08/26/2024 9:13 AM CDT SCAN-CARDIAC STRIP 08/26/2024 7: 46 AM CDT GLUCOSE METER Timed 08/25/2024 8:11 PM CDT GLUCOSE METER Timed 08/25/2024 5:15 PM CDT GLUCOSE METER Timed 08/25/2024 11:53 AM CDT SCAN-CARDIAC STRIP 08/25/2024 11 :17 AM CDT GLUCOSE METER Timed 08/25/2024 8:16 AM CDT CBC W PLT NO DIFF Early AM 08/25/2024 6:5 7 AM CDT BASIC METABOLIC PANEL Early AM 08/25/2024 6:57 AM CDT HEPATIC FUNCTION PANEL Early AM 08/25/2024 6:57 AM CDT POTASSIUM Timed 08/24/2024 11:28 PM CDT CREATININE Timed 08/24/2024 11:28 PM CDT VANCOMYCIN TROUGH Timed 08/24/2024 11: 28 PM CDT GLUCOSE METER Timed 08/24/2024 9:18 PM CDT GLUCOSE METER Timed 08/24/2024 5:09 PM CDT URINALYSIS MICROSCOPIC Timed 08/24/2024 12:12 PM CDT UA W/ SEDIMENT EXAM REFLEXED PER CRITERIA Today 08/24/2024 12:12 PM CDT GLUCOSE METER Timed 08/24/2024 11:43 AM CDT SCAN-CARDIAC STRIP 08/23/2024 11 :52 PM CDT GLUCOSE METER Timed 08/23/2024 9:33 PM CDT GLUCOSE METER Timed 08/23/2024 5:16 PM CDT LIPASE Add On 08/23/2024 11:49 AM CDT HEPATIC FUNCTION PANEL Add On 08/23/2024 11:49 AM CDT POTASSIUM Timed 08/23/2024 11:49 AM CDT MAGNESIUM Early AM 08/23/2024 11:49 AM CDT CBC W PLT NO DIFF Early AM 08/23/2024 11: 49 AM CDT CREATININE Early AM 08/23/2024 11:49 AM CDT SODIUM Early AM 08/23/2024 11:49 AM CDT GLUCOSE METER Timed 08/23/2024 11:21 AM CDT GLUCOSE METER Timed 08/23/2024 7:25 AM CDT SCAN-CARDIAC STRIP 08/23/2024 5: 05 AM CDT POTASSIUM Timed 08/23/2024 12:44 AM CDT GLUCOSE METER Timed 08/22/2024 9:16 PM CDT TYPE & SCREEN Today 08/22/2024 5:34 PM CDT POTASSIUM Timed 08/22/2024 5:34 PM CDT VANCOMYCIN TROUGH Timed 08/22/2024 5:3 4 PM CDT GLUCOSE METER Timed 08/22/2024 5:10 PM CDT ECHO TTE LIMITED WO CONTRAST W COLOR W LTD DOPPLER Routine 08/22/2024 12:46 PM CDT GLUCOSE METER Timed 08/22/2024 12:34 PM CDT CBC W PLT NO DIFF Early AM 08/22/2024 10: 41 AM CDT BASIC METABOLIC PANEL Early AM 08/22/2024 10:41 AM CDT MAGNESIUM Early AM 08/22/2024 10:41 AM CDT GLUCOSE METER Timed 08/22/2024 7:25 AM CDT SCAN-CARDIAC STRIP 08/22/2024 1: 01 AM CDT GLUCOSE METER Timed 08/21/2024 9:10 PM CDT SCAN-CARDIAC STRIP 08/21/2024 9: 08 PM CDT GLUCOSE METER Timed 08/21/2024 3:48 PM CDT SODIUM TAMMY 08/21/2024 3:44 PM CDT POTASSIUM Timed 08/21/2024 3:44 PM CDT XR VIDEO SWALLOW W SPEECH Routine 08/21/2024 1:28 PM CDT GLUCOSE METER Timed 08/21/2024 12:09 PM CDT GLUCOSE METER Timed 08/21/2024 7:52 AM CDT GLUCOSE METER Timed 08/21/2024 4:17 AM CDT MAGNESIUM TAMMY 08/21/2024 4:10 AM CDT BASIC METABOLIC PANEL Early AM 08/21/2024 4:10 AM CDT CBC W PLT NO DIFF Early AM 08/21/2024 4:1 0 AM CDT GLUCOSE METER Timed 08/20/2024 11:46 PM CDT GLUCOSE METER Timed 08/20/2024 8:12 PM CDT GLUCOSE METER Timed 08/20/2024 5:26 PM CDT POTASSIUM Timed 08/20/2024 2:09 PM CDT GLUCOSE METER Timed 08/20/2024 12:[address] CARDIAC LIMITED Routine 08/20/2024 11:30 AM CDT GLUCOSE METER Timed 08/20/2024 8:35 AM CDT MAGNESIUM TAMMY 08/20/2024 5:[address] [place] [place] MISCELLANEOUS SENDOUT Routine 08/20/2024 5:58 AM CDT POTASSIUM Timed 08/20/2024 5:58 AM CDT MISCELLANEOUS SEND OUT Routine 08/20/2024 5:58 AM CDT BASIC METABOLIC PANEL Early AM 08/20/2024 5:58 AM CDT XR CHEST 1 VIEW PORTABLE Routine 08/20/2024 5:18 AM CDT GLUCOSE METER Timed 08/20/2024 3:55 AM CDT GLUCOSE METER Timed 08/20/2024 12:14 AM CDT POTASSIUM Timed 08/19/2024 10:45 PM CDT GLUCOSE METER Timed 08/19/2024 10:28 PM CDT SCAN-CARDIAC STRIP 08/19/2024 8: 56 PM CDT GLUCOSE METER Timed 08/19/2024 8:16 PM CDT POTASSIUM Timed 08/19/2024 4:25 PM CDT GLUCOSE METER Timed 08/19/2024 4:18 PM CDT VANCOMYCIN TROUGH Timed 08/19/2024 3:0 7 PM CDT GLUCOSE METER Timed 08/19/2024 11:20 AM CDT POTASSIUM Timed 08/19/2024 11:19 AM CDT SCAN-CARDIAC STRIP 08/19/2024 10 :30 AM CDT GLUCOSE METER Timed 08/19/2024 8:38 AM CDT GLUCOSE METER Timed 08/19/2024 6:40 AM CDT GLUCOSE METER Timed 08/19/2024 5:42 AM CDT GLUCOSE METER Timed 08/19/2024 4:52 AM CDT GLUCOSE METER Timed 08/19/2024 3:37 AM CDT MAGNESIUM Early AM 08/19/2024 3:37 AM CDT BASIC METABOLIC PANEL Early AM 08/19/2024 3:37 AM CDT CK TOTAL Timed 08/19/2024 3:37 AM CDT TRIGLYCERIDES Timed 08/19/2024 3:37 AM CDT CBC W PLT NO DIFF Timed 08/19/2024 2:1 3 AM CDT GLUCOSE METER Timed 08/19/2024 2:07 AM CDT POTASSIUM Timed 08/19/2024 1:59 AM CDT [facility] D[facility] ONLY Timed 08/19/2024 1:59 AM CDT GLUCOSE METER Timed 08/19/2024 12:59 AM CDT GLUCOSE METER Timed 08/18/2024 11:49 PM CDT GLUCOSE METER Timed 08/18/2024 10:03 PM CDT GLUCOSE METER Timed 08/18/2024 9:08 PM CDT POTASSIUM Timed 08/18/2024 9:06 PM CDT GLUCOSE METER Timed 08/18/2024 6:58 PM CDT GLUCOSE METER Timed 08/18/2024 3:47 PM CDT GLUCOSE METER Timed 08/18/2024 3:08 PM CDT POTASSIUM Timed 08/18/2024 2:11 PM CDT [facility] D[facility] ONLY Timed 08/18/2024 2:11 PM CDT GLUCOSE METER Timed 08/18/2024 1:20 PM CDT GLUCOSE METER Timed 08/18/2024 12:17 PM CDT GLUCOSE METER Timed 08/18/2024 11:00 AM CDT GLUCOSE METER Timed 08/18/2024 9:57 AM CDT POTASSIUM Timed 08/18/2024 8:48 AM CDT GLUCOSE METER Timed 08/18/2024 8:44 AM CDT XR CHEST 1 VIEW PORTABLE Routine 08/18/2024 7:47 AM CDT SCAN-CARDIAC STRIP 08/18/2024 7: 00 AM CDT GLUCOSE METER Timed 08/18/2024 5:32 AM CDT GLUCOSE METER Timed 08/18/2024 5:30 AM CDT O2 SATURATION,MEASURED Timed 08/18/2024 5:22 AM CDT ARTERIAL BLOOD GAS Timed 08/18/2024 5: 22 AM CDT PLATELET ESTIMATE Timed 08/18/2024 3:5 8 AM CDT CBC W PLT NO DIFF Early AM 08/18/2024 3:5 8 AM CDT [facility] D[facility] Early AM 08/18/2024 3:58 AM CDT BASIC METABOLIC PANEL Early AM 08/18/2024 3:58 AM CDT GLUCOSE METER Timed 08/18/2024 3:17 AM CDT GLUCOSE METER Timed 08/18/2024 2:09 AM CDT GLUCOSE METER Timed 08/17/2024 10:04 PM CDT MAGNESIUM Timed 08/17/2024 8:24 PM CDT POTASSIUM Timed 08/17/2024 8:24 PM CDT GLUCOSE METER Timed 08/17/2024 5:51 PM CDT BASIC METABOLIC PANEL Today 08/17/2024 3:54 PM CDT GLUCOSE METER Timed 08/17/2024 1:50 PM CDT O2 SATURATION,MEASURED Timed 08/17/2024 12:00 PM CDT SODIUM Today 08/17/2024 12:00 PM CDT GLUCOSE METER Timed 08/17/2024 10:31 AM CDT O2 SATURATION,MEASURED Timed 08/17/2024 10:31 AM CDT GLUCOSE METER Timed 08/17/2024 5:58 AM CDT POTASSIUM Timed 08/17/2024 5:54 AM CDT ARTERIAL BLOOD GAS Timed 08/17/2024 4: 56 AM CDT O2 SATURATION,MEASURED Timed 08/17/2024 4:56 AM CDT XR CHEST 1 VIEW PORTABLE Routine 08/17/2024 4:47 AM CDT CBC W PLT NO DIFF Timed 08/17/2024 3:5 6 AM CDT MAGNESIUM Timed 08/17/2024 3:54 AM CDT [facility] D[facility] ONLY Early AM 08/17/2024 3:54 AM CDT BASIC METABOLIC PANEL Early AM 08/17/2024 3:54 AM CDT CK TOTAL Timed 08/17/2024 3:54 AM CDT TRIGLYCERIDES Timed 08/17/2024 3:54 AM CDT GLUCOSE METER Timed 08/17/2024 3:51 AM CDT GLUCOSE METER Timed 08/17/2024 2:00 AM CDT POTASSIUM Timed 08/17/2024 1:56 AM CDT SCAN-CARDIAC STRIP 08/17/2024 12 :17 AM CDT GLUCOSE METER Timed 08/16/2024 10:27 PM CDT O2 SATURATION,MEASURED Today 08/16/2024 8:00 PM CDT ARTERIAL BLOOD GAS Timed 08/16/2024 8: 00 PM CDT POTASSIUM Timed 08/16/2024 8:00 PM CDT GLUCOSE METER Timed 08/16/2024 5:59 PM CDT EKG 12 LEAD Routine 08/16/2024 2:55 PM CDT GLUCOSE METER Timed 08/16/2024 1:43 PM CDT MAGNESIUM Add On 08/16/2024 1:40 PM CDT ARTERIAL BLOOD GAS Timed 08/16/2024 1: 40 PM CDT BASIC METABOLIC PANEL Timed 08/16/2024 1:40 PM CDT VANCOMYCIN Timed 08/16/2024 1:40 PM CDT [facility] DRAW ONLY Timed 08/16/2024 1:40 PM CDT GLUCOSE METER Timed 08/16/2024 10:10 AM CDT ARTERIAL BLOOD GAS Today 08/16/2024 8: 52 AM CDT XR CHEST 1 VIEW PORTABLE Routine 08/16/2024 8:26 AM CDT ALT (SGPT) TAMMY 08/16/2024 4:49 AM CDT AST (SGOT) TAMMY 08/16/2024 4:49 AM CDT BILIRUBIN DIRECT TAMMY 08/16/2024 4:49 AM CDT POTASSIUM TAMMY 08/16/2024 4:44 AM CDT O2 SATURATION,MEASURED Timed 08/16/2024 4:44 AM CDT HEMOGLOBIN Early AM 08/16/2024 4:44 AM CDT WHITE BLOOD COUNT Early AM 08/16/2024 4:4 4 AM CDT GLUCOSE METER Timed 08/16/2024 4:06 AM CDT [facility] D[facility] ONLY Timed 08/16/2024 3:59 AM CDT BASIC METABOLIC PANEL Early AM 08/16/2024 3:59 AM CDT HEPATIC FUNCTION PANEL Early AM 08/16/2024 3:59 AM CDT POTASSIUM Timed 08/16/2024 12:37 AM CDT MAGNESIUM Timed 08/16/2024 12:37 AM CDT SCAN-RADIOLOGY REPORT 08/16/2024 12:00 AM CDT XR ABDOMEN 1 VIEW PORTABLE Routine 08/15/2024 9:32 PM CDT BLOOD CULTURE Today 08/15/2024 9:13 PM CDT BLOOD CULTURE Today 08/15/2024 9:12 PM CDT SCAN-CARDIAC STRIP 08/15/2024 6: 26 PM CDT GLUCOSE METER Timed 08/15/2024 6:19 PM CDT ARTERIAL BLOOD GAS Timed 08/15/2024 6: 15 PM CDT POTASSIUM Timed 08/15/2024 5:40 PM CDT [facility] DRAW ONLY Timed 08/15/2024 5:[address] CARDIAC MORPHOLOGY W CV DUAL READ Routine 08/15/2024 2:[address] CARDIAC MORPHOLOGY W RAD DUAL READ Routine 08/15/2024 2:55 PM CDT GLUCOSE METER Timed 08/15/2024 2:23 PM CDT POTASSIUM Timed 08/15/2024 2:23 PM CDT MAGNESIUM Timed 08/15/2024 2:23 PM CDT XR CHEST 1 VIEW PORTABLE Routine 08/15/2024 1:03 PM CDT ARTERIAL BLOOD GAS Timed 08/15/2024 12 :[address] [place] MISCELLANEOUS SENDOUT Routine 08/15/2024 11:33 AM CDT MISCELLANEOUS SEND OUT Routine 08/15/2024 11:33 AM CDT POTASSIUM Timed 08/15/2024 8:41 AM CDT GLUCOSE METER Timed 08/15/2024 8:40 AM CDT CBC W PLT NO DIFF Early AM 08/15/2024 4:5 7 AM CDT O2 SATURATION,MEASURED Today 08/15/2024 4:37 AM CDT GLUCOSE METER Timed 08/15/2024 4:22 AM CDT HEPATIC FUNCTION PANEL TAMMY 08/15/2024 4:20 AM CDT [facility] DRAW ONLY Today 08/15/2024 4:20 AM CDT ARTERIAL BLOOD GAS Today 08/15/2024 4: 20 AM CDT MAGNESIUM Early AM 08/15/2024 4:20 AM CDT CK TOTAL Timed 08/15/2024 4:20 AM CDT TRIGLYCERIDES Timed 08/15/2024 4:20 AM CDT BASIC METABOLIC PANEL Early AM 08/15/2024 4:20 AM CDT ARTERIAL BLOOD GAS TAMMY 08/14/2024 9: 50 PM CDT POTASSIUM Timed 08/14/2024 9:50 PM CDT SCAN-CARDIAC STRIP 08/14/2024 9: 30 PM CDT GLUCOSE METER Timed 08/14/2024 7:52 PM CDT RESPIRATORY PANEL MULTIPLEX PCR TAMMY 08/14/2024 6:43 PM CDT ARTERIAL BLOOD GAS Timed 08/14/2024 6: 43 PM CDT GLUCOSE METER Timed 08/14/2024 4:17 PM CDT LACTATE ARTERIAL TAMMY 08/14/2024 4:11 PM CDT BASIC METABOLIC PANEL TAMMY 08/14/2024 4:11 PM CDT ARTERIAL BLOOD GAS TAMMY 08/14/2024 4: 11 PM CDT O2 SATURATION,MEASURED TAMMY 08/14/2024 4:11 PM CDT SPUTUM CULTURE, STAIN Routine 08/14/2024 4:11 PM CDT ECHO JIE WO CONTRAST W COLOR W LTD DOPPLER W BUBBLE STAT 08/14/2024 3:54 PM CDT URINALYSIS MICROSCOPIC Timed 08/14/2024 3:06 PM CDT UA W/ SEDIMENT EXAM REFLEXED PER CRITERIA Today 08/14/2024 3:06 PM CDT INTUBATION Routine 08/14/2024 2:29 PM CDT CENTRAL LINE INSERTION Routine 08/14/2024 2:29 PM CDT ARTERIAL LINE Routine 08/14/2024 2:29 PM CDT XR CHEST 1 VIEW PORTABLE STAT 08/14/2024 2:13 PM CDT COMPREHENSIVE BLOOD GAS ARTERIAL Timed 08/14/2024 1:01 PM CDT PATH NON CITY PLANNING TEACHER CYTOLOGY Today 08/14/2024 12:54 PM CDT LEGIONELLA CULT [id number] Timed 08/14/2024 12:54 PM CDT LEGIONELLA SPECIES CULTURE (NON BLOOD) Today 08/14/2024 12:54 PM CDT SEAN PREP, OTHER SOURCE Today 08/14/2024 12:54 PM CDT BAL COUNT AND DIFF Today 08/14/2024 12 :54 PM CDT AFB CULTURE, STAIN Today 08/14/2024 12 :54 PM CDT FUNGUS CULT, OTHER SOURCE Today 08/14/2024 12:54 PM CDT BRONCH QUANT CULT STAIN Today 08/14/2024 12:54 PM CDT PNEUMOCYSTIS JIROVECI PCR Today 08/14/2024 12:54 PM CDT COMPREHENSIVE BLOOD GAS ARTERIAL Timed 08/14/2024 12:30 PM CDT XR CHEST 1 VIEW PORTABLE STAT 08/14/2024 7:45 AM CDT COMPREHENSIVE BLOOD GAS ARTERIAL Timed 08/14/2024 7:30 AM CDT BRUCELLA ANTIBODY IGM EIA Early AM 08/14/2024 6:31 AM CDT BRUCELLA ANTIBODY IGG EIA Early AM 08/14/2024 6:31 AM CDT Q FEVER ANTIBODIES IGG Early AM 08/14/2024 6:31 AM CDT CBC W PLT NO DIFF Early AM 08/14/2024 6:3 1 AM CDT BASIC METABOLIC PANEL Early AM 08/14/2024 6:31 AM CDT SCAN-CARDIAC STRIP 08/13/2024 10 :35 PM CDT LEGIONELLA AND PNEUMOCOCCAL URINE ANTIGEN Today 08/13/2024 9:42 PM CDT RESPIRATORY PANEL MULTIPLEX PCR Today 08/13/2024 2:14 PM CDT MRSA/SA PCR Today 08/13/2024 2:14 PM CDT SCAN-CARDIAC STRIP 08/13/2024 7: 27 AM CDT WHITE BLOOD COUNT Early AM 08/13/2024 5:4 6 AM CDT CREATININE Early AM 08/13/2024 5:46 AM CDT SODIUM Early AM 08/13/2024 5:46 AM CDT POTASSIUM Today 08/13/2024 5:46 AM CDT SEDIMENTATION RATE Today 08/13/2024 5: 46 AM CDT SCAN-CARDIAC STRIP 08/12/2024 8: 35 PM CDT [...] CDT SCAN-RADIOLOGY REPORT 08/09/2024 12:00 AM CDT LC HIV-1/O/2, 4TH GENERATION Routine 07/25/2022 12:19 PM CDT Screening for HIV (human immunodeficiency virus) ANTI HCV Routine 07/21/2021 4:35 PM CDT Need for hepatitis C screening test from Last 3 Months or Most Recently Relevant to Health Maintenance Results * XR MAMMO LAURA BILAT SCREEN (10/21/2024 4:04 PM CDT) Anatomical Region Laterality Modality BREASTS, Breast Left, Breast Right Bilateral Mammography Impressions 10/21/2024 4:47 PM CDT There is no radiographic evidence for malignancy. Recommend annual mammograms. MAMMOGRAM ASSESSMENT: ACR 1 Negative PATIENTS: You will also receive a letter with your examination results in an easy to read format. If you have questions about your results, please contact your referring provider. Narrative 10/21/2024 4:47 PM CDT For Patients: As a result of the Century Cures Act, medical imaging exams and procedure reports are released immediately into your electronic medical record. You may view this report before your referring provider. If you have questions, please contact your health care provider. XR MAMMO LAURA BILAT SCREEN [[id number]] CLINICAL HISTORY: This is an asymptomatic 44 y.o. patient. INDICATION FOR EXAM: Mammogram Screening. TECHNIQUE: CC and MLO views were obtained. This study was evaluated with the assistance of Computer-Aided Detection. Breast Tomosynthesis was used in interpretation. COMPARISON FILM: Yes 09/11/23 [facility] 08/02/22 [facility] FINDINGS: The breasts are heterogeneously dense, which may obscure small masses. There are no dominant masses, suspicious micro calcifications or areas of architectural distortion. us Joe Dailey MD MAMMO Final Result * XR SHOULDER 3 VIEWS RIGHT (10/18/2024 2:29 PM CDT) Anatomical Region Laterality Modality SHOULDERS, SHOULDER R Computed R adiography 10/18/2024 3:22 PM CDT Narrative 10/18/2024 3:22 PM CDT For Patients: As a result of the Cures Act, medical imaging exams and procedure reports are released immediately into your electronic medical record. You may view this report before your referring provider. If you have questions, please contact your health care provider. INDICATION: Acute pain TECHNIQUE: Three views right shoulder FINDINGS/IMPRESSION: Normal alignment. No acute fracture or acute osseous abnormalities are visualized. Normal limits normal articulation glenohumeral joint AC joint within. No significant degenerative change. Dictated by Marta Jones MD @ 10/18/2024 3:22:21 PM (Electronically Signed) Procedure Note Marta Jones MD - 10/18/2024 For Patients: As a result of the s Act, medical imagingexams and procedure reports are released immediately into your electronicmedical record. You may view this report before your referring provider.If you have questions, please contact your health care provider. INDICATION: Acute pain TECHNIQUE: Three views right shoulder FINDINGS/IMPRESSION: Normal alignment. No acute fracture or acute osseous abnormalities arevisualized. Normal limits normal articulation glenohumeral joint AC jointwithin. No significant degenerative change. Dictated by Marta Jones MD @ 10/18/2024 3:22:21 PM (Electronically Signed) [facility] Final Result * EKG 12 LEAD (09/30/2024 3:08 PM CDT) Only the most recent of2 resultswithin the time period is included. Interpretation Sinus tachycardia Incomplete right bundle branch block Moderate voltage criteria for LVH, may be normal variant ( R in aVL , [place] product ) Prolonged QT Abnormal ECG When compared with ECG of 16-Aug-2024 14:55, Questionable change in QRS axis Ventricular Rate 104 BPM Atrial Rate 104 BPM P-R Interval 128 ms QRS Duration 98 ms QT 386 ms QTc 507 ms P Beason 42 degrees R Beason -11 degrees T Beason 66 degrees 09/30/2024 3:08 PM CDT 10/09/2024 3:21 PM CDT us Gold Silvestre MD, PhD EKG ORD Fin al Result * ECHO JIE WO CONTRAST W COLOR W LTD DOPPLER (09/24/2024 10:55 AM CDT) Only the most recent of2 resultswithin the time period is included. EJECTION FRACTION 55% Anatomical Region Laterality Modality Ultrasound 09/24/2024 10:0 9 AM CDT Narrative 09/24/2024 11:24 AM CDT TRANSESOPHAGEAL ECHOCARDIOGRAM DOMINIQUE FRAGA : 1980 44 years Study Date: 09/24/2024 10:09:28 AM Gender: F BP: 98/81 mmHg Height: 134.00 cm BSA: 1.43 m Weight: 60.00 kg Tech: [place] Referring MD: EMILEE WILKINS Site: [facility] Reading Location: [facility] Patient Location: Outpatient. Procedure: JIE, Color Doppler and Limited Spectral Doppler. Indication for study: Nonrheumatic tricuspid valve regurgitation; Nonrheumatic mitral valve regurgitation Cardiac Rhythm: Normal sinus.Study quality: Fair. Final Impressions: 1. Normal left ventricular size, normal global systolic function with an estimated EF of 55%. 2. Right ventricular cavity size is mildly enlarged, global systolic RV function is borderline reduced. 3. The mitral valve is thickened leaflets, mild to moderate mitral regurgitation. 4. Tricuspid valve is thickened, moderate-severe tricuspid regurgitation. 5. Not well visualized left atrial appendage. Comparison Compared to prior exam of 08/22/2024: - Mitral regurgitation has decreased. The irregular tissue noted in the LVOT (between the ventricular side of the anterior mitral leaflet and the ventricular septal patch) remains the same. The echolucency in the atrial side of the aortic root also remains the same. This overall argues against endocarditis as the etiology of these findings. Consider repeating the exam off of antibiotics if clinically warranted/appropriate. Procedure comments: Indications, goals, risks and alternatives of the procedure were discussed with the patient and informed consent was obtained. The patient received sedation of intravenous Propofol and general anesthesia. See procedural record for anesthesia details. Prior to performance of procedure, time out was called to accurately identify the patient and procedure. The Foxtrot probe was passed without difficulty. JIE, Color Doppler and Limited Spectral Doppler was performed. The patient developed no apparent complications during the procedure. Estimated Blood Loss: 0 ml Chamber Sizes and Function Normal left ventricular size, normal global systolic function with an estimated EF of 55%. No resting regional wall motion abnormality visualized. Left atrial size is normal. The left atrial appendage not well visualized. Not well visualized left atrial appendage flow velocities. Right ventricular cavity size is mildly enlarged, global systolic RV function is borderline reduced. The right atrium is normal. The pulmonary artery is not well visualized. The sinus of Valsalva is normal sized. The ascending aorta is normal sized. Aortic arch is not well visualized. Descending aorta is normal sized. Valves, RV Pressures and Diastolic Function The aortic valve is normal in structure and trileaflet, no stenosis and no regurgitation. The mitral valve is thickened leaflets, mild to moderate mitral regurgitation. The tricuspid valve is thickened, moderate-severe tricuspid regurgitation. The pulmonic valve is normal. No pulmonary regurgitation. Masses, Effusion, Shunts There is no pericardial effusion. Atrial septum is intact. Agitated saline injection not done. MEASUREMENTS AND CALCULATIONS 2-D Measurements and LV Function: Ao Sinus ULN 3.4 cm HR 107 bpm Asc Ao ULN 3.4 cm . This study was interpreted by an [facility] accredited facility. Final Procedure Note Trino Taylor MD - 09/24/2024 TRANSESOPHAGEAL ECHOCARDIOGRAM DOMINIQUE FRAGA : 1980 44 years Study Date: 09/24/2024 10:09:28 AM Gender: F BP: 98/81 mmHg Height: 134.00 cm BSA: 1.43 m Weight: 60.00 kg Tech: DAYTON Referring MD: EMILEE WILKINS Site: [facility] Reading Location: [facility] Patient Location: Outpatient. Procedure: JIE, Color Doppler and Limited Spectral Doppler. Indication for study: Nonrheumatic tricuspid valve regurgitation;Nonrheumatic mitral valve regurgitation Cardiac Rhythm: Normal sinus.Study quality: Fair. Final Impressions: 1. Normal left ventricular size, normal global systolic function with anestimated EF of 55%. 2. Right ventricular cavity size is mildly enlarged, global systolic RVfunction is borderline reduced. 3. The mitral valve is thickened leaflets, mild to moderate mitralregurgitation. 4. Tricuspid valve is thickened, moderate-severe tricuspidregurgitation. 5. Not well visualized left atrial appendage. Comparison Compared to prior exam of 08/22/2024: - Mitral regurgitation has decreased. The irregular tissue noted in theLVOT (between the ventricular side of the anterior mitral leaflet and theventricular septal patch) remains the same. The echolucency in the atrial side of theaortic root also remains the same. This overall argues against endocarditis asthe etiology of these findings. Consider repeating the exam off of antibioticsif clinically warranted/appropriate. Procedure comments: Indications, goals, risks and alternatives of theprocedure were discussed with the patient and informed consent wasobtained. The patient received sedation of intravenous Propofol andgeneral anesthesia. See procedural record for anesthesia details. Prior toperformance of procedure, time out was called to accurately identify thepatient and procedure. The Foxtrot probe was passed without difficulty.JIE, Color Doppler and Limited Spectral Doppler was performed. The patientdeveloped no apparent complications during the procedure. Estimated Blood Loss: 0 ml Chamber Sizes and Function Normal left ventricular size, normal global systolic function with anestimated EF of 55%. No resting regional wall motion abnormalityvisualized. Left atrial size is normal. The left atrial appendage not wellvisualized. Not well visualized left atrial appendage flow velocities.Right ventricular cavity size is mildly enlarged, global systolic RVfunction is borderline reduced. The right atrium is normal. The pulmonaryartery is not well visualized. The sinus of Valsalva is normal sized. Theascending aorta is normal sized. Aortic arch is not well visualized.Descending aorta is normal sized. Valves, RV Pressures and Diastolic Function The aortic valve is normal in structure and trileaflet, no stenosis and noregurgitation. The mitral valve is thickened leaflets, mild to moderatemitral regurgitation. The tricuspid valve is thickened, moderate-severetricuspid regurgitation. The pulmonic valve is normal. No pulmonaryregurgitation. Masses, Effusion, Shunts There is no pericardial effusion. Atrial septum is intact. Agitated salineinjection not done. MEASUREMENTS AND CALCULATIONS 2-D Measurements and LV Function: Ao Sinus ULN 3.4 cm HR 107 bpm Asc Ao ULN 3.4 cm . This study was interpreted by an [employer] accredited facility. Final Emilee Wilkins PA ECHO ORD Fin al Result * BUN (09/23/2024 10:21 AM CDT) Only the most recent of5 resultswithin the time period is included. UREA NITROGEN (BUN) 19 7 - 25 mg/dL [facility] Blood BLOOD SPECIMEN / Unknown 09/23/2024 10:21 AM CDT 09/23/2024 10:21 AM CDT Elenita Dumont MD CHEMISTRY Final Result Performing Organization Address City/[facility]/ZIP Co de Phone Number [facility] [address] [id number], [place] [id number] * (ABNORMAL) CREATININE (09/23/2024 10:21 AM CDT) Only the most recent of8 resultswithin the time period is included. CREATININE 1.04(H) 0.50 - 0.99 mg/dL [facility] EGFR 68 > OR = 60 mL/min/1.73 m2 [facility] Blood BLOOD SPECIMEN / Unknown 09/23/2024 10:21 AM CDT 09/23/2024 10:21 AM CDT Elenita Dumont MD CHEMISTRY Final Result [facility] [place] [address] [place] [address], [place] [phone] [facility] [address] [place] [address] * VANCOMYCIN TROUGH (09/23/2024 10:21 AM CDT) Only the most recent of7 resultswithin the time period is included. VANCOMYCIN, TROUGH ([facility]) 13.9 10.0 - 20.0 mg/L [facility] Comment: Vancomycin trough concentrations should be at least 10.0 mg/L. For invasive infections or when bacterial isolates exhibit vancomycin MICs between 1 and 2 mcg/mL, trough concentrations of 15.0 to 20.0 mg/L should be considered. When MICs are greater than or equal to 2 mcg/mL, alternate therapies should be considered. Your request to have a duplicate copy faxed has been acknowledged. Queued to: Blood BLOOD SPECIMEN / Unknown 09/23/2024 10:21 AM CDT 09/23/2024 10:21 AM CDT Elenita Dumont MD CHEMISTRY Final Result Performing Organization Address City/[facility]/ZIP Co de Phone Number [facility] [address] [address], [facility] [address] [place] [address] * C-REACTIVE PROTEIN (09/23/2024 10:21 AM CDT) Only the most recent of6 resultswithin the time period is included. C-REACTIVE PROTEIN (MG/L) 6.5 <8.0 mg/L [facility] Blood BLOOD SPECIMEN / Unknown 09/23/2024 10:21 AM CDT 09/23/2024 10:21 AM CDT Elenita Dumont MD CHEMISTRY Final Result [facility] [address] [place] [address], [facility] [address] [place] [address] * (ABNORMAL) CBC AND DIFFERENTIAL (09/23/2024 10:21 AM CDT) Only the most recent of4 resultswithin the time period is included. WHITE BLOOD CELL COUNT 9.0 3.8 - 10.8 Thousand/u L [facility] RED BLOOD CELL COUNT 3.84 3.80 - 5.10 Million/uL [facility] HEMOGLOBIN 12.3 11.7 - 15.5 g/dL [facility] HEMATOCRIT 37.7 35.0 - 45.0 % [facility] MCV 98.2 80.0 - 100.0 fL [facility] MCH 32.0 27.0 - 33.0 pg [facility] MCHC 32.6 32.0 - 36.0 g/dL [facility] Comment: For adults, a slight decrease in the calculated MCHC value (in the range of 30 to 32 g/dL) is most likely not clinically significant; however, it should be interpreted with caution in correlation with other red cell parameters and the patient's clinical condition. RDW 15.6(H) 11.0 - 15.0 % [facility] PLATELET COUNT 379 140 - 400 Thousand/u L [facility] MPV 10.7 7.5 - 12.5 fL [facility] ABSOLUTE NEUTROPHILS 5,256 1,500 - 7,800 cells/uL [facility] ABSOLUTE LYMPHOCYTES 2,628 850 - 3,900 cells/uL [facility] ABSOLUTE MONOCYTES 711 200 - 950 cells/uL [facility] ABSOLUTE EOSINOPHILS 243 15 - 500 cells/uL [facility] ABSOLUTE BASOPHILS 162 0 - 200 cells/uL [facility] NEUTROPHILS 58.4 % [facility] LYMPHOCYTES 29.2 % [facility] MONOCYTES 7.9 % [facility] EOSINOPHILS 2.7 % [facility] BASOPHILS 1.8 % [facility] Blood BLOOD SPECIMEN / Unknown 09/23/2024 10:21 AM CDT 09/23/2024 10:21 AM CDT us Elenita Dumont MD HEMATOLOGY Final Result [facility] [address] [place] [address], [place] [phone] [facility] [address] [place] [address] * SCAN-LABORATORY REPORT (09/16/2024 12:00 AM CDT) Only the most recent of3 resultswithin the time period is included. us Scanner OTHER Final Result * (ABNORMAL) CBC WITH AUTO DIFFERENTIAL (09/03/2024 10:36 AM CDT) WHITE BLOOD COUNT 7.4 4.5 - 11.0 thou/cu mm 09/03/2024 11:22 AM [facility] RED BLOOD COUNT 2.63(L) 4.00 - 5.20 mil/cu mm 09/03/2024 11:22 AM [facility] HEMOGLOBIN 10.2(L) 12.0 - 16.0 g/dL 09/03/2024 11:22 AM [facility] HEMATOCRIT 27.9(L) 33.0 - 51.0 % 09/03/2024 11:22 AM [facility] MCV 106(H) 80 - 100 fL 09/03/2024 11:22 AM [facility] MCH 38.8(H) 26.0 - 34.0 pg 09/03/2024 11:22 AM [facility] MCHC 36.6(H) 32.0 - 36.0 g/dL 09/03/2024 11:22 AM [facility] RDW 21.9(H) 11.5 - 15.5 % 09/03/2024 11:22 AM [facility] PLATELET COUNT 417 140 - 440 thou/cu mm 09/03/2024 11:22 AM [facility] MPV 11.0 6.5 - 11.0 fL 09/03/2024 11:22 AM [facility] % NEUT 58.1 % 09/03/2024 11:22 AM [facility] % LYMPH 28.7 % 09/03/2024 11:22 AM [facility] % MONO 9.4 % 09/03/2024 11:22 AM [facility] % EOS 3.3 % 09/03/2024 11:22 AM [facility] % BASO 0.5 % 09/03/2024 11:22 AM [facility] ABSOLUTE NEUTROPHILS 4.3 1.7 - 7.0 thou/cu mm 09/03/2024 11:22 AM [facility] ABSOLUTE LYMPHOCYTES 2.1 0.9 - 2.9 thou/cu mm 09/03/2024 11:22 AM [facility] ABSOLUTE MONOCYTES 0.7 <0.9 thou/cu mm 09/03/2024 11:22 AM [facility] ABSOLUTE EOSINOPHILS 0.2 <0.5 thou/cu mm 09/03/2024 11:22 AM [facility] ABSOLUTE BASOPHILS 0.0 <0.3 thou/cu mm 09/03/2024 11:22 AM [facility] Blood BLOOD SPECIMEN / Unknown Non-Lab Venipuncture / Unknown 09/03/2024 10:36 AM T 09/03/2024 11:18 AM [facility] LABORATORY - 09/03/2024 11:[address] [facility] fax results to Infectious Disease - [facility] at [phone] us Elenita Dumont MD HEMATOLOGY Final Result [facility] [address] [place] [address] * (ABNORMAL) POCT Urinalysis Dipstick Only [[id number]] (09/02/2024 4:06 PM CDT) PH 6.5 5.0 - 8.0 [facility] SPECIFIC GRAVITY 1.010 1.001 - 1.035 [facility] GLUCOSE NEGATIVE NEGATIVE [facility] BILIRUBIN NEGATIVE NEGATIVE [facility] KETONES NEGATIVE NEGATIVE [facility] OCCULT BLOOD NEGATIVE NEGATIVE [facility] PROTEIN NEGATIVE NEGATIVE [facility] NITRITE NEGATIVE NEGATIVE [facility] LEUKOCYTE ESTERASE TRACE(A) NEGATIVE [facility] Urine URINE SPECIMEN / Unknown 09/02/2024 4:06 PM CDT 09/02/2024 4:06 PM CDT us Anetai Jeni DO URINE Final Result [facility] [address] [place] [address], [facility] [address] [place] [address] * URINALYSIS MICROSCOPIC [81362.1] - STAT (09/02/2024 3:15 PM CDT) Only the most recent of3 resultswithin the time period is included. RBC 0-2 0-2, None Seen /HPF 09/03/2024 12:34 AM CDT [facility] WBC 0-2 0-2, 3-5, None Seen /HPF 09/03/2024 12:34 AM CDT [facility] BACTERIA None Seen None Seen, Rare, Few Bacteria/ HPF 09/03/2024 12:34 AM CDT [facility] EPITHELIAL CELLS None Seen None Seen, Few Epi/HPF 09/03/2024 12:34 AM CDT [facility] HYALINE CASTS 0-2 0-2, 3-5 /LPF 09/03/2024 12:34 AM CDT [facility] Urine URINE SPECIMEN / Unknown Non-Blood / Unknown 09/02/2024 3:15 PM CDT 09/02/2024 4:02 PM CDT [facility] DO URINE Final Result Performing Organization Address City/[facility]/ZIP Co de Phone Number [facility] [address] [place] [address], [place] * URINE CULTURE [[id number]] (09/02/2024 3:15 PM CDT) CULTURE No growth (<1,000 CFU/mL) 09/04/2024 8:21 AM CDT [facility] Urine URINE SPECIMEN / Unknown Non-Blood / Unknown 09/02/2024 3:15 PM CDT 09/02/2024 4:02 PM CDT Ezio Ngo DO MICROBIOLOGY Final Result Performing Organization Address City/[facility]/ZIP Co de Phone Number [facility] [address] [place] [address], [place] * SCAN-CARDIAC STRIP (08/30/2024 8:56 AM CDT) Scanner OTHER Final Result * (ABNORMAL) GLUCOSE METER (08/30/2024 7:21 AM CDT) Only the most recent of83 resultswithin the time period is included. GLUCOSE METER 147(H) 65 - 100 mg/dL 08/30/2024 7:22 AM CDT [facility] Blood BLOOD SPECIMEN / Unknown 08/30/2024 7:21 AM CDT 08/30/2024 7:22 AM CDT Sera ROWE CHEMISTRY Final Result [facility] [address] [place] [address], * SCAN-CARDIAC STRIP (08/29/2024 8:06 PM CDT) us Scanner OTHER Final Result * Insert PICC line (08/29/2024 5:41 PM CDT) Narrative Soheila Emanuel RN - 08/29/2024 5:41 PM CDT Soheila Emanuel RN 08/29/2024 5:46 PM PICC Line Insertion Note 08/29/2024 5:41 PM Procedure education reviewed: Questions answered, discussed with: Family face to face. Family face to face confirms understanding of procedure. Fire Equipment Operator used: No Reason for insertion: Home Care, IV access, IV antibiotics, and MD order Medical/ Surgical/ Allergies History reviewed: Yes. Preprocedure Verification: Yes 1) Provider Order verified 2) Patient identity verified; 3) side/site/procedure confirmed; 4) relevant information/documentation available, reviewed and properly matched to the patient; 5) For PICC insertions, consent accurate and complete or verified provider has ordered emergent placement; 6) equipment and supplies available Site Marking: Not Applicable Site marked if not in continuous attendance with the patient Time Out: Yes Time out was conducted just prior to starting procedure to verify the four required elements: 1) patient name and date of 2) confirmation that the correct side/site are marked if applicable, including visualization of the site francisco 3) name of procedure including laterality if applicable, and 4) essential imaging and results are properly labeled and appropriately displayed, if applicable. Site assessment pre-insertion: Intact.. Local anesthetic used at site: Yes, 1% Lidocaine. The following Central Line Insertion Checklist was used: Hand Hygiene: Yes Maximal Barrier Precautions including Sterile Gown, Hat and Mask: Yes Full Body Drape: Yes Site cleansed with: Chlorhexidine gluconate prep. PICC Line 1 Lumen Left;Upper Arm;Basilic PICC/SVC (Active) 08/29/24 1740 Left;Upper Arm;Basilic Vessel Diameter: 0.51 cm Rhyrsdmc-hj-Udju Ratio (%): Visible Catheter Length (cm): 1 cm Placed/Present Prior to Encounter: (IA) Placed Prior to Admission?: Type: Valved Catheter (IA) Size: Tip Location: PICC/SVC PICC Mid-Arm Circumference (cm): 31.5 cm Total Length of Catheter (cm): 34 cm Insertion Attempts: 1 (IA) Insertion Attempts: Local Anesthetic: Injectable Placement Verification: ECG;Blood Return Removed Catheter Length (cm): Removed/Resolved Prior to Encounter: Visible Catheter Length (cm) 1 cm 08/29/241740 Arm Circumference (cm) 31.5 cm 08/29/241740 Status Lumen One Blood Return;Capped/Locked 08/29/241740 Line Assessment Antimicrobial patch and dressing clean/dry/intact 08/29/241740 Site Description Dry/Flat 08/29/241740 Line Intervention New dressing applied and NO hemostatic agent/gauze 08/29/241740 Dressing change due date 09/05/2024 08/29/241740 Line Operating Table Assembler Name: Bard Line Type: Valved Power PICC Lot Number: [id number] Access Assistance:Modified Seldinger Technique (Micro-Introducer) WITHOUT Dermatotomy (skin sara), Ultrasound Guidance, and Tip confirmation system/ECG Post-insertion: Able to remove guidewire: Smoothly. Able to aspirate blood in each lumen: Yes Able to flush catheter without resistance in each lumen: Yes Each lumen flushed with: 20 ml(s) of 0.9% saline, and no Heparin. Cap applied to each lumen: Yes Line secured with: [facility] Hospital dressing policy/procedure followed. PICC Line standing orders implemented: Yes X- ray pending: No, tip confirmed with ECG Insertion complications: None Patient tolerated the procedure: Yes. Patient had been significantly sedated prior to procedure and 2 station RNs were at bedside to assist with holding arms and comforting patient. Patient needs longer after sedation meds are given than expected to have sedating effects. Future PICCs would benefit from being done in IR. PICC education reviewed: Given to family/authorized solar sales representative and assessor Soheila Emanuel RN .................... 08/29/2024 5:43 PM us Sera ROWE IV ORD Edited Result - Final * SCAN-CARDIAC STRIP (08/29/2024 4:10 PM CDT) us Scanner OTHER Final Result * SCAN-CARDIAC STRIP (08/28/2024 6:30 AM CDT) us Scanner OTHER Final Result * SCAN-CARDIAC STRIP (08/27/2024 7:36 AM CDT) us Scanner OTHER Final Result * SCAN-CARDIAC STRIP (08/27/2024 1:14 AM CDT) us Scanner OTHER Final Result * SCAN-CARDIAC STRIP (08/26/2024 7:46 AM CDT) us Scanner OTHER Final Result * SCAN-CARDIAC STRIP (08/25/2024 11:17 AM CDT) us Scanner OTHER Final Result * (ABNORMAL) CBC no diff AM (08/25/2024 6:57 AM CDT) Only the most recent of10 resultswithin the time period is included. WHITE BLOOD COUNT 9.1 4.5 - 11.0 thou/cu mm 08/25/2024 8:32 AM CDT [facility] RED BLOOD COUNT 3.30(L) 4.00 - 5.20 mil/cu mm 08/25/2024 8:32 AM CDT [facility] HEMOGLOBIN 10.3(L) 12.0 - 16.0 g/dL 08/25/2024 8:32 AM CDT [facility] HEMATOCRIT 32.3(L) 33.0 - 51.0 % 08/25/2024 8:32 AM CDT [facility] MCV 98 80 - 100 fL 08/25/2024 8:32 AM CDT [facility] MCH 31.2 26.0 - 34.0 pg 08/25/2024 8:32 AM CDT [facility] MCHC 31.9(L) 32.0 - 36.0 g/dL 08/25/2024 8:32 AM CDT [facility] LAB[facility] RDW 16.9(H) 11.5 - 15.5 % 08/25/2024 8:32 AM CDT [facility] PLATELET COUNT 307 140 - 440 thou/cu mm 08/25/2024 8:32 AM CDT [facility] MPV 12.6(H) 6.5 - 11.0 fL 08/25/2024 8:32 AM CDT [facility] NRBC 0.0 % 08/25/2024 8:32 AM CDT [facility] ABS NRBC 0.0 thou /cu mm 08/25/2024 8:32 AM CDT [facility] Blood BLOOD SPECIMEN / Unknown Non-Lab Venipuncture / Unknown 08/25/2024 6:57 AM CDT 08/25/2024 7:38 AM CDT [facility] LABORATORY - 08/25/2024 8:32 AM CDT Probable Cold Agglutinin present us Valentina Ramires MD HEMATOLOGY Final Resu lt [facility] [address] [place] [address], * (ABNORMAL) Hepatic function panel AM (08/25/2024 6:57 AM CDT) Only the most recent of4 resultswithin the time period is included. ALBUMIN 3.0(L) 4.0 - 4.9 g/dL 08/25/2024 8:06 AM CDT [facility] PROTEIN,TOTAL 6.0 6.0 - 8.0 g/dL 08/25/2024 8:06 AM CDT [facility] BILIRUBIN,TOTAL 0.3 0.0 - 1.2 mg/dL 08/25/2024 8:06 AM CDT [facility] BILIRUBIN,DIRECT 0.1 0.0 - 0.2 mg/dL 08/25/2024 8:06 AM CDT [facility] BILIRUBIN,INDIRE CT 0.2 0.2 - 0.8 mg/dL 08/25/2024 8:06 AM CDT [facility] ALK PHOSPHATASE 97 35 - 104 IU/L 08/25/2024 8:06 AM CDT [facility] ALT (SGPT) 40(H) 10 - 35 IU/L 08/25/2024 8:06 AM CDT [facility] AST (SGOT) 29 10 - 35 IU/L 08/25/2024 8:06 AM CDT [facility] Blood BLOOD SPECIMEN / Unknown Non-Lab Venipuncture / Unknown 08/25/2024 6:57 AM CDT 08/25/2024 7:38 AM CDT Valentina Ramires MD CHEMISTRY Final Resu lt [facility] [address] [place] [address], * (ABNORMAL) Basic metabolic panel AM (08/25/2024 6:57 AM CDT) Only the most recent of15 resultswithin the time period is included. SODIUM 142 136 - 145 mmol/L 08/25/2024 8:06 AM T [facility] POTASSIUM 3.5 3.5 - 5.1 mmol/L 08/25/2024 8:06 AM T [facility] CHLORIDE 107 98 - 107 mmol/L 08/25/2024 8:06 AM T [facility] CO2,TOTAL 21(L) 22 - 29 mmol/L 08/25/2024 8:06 AM T [facility] ANION GAP 14 5 - 18 08/25/2024 8:06 AM T [facility] GLUCOSE 89 70 - 99 mg/dL 08/25/2024 8:06 AM CDT [facility] CALCIUM 8.9 8.8 - 10.4 mg/dL 08/25/2024 8:06 AM T [facility] Comment: Reference ranges for this test were updated on 12/19/2023 to reflect our healthy population more accurately. Reference range changes are not retroactively applied to results, but previous results using the same methodology can be interpreted in the context of the new reference range. BUN 33(H) 6 - 20 mg/dL 08/25/2024 8:06 AM CDT [facility] CREATININE 1.12(H) 0.50 - 0.90 mg/dL 08/25/2024 8:06 AM T [facility] BUN/CREAT RATIO 29(H) 10 - 20 8:06 AM T [facility] eGFR 63(L) >90 mL/min/1. 73m2 08/25/2024 8:06 AM T [facility] Comment:As of 2021, eG FR is calculated by the CKD-EPI creatinine equation without race adjustment. eGFR can be influenced by muscle mass, exercise, and diet. The reported eGFR is an estimation only and is only applicable if the renal function is stable. Blood BLOOD SPECIMEN / Unknown Non-Lab Venipuncture / Unknown 08/25/2024 6:57 AM CDT 08/25/2024 7:38 AM CDT Valentina Ramires MD CHEMISTRY Final Resu lt [facility] [address] [place] [address], * POTASSIUM (08/24/2024 11:28 PM CDT) Only the most recent of26 resultswithin the time period is included. POTASSIUM 3.6 3.5 - 5.1 mmol/L 08/25/2024 12:12 AM CDT [facility] Blood BLOOD SPECIMEN / Unknown Butterfly / Unknown 08/24/2024 11:28 PM CDT 08/24/2024 11:45 PM CDT us Valentina Ramires MD CHEMISTRY Final Resu lt [facility] [address] [place] [address], [place] * (ABNORMAL) Urinalysis TODAY (08/24/2024 12:12 PM CDT) Only the most recent of2 resultswithin the time period is included. COLOR Yellow Yellow Color 08/24/2024 12:31 PM CDT [facility] LAB[facility] CLARITY Clear Clear Clarity 08/24/2024 12:31 PM CDT [facility] SPECIFIC GRAVITY,URINE 1.015 1.010, 1.015, 1.020, 1.025 08/24/2024 12:31 PM CDT [facility] LAB[facility] PH,URINE 5.0(A) 6.0, 7.0, 8.0, 5.5, 6.5, 7.5, 8.5 08/24/2024 12:31 PM CDT [facility] UROBILINOGEN, QUALITATIVE Normal Normal EU/dl 08/24/2024 12:31 PM CDT [facility] PROTEIN, URINE Negative Negative mg/dL 08/24/2024 12:31 PM CDT [facility] GLUCOSE, URINE Negative Negative mg/dL 08/24/2024 12:31 PM CDT [facility] KETONES,URINE Negative Negative mg/dL 08/24/2024 12:31 PM CDT [facility] BILIRUBIN,URI NE Negative Negative 08/24/2024 12:31 PM CDT [facility] OCCULT BLOOD,URINE Negative Negative 08/24/2024 12:31 PM CDT [facility] NITRITE Negative Negative 08/24/2024 12:31 PM CDT [facility] LEUKOCYTE ESTERASE Trace(A) Negative 08/24/2024 12:31 PM CDT [facility] Urine URINE SPECIMEN / Unknown Non-Blood / Unknown 08/24/2024 12:12 PM CDT 08/24/2024 12:20 PM CDT Valentina Ramires MD URINE Final Resu lt Performing Organization Address City/[facility]/ZIP Co de Phone Number [facility] [address] [place] [address], * SCAN-CARDIAC STRIP (08/23/2024 11:52 PM CDT) Scanner OTHER Final Result * SODIUM (08/23/2024 11:49 AM CDT) Only the most recent of4 resultswithin the time period is included. SODIUM 138 136 - 145 mmol/L 08/23/2024 12:29 PM CDT [facility] Blood BLOOD SPECIMEN / Unknown Venipuncture / Unknown 08/23/2024 11:49 AM CDT 08/23/2024 11:56 AM CDT Mickey Oseguera MD CHEMISTRY Naomy l Result Performing Organization Address [facility] Co de Phone Number [facility] [address] [place] [address], * MAGNESIUM (08/23/2024 11:49 AM CDT) Only the most recent of13 resultswithin the time period is included. MAGNESIUM 2.2 1.6 - 2.6 mg/dL 08/23/2024 12:29 PM CDT [facility] Blood BLOOD SPECIMEN / Unknown Venipuncture / Unknown 08/23/2024 11:49 AM CDT 08/23/2024 11:56 AM CDT Mickey Oseguera MD CHEMISTRY Naomy l Result Performing Organization Address City/[facility]/ZIP Co de Phone Number [facility] [address] [place] [address], * (ABNORMAL) Lipase FOR ADD ON (08/23/2024 11:49 AM CDT) [facility] LIPASE 98.7(H) 13.0 - 60.0 IU/L 08/23/2024 1:38 PM CDT [facility] Blood BLOOD SPECIMEN / Unknown Venipuncture / Unknown 08/23/2024 11:49 AM CDT 08/23/2024 11:56 AM CDT us Mickey Oseguera MD CHEMISTRY Naomy l Result [facility] [address] [place] [address], * SCAN-CARDIAC STRIP (08/23/2024 5:05 AM CDT) us Scanner OTHER Final Result * TYPE & SCREEN (08/22/2024 5:34 PM CDT) [facility] ABORH B Rh Positive 08/22/2024 6:38 PM CDT [facility] ANTIBODY SCREEN Negative Negative 08/22/2024 6:38 PM CDT [facility] SPECIMEN EXPIRATION DATE/TIME 08/25/24 23:59 08/22/2024 6:38 PM CDT [facility] Blood BLOOD SPECIMEN / Unknown Butterfly / Unknown 08/22/2024 5:34 PM CDT 08/22/2024 5:43 PM CDT us Wendy CARLTON BLOOD BANK Final Res ult [facility] [address] [place] [address], * ECHO TTE LIMITED WO CONTRAST W COLOR W LTD DOPPLER (08/22/2024 12:46 PM CDT) [facility] AORTIC VALVE MEAN PG 8 mmHg PEAK TR VELOCITY 3.0 m/s LVEDD 2.8 cm EJECTION FRACTION 55% Anatomical Region Laterality Modality Ultrasound 08/22/2024 1:54 PM CDT Narrative 08/22/2024 7:15 PM CDT ECHOCARDIOGRAM DOMINIQUE FRAGA : 1980 43 years Study Date: 08/22/2024 1:54:22 PM Gender: F BP: 108/69 mmHg Height: 135.00 cm BSA: 1.42 m Weight: 59.00 kg Tech: [facility] [place] Referring MD: EMILEE WILKINS Site: [facility] Reading Location: [facility] Procedure: Limited 2D , Color Doppler and Limited Spectral Doppler. Indication for study: AV Canal, PDA closure Cardiac Rhythm: Normal sinus.Study quality: Good. Other prior studies: Final Impressions: Limited Echocardiogram performed 1. Status post AV canal repair and PDA closure. 2. LVEF 55%. Normal LV size. 3. Mildly dilated RV with preserved global function. 4. Doft-wm-nggnklae TR [right AV valve]. Mean gradient not assessed. 5. Trace MR [left AV valve]. MG 7 mmHg, HR 113 bpm. 6. No residual PDA on limited basal SAX and suprasternal views. 7. No atrial level shunt. 8. 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 9. PASP 40 mmHg, mean RAP 3 mmHg included. Chamber Sizes and Function Indeterminate pattern of LV diastolic filling. Left atrial size is normal. Left atrial pressure is normal. Right ventricular cavity size is mildly enlarged, global systolic RV function is normal. The right atrium is normal. The pulmonary artery is not well visualized. The sinue of Valsalva is not evaluated. The ascending aorta is not evaluated. Valves, RV Pressures and Diastolic Function The aortic valve is not well visualized , no stenosis and trivial regurgitation. The tricuspid valve is a right sided AV valve, mild-moderate regurgitation. The tricuspid regurgitant velocity is 3.0 m/s, the estimated right ventricular systolic pressure is 36 mmHg plus right atrial pressure. There is mildly increased estimated pulmonary pressure by tricuspid regurgitation velocity and right atrial pressure. The pulmonic valve is The pulmonic valve is not well visualized, trace regurgitation. Masses, Effusion, Shunts There is no pericardial effusion. The inferior vena cava is normal sized, respiratory size variation greater than 50%. No left to right shunting was detected by limited color flow Doppler interrogation of the interatrial septum. MEASUREMENTS AND CALCULATIONS 2-D Measurements and LV Function: LVID (d) 2.8 cm LV FS% (2D) 32 % LVID (s) 1.9 cm LVOT diameter 1.7 cm IVS (d) 1.0 cm HR 112 bpm LVPW (d) 1.2 cm Aortic Valve: Vmax 1.9 m/s GRIFFIN (V) 1.73 cm VTI 0.25 m GRIFFIN (I) 1.51 cm LVOT V max 1.5 m/s Max PG 15 mmHg LVOT VTI 0.17 m Mean PG 8 mmHg SV 38 ml Dim Index 0.67 SV index 27 ml/m CO 4.3 l/min CI 3.0 l/min/m Mitral Valve: MV Mean G 7 mmHg . This study was interpreted by an [facility] accredited facility. Final (Updated) Procedure Note Maximino Strong MD - 08/23/2024 ECHOCARDIOGRAM DOMINIQUE FRAGA : 1980 43 years Study Date: 08/22/2024 1:54:22 PM Gender: F BP: 108/69 mmHg Height: 135.00 cm BSA: 1.42 m Weight: 59.00 kg Tech: [facility] [place] Referring MD: EMILEE WILKINS Site: [facility] Reading Location: [facility] Procedure: Limited 2D , Color Doppler and Limited Spectral Doppler. Indication for study: AV Canal, PDA closure Cardiac Rhythm: Normal sinus.Study quality: Good. Other prior studies: Final Impressions: Limited Echocardiogram performed 1. Status post AV canal repair and PDA closure. 2. LVEF 55%. Normal LV size. 3. Mildly dilated RV with preserved global function. 4. Wyob-dm-lwtffmju TR [right AV valve]. Mean gradient not assessed. 5. Trace MR [left AV valve]. MG 7 mmHg, HR 113 bpm. 6. No residual PDA on limited basal SAX and suprasternal views. 7. No atrial level shunt. 8. 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 9. PASP 40 mmHg, mean RAP 3 mmHg included. Chamber Sizes and Function Indeterminate pattern of LV diastolic filling. Left atrial size is normal. Left atrial pressure is normal. Rightventricular cavity size is mildly enlarged, global systolic RV function isnormal. The right atrium is normal. The pulmonary artery is not wellvisualized. The sinue of Valsalva is not evaluated. The ascending aorta isnot evaluated. Valves, RV Pressures and Diastolic Function The aortic valve is not well visualized , no stenosis and trivialregurgitation. The tricuspid valve is a right sided AV valve,mild-moderate regurgitation. The tricuspid regurgitant velocity is 3.0m/s, the estimated right ventricular systolic pressure is 36 mmHg plusright atrial pressure. There is mildly increased estimated pulmonarypressure by tricuspid regurgitation velocity and right atrial pressure.The pulmonic valve is The pulmonic valve is not well visualized, traceregurgitation. Masses, Effusion, Shunts There is no pericardial effusion. The inferior vena cava is normal sized,respiratory size variation greater than 50%. No left to right shunting wasdetected by limited color flow Doppler interrogation of the interatrialseptum. MEASUREMENTS AND CALCULATIONS 2-D Measurements and LV Function: LVID (d) 2.8 cm LV FS% (2D) 32 % LVID (s) 1.9 cm LVOT diameter 1.7 cm IVS (d) 1.0 cm HR 112 bpm LVPW (d) 1.2 cm Aortic Valve: Vmax 1.9 m/s GRIFFIN (V) 1.73 cm VTI 0.25 m GRIFFIN (I) 1.51 cm LVOT V max 1.5 m/s Max PG 15 mmHg LVOT VTI 0.17 m Mean PG 8 mmHg SV 38 ml Dim Index 0.67 SV index 27 ml/m CO 4.3 l/min CI 3.0 l/min/m Mitral Valve: MV Mean G 7 mmHg . This study was interpreted by an [facility] accredited facility. Final (Updated) Emilee CARLTON ECHO ORD Shravan elyse Result - Final * SCAN-CARDIAC STRIP (08/22/2024 1:01 AM CDT) us Scanner OTHER Final Result * SCAN-CARDIAC STRIP (08/21/2024 9:08 PM CDT) us Scanner OTHER Final Result * XR VIDEO SWALLOW AND TREATMENT W SPEECH (08/21/2024 1:28 PM CDT) Anatomical Region Laterality Modality Esophagus Digital Radiogra phy Impressions 08/21/2024 2:03 PM CDT Normal swallowing mechanics were recorded, no aspiration. Some mild esophageal stasis was also noted at the end of the procedure which could suggest esophageal dysmotility. Please see the speech pathology report. Narrative 08/21/2024 2:03 PM CDT INDICATION Dysphagia TECHNIQUE Recorded video swallow with speech pathology. Fluoroscopy time: 1 minute 36 seconds. Fransisca Astorga TESTER WAFER SUBSTRATE FLUOROSCOPY Final Result * PET CT CARDIAC LIMITED (08/20/2024 11:30 AM CDT) Anatomical Region Laterality Modality Positron Emissio n Tomography (PET) 08/20/2024 1:25 PM CDT Narrative 08/20/2024 1:25 PM CDT For Patients: As a result of the Century Cures Act, medical imaging exams and procedure reports are released immediately into your electronic medical record. You may view this report before your referring provider. If you have questions, please contact your health care provider. INDICATION: 43 year-old female. History of Down`s syndrome. Remote history of cardiac valve surgery. History of moderate to severe mitral and tricuspid regurgitation. A recent transesophageal echo and a CT cardiac study and both suggested possible vegetations at the site of a prior ventricular septal defect repair with potential involvement of the anterior mitral valve leaflet. Limited cardiac PET/CT scan for evaluation of endocarditis. 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 TECHNIQUE: 7.55 mCi 18 FDG (18 zdohqd-ko-hzn-glucose) injected intravenously. Imaging performed from the thoracic inlet to the adrenal glands [address] performed for anatomic correlation and attenuation correction. Pre scan glucose: Elevated at 157 mg/dL. COMPARISON: None. FINDINGS: Physiologic activity is identified in the myocardium, GI, and tract. There is a large amount of activity within the soft tissues of the right forearm/antecubital fossa related to infiltration of radiotracer near the patient`s IV site which may degrade image quality (large amount tracer activity not contributing to imaging). Repeat imaging may be required based on clinical suspicion. There is no focal or diffuse increased metabolic activity within or along the cardiac structures. Specifically there is no PET/CT scan evidence for infected cardiac valves or myocarditis. There is an irregular patchy infiltrate within the left lower lobe of the lung with SUV max of 4.3 presumably infectious or inflammatory in nature. There is minor low level activity associated with atelectatic lung at the right lung base with some ground-glass opacities within SUV max of 2.5. This could also be infectious or inflammatory versus atelectatic in nature. No metabolically active hilar/mediastinal or retrocrural lymphadenopathy. The breasts are within normal limits. The included skeleton is within normal limits. CT Findings: Right IJ line with its tip in the upper superior vena cava. Enteric tube with its tip not included on this limited study but clearly traversing the GE junction. Postsurgical change from a sternotomy. Patchy bilateral lower lobe infiltrates left slightly greater than right. Increased soft tissue attenuation in the right antecubital fossa/right upper extremity soft tissues related to the infiltration of the radiotracer at the injection site. IMPRESSION : 1. No PET/CT scan evidence for endocarditis/myocarditis. 2. Patchy infiltrates within both lower lobes of the lungs left greater than right likely infectious or inflammatory in nature. Dictated by Drake Lagos MD @ 08/20/2024 1:25:31 PM (Electronically Signed) Procedure Note Drake Lagos MD - 08/20/2024 For Patients: As a result of the 21st Century Cures Act, medical imagingexams and procedure reports are released immediately into your electronicmedical record. You may view this report before your referring provider.If you have questions, please contact your health care provider. INDICATION: 43 year-old female. History of Down`s syndrome. Remote history of cardiacvalve surgery. History of moderate to severe mitral and tricuspidregurgitation. A recent transesophageal echo and a CT cardiac study and both suggestedpossible vegetations at the site of a prior ventricular septal defectrepair with potential involvement of the anterior mitral valve leaflet. Limited cardiac PET/CT scan for evaluation of endocarditis. 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 TECHNIQUE: 7.55 mCi 18 FDG (18 rmcgqs-cc-fah-glucose) injected intravenously. Imaging performed from the thoracic inlet to the adrenal glands [address] performed for anatomic correlation and attenuation correction. Pre scanglucose: Elevated at 157 mg/dL. COMPARISON: None. FINDINGS: Physiologic activity is identified in the myocardium, GI, and tract. There is a large amount of activity within the soft tissues of the rightforearm/antecubital fossa related to infiltration of radiotracer near thepatient`s IV site which may degrade image quality (large amount traceractivity not contributing to imaging). Repeat imaging may be required based on clinical suspicion. There is no focal or diffuse increased metabolic activity within or alongthe cardiac structures. Specifically there is no PET/CT scan evidence forinfected cardiac valves or myocarditis. There is an irregular patchy infiltrate within the left lower lobe of thelung with SUV max of 4.3 presumably infectious or inflammatory in nature. There is minor low level activity associated with atelectatic lung at theright lung base with some ground-glass opacities within SUV max of 2.5. This could also be infectious or inflammatory versus atelectatic innature. No metabolically active hilar/mediastinal or retrocrurallymphadenopathy. The breasts are within normal limits. The included skeleton is within normal limits. CT Findings: Right IJ line with its tip in the upper superior vena cava.Enteric tube with its tip not included on this limited study but clearlytraversing the GE junction. Postsurgical change from a sternotomy. Patchy bilateral lower lobeinfiltrates left slightly greater than right. Increased soft tissue attenuation in the right antecubital fossa/rightupper extremity soft tissues related to the infiltration of theradiotracer at the injection site. IMPRESSION : 1. No PET/CT scan evidence for endocarditis/myocarditis. 2. Patchy infiltrates within both lower lobes of the lungs left greaterthan right likely infectious or inflammatory in nature. Dictated by Drake Lagos MD @ 08/20/2024 1:25:31 PM (Electronically Signed) us Brian CARLTON PET Final R esult * [place] [place] MISCELLANEOUS SENDOUT (08/20/2024 5:58 AM CDT) Only the most recent of2 resultswithin the time period is included. Pathologist [facility] Miscellaneous Sendout SEE COMMENTS 08/22/2024 12:39 AM CDT [facility] Comment: Test Result Flag Unit RefValue Tropheryma whipplei PCR, B Specimen Source BLOOD Tropheryma whipplei PCR, B, Negative Result -- REFERENCE VALUE -- Not Applicable This test was developed and its performance characteristics determined by [facility] in a manner consistent with CLIA requirements. This test has not been cleared or approved by the U.S. Food and Drug Administration. Test Performed by: [address] [address] [place] Operator: Shaista Hardy Ph.D.; CLIA# [id number] Other BLOOD SPECIMEN / Unknown Non-Blood / Unknown 08/20/2024 5:58 AM CDT 08/20/2024 6:11 AM CDT Elenita Dumont MD LABORATORY Final Result [address] [address], * MISCELLANEOUS SEND OUT (08/20/2024 5:58 AM CDT) Only the most recent of2 resultswithin the time period is included. Pathologist [facility] TEST NAME Tropheryma whipplei, molecular detection, PCR, blood 08/20/2024 6:42 AM CDT [facility] SOURCE edta whole blood 08/21/19 6:42 AM CDT [facility] PERFORMING LAB [place] 08/20/2024 6:42 AM CDT [facility] REFERRAL LAB TEST # [id number] 08/20/2024 6:42 AM CDT [facility] IS THIS A [facility] TEST? No 08/20/2024 6:42 AM CDT [facility] Is this a [facility] Test? Yes, See [facility] Miscellaneous Sendout result 08/20/2024 6:42 AM CDT [facility] Other BLOOD SPECIMEN / Unknown Non-Blood / Unknown 08/20/2024 5:58 AM CDT 08/20/2024 6:11 AM CDT us Elenita Dumont MD SEND OUTS Final Result [facility] [address] [place] [address], [place] * XR CHEST 1 VIEW PORTABLE (08/20/2024 5:18 AM CDT) Only the most recent of8 resultswithin the time period is included. Anatomical Region Laterality Modality HEART, THORAX, CHEST Digital Rad iography 08/20/2024 6:41 AM CDT Impressions 08/20/2024 6:41 AM CDT 1. Heart size normal. Sternotomy. 2. Right IJ catheter are normally located. Enteric tube last seen in left upper quadrant, terminating below the bottom margin of the image. 3. Improved appearance of the lungs without definite acute focal finding on either side. 4. No pleural effusion or pneumothorax. Dictated by Duke Mcclure MD @ Aug 20 2024 6:41AM (Electronically Signed) [email or web address] Narrative 08/20/2024 6:41 AM CDT For Patients: As a result of the 21st Century Cures Act, medical imaging exams and procedure reports are released immediately into your electronic medical record. You may view this report before your referring provider. If you have questions, please contact your health care provider. INDICATION: Evaluate lung infiltrate COMPARISON: August 18, 2024 at 07:44 TECHNIQUE: A single view study was obtained as a portable CXR, August 20, 2024 at 05:11 FINDINGS: As discussed below Procedure Note Duke Mcclure MD - 08/20/2024 For Patients: As a result of the Century Cures Act, medical imagingexams and procedure reports are released immediately into your electronicmedical record. You may view this report before your referring provider.If you have questions, please contact your health care provider. INDICATION: Evaluate lung infiltrate COMPARISON: August 18, 2024 at 07:44 TECHNIQUE: A single view study was obtained as a portable CXR, August 20, 2024 at05:11 FINDINGS: As discussed below IMPRESSION: 1. Heart size normal. Sternotomy. 2. Right IJ catheter are normally located. Enteric tube last seen in leftupper quadrant, terminating below the bottom margin of the image. 3. Improved appearance of the lungs without definite acute focal findingon either side. 4. No pleural effusion or pneumothorax. Dictated by Duke Mcclure MD @ Aug 20 2024 6:41AM (Electronically Signed) [email or web address] us Sergo Seymour MD GENERAL IMAGING Final R esult * SCAN-CARDIAC STRIP (08/19/2024 8:56 PM CDT) us Scanner OTHER Final Result * SCAN-CARDIAC STRIP (08/19/2024 10:30 AM CDT) us Scanner OTHER Final Result * (ABNORMAL) TRIGLYCERIDES propofol (08/19/2024 3:37 AM CDT) Only the most recent of3 resultswithin the time period is included. TRIGLYCERIDES 400(H) <150 mg/dL 08/19/2024 4:19 AM CDT [facility] PROVIDER ORDERED STATUS RANDOM 08/19/2024 4:19 AM CDT [facility] Blood BLOOD SPECIMEN / Unknown Non-Lab Venipuncture / Unknown 08/19/2024 3:37 AM CDT 08/19/2024 3:51 AM CDT us Elenita Divya Reza MD CHEMISTRY [facility] Result Performing Organization Address City/[facility]/ZIP Co de Phone Number [facility] [address] [place] [address], * CK TOTAL propofol (08/19/2024 3:37 AM CDT) Only the most recent of3 resultswithin the time period is included. CK,TOTAL 53 26 - 192 IU/L 08/19/2024 4:19 AM CDT [facility] Blood BLOOD SPECIMEN / Unknown Non-Lab Venipuncture / Unknown 08/19/2024 3:37 AM CDT 08/19/2024 3:51 AM CDT Elenita Cobb MD CHEMISTRY [facility] Result Performing Organization Address [facility] de Phone Number [facility] [address] [place] [address], * CALCIUM IONIZED HOSPITAL DRAW ONLY (08/19/2024 1:59 AM CDT) Only the most recent of8 resultswithin the time period is included. CALCIUM,IONIZE D 1.22 1.15 - 1.27 mmol/L 08/19/2024 2:31 AM CDT [facility] Blood BLOOD SPECIMEN / Unknown Non-Lab Venipuncture / Unknown 08/19/2024 1:59 AM CDT 08/19/2024 2:28 AM CDT Tung Cage MD CHEMISTRY Final Resu lt Performing Organization Address [facility] Co de Phone Number [facility] [address] [place] [address], * SCAN-CARDIAC STRIP (08/18/2024 7:00 AM CDT) Scanner OTHER Final Result * (ABNORMAL) ARTERIAL BLOOD GAS (08/18/2024 5:22 AM CDT) Only the most recent of11 resultswithin the time period is included. PH, ARTERIAL 7.46(H) 7.35 - 7.45 08/18/2024 5:45 AM CDT [facility] PCO2, ARTERIAL 50(H) 32 - 45 mmHg 08/18/2024 5:45 AM CDT [facility] PO2, ARTERIAL 103 83 - 108 mmHg 08/18/2024 5:45 AM T [facility] HCO3, ARTERIAL 36(H) 21 - 28 mmol/L 08/18/2024 5:45 AM CDT [facility] BASE EXCESS, ARTERIAL 10.1(H) -2.0 - 3.0 08/18/2024 5:45 AM T [facility] O2 SATURATION, ARTERIAL 99(H) 94 - 98 % 08/18/2024 5:45 AM CDT [facility] INSPIRED O2 08/18/2024 5:45 AM T [facility] Comment:Unit of Measure: Lit ers (L) if <=20; Percent (%) if >20 PATIENT TEMPERATURE 37.0 Degrees C 08/18/2024 5:45 AM T [facility] Blood ARTERIAL BLOOD SPECIMEN / Unknown Non-Lab Venipuncture / Unknown 08/18/2024 5:22 AM CDT 08/18/2024 5:40 AM CDT Sergo Dukes MD CHEMISTRY Final Result [facility] [address] [place] [address], * O2 SATURATION,MEASURED (08/18/2024 5:22 AM CDT) Only the most recent of8 resultswithin the time period is included. O2 SATURATION,TIMI SURED 69 % 08/18/2024 5:44 AM CDT [facility] HEMOGLOBIN,BLO OD GAS 12.5 12.0 - 16.0 g/dL 08/18/2024 5:44 AM CDT [facility] SOURCE, O2M Venous 08/18/2024 5:44 AM CDT [facility] Blood BLOOD SPECIMEN / Unknown Non-Lab Venipuncture / Unknown 08/18/2024 5:22 AM CDT 08/18/2024 5:40 AM CDT Narrative [facility] - 08/18/2024 5:44 AM CDT Reference Range for: Arterial Source (94-98) Non-Arterial Source (70-75) Sergo Dukes MD CHEMISTRY Final Result Performing Organization Address City/[facility]/ZIP Co de Phone Number [facility] [address] [place] [address], * PLATELET ESTIMATE (08/18/2024 3:58 AM CDT) PLATELET ESTIMATE Adequate Adequate, No estimate 08/18/2024 4:51 AM CDT [facility] Blood BLOOD SPECIMEN / Unknown Non-Lab Venipuncture / Unknown 08/18/2024 3:58 AM CDT 08/18/2024 3:58 AM CDT Sergo Dukes MD HEMATOLOGY Final Result Performing Organization Address City/[facility]/ZIP Co de Phone Number [facility] [address] [place] [address], * SCAN-CARDIAC STRIP (08/17/2024 12:17 AM CDT) Scanner OTHER Final Result * VANCOMYCIN (08/16/2024 1:40 PM CDT) VANCOMYCIN 10.1 ug/mL 08/16/2024 2:54 PM CDT [facility] Comment:No Reference Range D efined. DATE OF LAST DOSE,RANDOM Not given 08/16/2024 2:54 PM CDT [facility] TIME OF LAST DOSE,RANDOM Not given 08/16/2024 2:54 PM CDT [facility] Blood BLOOD SPECIMEN / Unknown Non-Lab Venipuncture / Unknown 08/16/2024 1:40 PM CDT 08/16/2024 1:50 PM CDT Tung Cage MD CHEMISTRY Final Resu lt Performing Organization Address [facility]/ZIP Co de Phone Number [facility] [address] [place] [address], [place] * (ABNORMAL) ALT (SGPT) (08/16/2024 4:49 AM CDT) ALT (SGPT) 119(H) 10 - 35 IU/L 08/16/2024 5:25 AM CDT [facility] Blood BLOOD SPECIMEN / Unknown Non-Lab Venipuncture / Unknown 08/16/2024 4:49 AM CDT 08/16/2024 4:58 AM CDT Mateus Wei MD CHEMISTRY Final Res ult Performing Organization Address [facility] Co de Phone Number [facility] [address] [place] [address], [place] * (ABNORMAL) AST (SGOT) (08/16/2024 4:49 AM CDT) AST (SGOT) 93(H) 10 - 35 IU/L 08/16/2024 5:25 AM CDT [facility] Blood BLOOD SPECIMEN / Unknown Non-Lab Venipuncture / Unknown 08/16/2024 4:49 AM CDT 08/16/2024 4:58 AM CDT Mateus Wei MD CHEMISTRY Final Res ult Performing Organization Address [facility]/ZIP Co de Phone Number [facility] [address] [place] [id number], [place] * (ABNORMAL) BILIRUBIN DIRECT (08/16/2024 4:49 AM CDT) BILIRUBIN,DIRE CT 0.4(H) 0.0 - 0.2 mg/dL 08/16/2024 5:25 AM CDT [facility] Blood BLOOD SPECIMEN / Unknown Non-Lab Venipuncture / Unknown 08/16/2024 4:49 AM CDT 08/16/2024 4:58 AM CDT Mateus Wei MD CHEMISTRY Final Res ult [facility] [address] [place] [id number], [place] * (ABNORMAL) WBC AM (08/16/2024 4:44 AM CDT) Only the most recent of4 resultswithin the time period is included. WHITE BLOOD COUNT 15.0(H) 4.5 - 11.0 thou/cu mm 08/16/2024 5:02 AM CDT [facility] NRBC 0.1 % 08/16/2024 5:02 AM CDT [facility] ABS NRBC 0.0 thou /cu mm 08/16/2024 5:02 AM CDT [facility] Blood BLOOD SPECIMEN / Unknown Non-Lab Venipuncture / Unknown 08/16/2024 4:44 AM CDT 08/16/2024 4:58 AM CDT Cuong Zapata MD HEMATOLOGY Final Result Performing Organization Address City/[facility]/ZIP Co de Phone Number [facility] [address] [place] [id number], [place] * (ABNORMAL) Hemoglobin AM (08/16/2024 4:44 AM CDT) HEMOGLOBIN 10.5(L) 12.0 - 16.0 g/dL 08/16/2024 5:02 AM CDT [facility] MCV 102(H) 80 - 100 fL 08/16/2024 5:02 AM CDT [facility] Blood BLOOD SPECIMEN / Unknown Non-Lab Venipuncture / Unknown 08/16/2024 4:44 AM CDT 08/16/2024 4:58 AM CDT us Cuong Zapata MD HEMATOLOGY Final Result [facility] [address] [place] [address], [place] * SCAN-RADIOLOGY REPORT (08/16/2024 12:00 AM CDT) Only the most recent of2 resultswithin the time period is included. Anatomical Region Laterality Modality Other Narrative 08/16/2024 12:00 AM CDT Ordered by an unspecified provider. us Other Clinical Staff OTHER Final Resul t * XR ABDOMEN 1 VIEW PORTABLE (08/15/2024 9:32 PM CDT) Anatomical Region Laterality Modality Abdomen Digital Radiogra phy 08/16/2024 6:43 AM CDT Impressions 08/16/2024 6:43 AM CDT The enteric tube is in good position. The stomach appears to be at least moderately distended. Dictated by Radha Meraz MD @ Aug 16 2024 6:43AM (Electronically Signed) [email or web address] Narrative 08/16/2024 6:43 AM CDT For Patients: As a result of the Cures Act, medical imaging exams and procedure reports are released immediately into your electronic medical record. You may view this report before your referring provider. If you have questions, please contact your health care provider. INDICATION: Tube placement COMPARISON: None TECHNIQUE: 1 view abdomen, supine. FINDINGS: Devices: Enteric tube distal tip is in the central lower abdomen, within the distended stomach. Mild stool. No dilated bowel. No unusual mass effect. Endotracheal tube and right IJ central line partially seen. There are some patchy peribronchovascular opacities in the left lower lobe. Procedure Note Radha Meraz MD - 08/16/2024 For Patients: As a result of the Cures Act, medical imagingexams and procedure reports are released immediately into your electronicmedical record. You may view this report before your referring provider.If you have questions, please contact your health care provider. INDICATION: Tube placement COMPARISON: None TECHNIQUE: 1 view abdomen, supine. FINDINGS: Devices: Enteric tube distal tip is in the central lower abdomen, withinthe distended stomach. Mild stool. No dilated bowel. No unusual mass effect. Endotracheal tube and right IJ central line partially seen. There are somepatchy peribronchovascular opacities in the left lower lobe. IMPRESSION: The enteric tube is in good position. The stomach appears to be at leastmoderately distended. Dictated by Radha Meraz MD @ Aug 16 2024 6:43AM (Electronically Signed) [email or web address] Mateus Wei MD GENERAL IMAGING Final Res ult * BLOOD CULTURE (08/15/2024 9:13 PM CDT) Only the most recent of3 resultswithin the time period is included. CULTURE No Growth. 08/20/2024 10:07 PM CDT [facility] Blood BLOOD SPECIMEN / Unknown Diversion Device / Unknown 08/15/2024 9:13 PM CDT 08/15/2024 9:25 PM CDT Narrative [facility] - 08/20/2024 10:07 PM CDT Low volume blood culture received; possible false negative culture. Martina Mcrae MD MICROBIOLOGY Final R esult [facility] [address] [place] [address], * SCAN-CARDIAC STRIP (08/15/2024 6:26 PM CDT) us Scanner OTHER Final Result * CT CARDIAC MORPHOLOGY W CV DUAL READ (08/15/2024 2:55 PM CDT) Anatomical Region Laterality Modality HEART Computed Tomogra phy Impressions 08/15/2024 5:07 PM CDT See separate radiology report for non-cardiac findings. Abnormal left ventricular anterior mitral leaflet connecting with the VSD repair. This appears to be infectious based on clinical appearance and motion. No clear abscess cavity identified in the aortomitral curtain. This appears most consistent with previous postsurgical changes. Normal functioning aortic valve with mild sclerosis. Grossly normal LV and RV systolic function. Please see separate radiology report for review of noncardiovascular structures. Images reviewed and discussed with Dr. Lonnie Snow. FINDINGS: LV/RV size and function are normal. The anterior mitral leaflet is abnormal. There is thickening of the left ventricular side of the leaflet. There is connection of this tissue to the VSD patch. It is contiguous. It has independent motion with the cardiac cycle. This is likely infectious based on its thickening, Hounsfield units, and connection. The aortic valve is mildly sclerotic, which opens well and does not have active endocarditis or vegetation. No active abscess cavity noted on any portion of the scan. The VSD repair is intact with the exception of the connection of possible infectious tissue from the left ventricular side of the anterior mitral leaflet. MD JADE Keith/zak Narrative 08/15/2024 5:07 PM CDT Results are automatically released to your [employer] account once available, in compliance with federal regulations. This means that you may see your results before your provider has had a chance to review them. Please allow 2-3 business days for your provider to comment on the results. THIS IS THE CARDIOLOGY REPORT OF A DUAL READ STUDY. READ THE SEPARATE RADIOLOGY REPORT FOR POTENTIAL INCIDENTAL FINDINGS. REPORTS MAY BE FINALIZED AT DIFFERENT TIMES. STUDY: CT CARDIAC MORPHOLOGY, 08/15/2024 STUDY PARAMETERS: Contrast used: 70 cc Omnipaque 350; no premedications given; scan protocol is spiral and FLASH; total DLP 471; Siemens SOMATOM Force [address] INDICATIONS: Endocarditis,congenital heart disease. PERIPHERAL RISK FACTORS: Diabetes: No. SCAN QUALITY: Good. us Brian CARLTON CT Final R esult * CT CARDIAC MORPHOLOGY W RAD DUAL READ (08/15/2024 2:55 PM CDT) Anatomical Region Laterality Modality HEART Computed Tomogra phy 08/16/2024 12:5 9 AM CDT Impressions 08/16/2024 12:59 AM CDT : 1. Please see separate cardiology report for cardiac findings. 2. Small left pleural effusion with consolidation in the left lower lobe. This may be due to atelectasis or pneumonia. 3. Diffuse ground-glass opacification of the lungs with superimposed patchy ground-glass opacities, likely due to edema. Please note that all CT scans at this facility use dose modulation, iterative reconstruction, and/or weight-based dosing when appropriate to reduce radiation dose to as low as reasonably achievable. Dictated by Tayler Dominguez MD @ 08/16/2024 12:59:23 AM (Electronically Signed) Narrative 08/16/2024 12:59 AM CDT For Patients: As a result of the Cures Act, medical imaging exams and procedure reports are released immediately into your electronic medical record. You may view this report before your referring provider. If you have questions, please contact your health care provider. THIS IS THE RADIOLOGY OVER READ REPORT OF A DUAL READ STUDY. READ THE SEPARATE CARDIOLOGY REPORT FOR CARDIOVASCULAR FINDINGS. REPORTS MAY BE FINALIZED AT DIFFERENT TIMES. : COMPARISON: : Chest radiograph 08/15/2024. TECHNIQUE: : Please see cardiology report for technical information. This exam is being performed in conjunction with the services provided by the [facility] ([facility]). INDICATION: Cardiac over-read. Congenital heart disease, known or suspected. Endocarditis, clinical status change. FINDINGS: Visualized mediastinum: No large central pulmonary embolism. No pathologically enlarged lymph nodes. No pericardial effusion. Visualized lungs and pleural spaces: There is diffuse ground-glass opacification of the lungs, with superimposed patchy ground-glass opacities. Right basilar dependent atelectasis. Consolidation in the left lower lobe with air bronchograms. Small left pleural effusion. Visualized upper abdomen: Unremarkable. Visualized musculoskeletal structures: Sternotomy. Procedure Note Tayler Dominguez MD - 08/16/2024 For Patients: As a result of the Cures Act, medical imagingexams and procedure reports are released immediately into your electronicmedical record. You may view this report before your referring provider.If you have questions, please contact your health care provider. THIS IS THE RADIOLOGY OVER READ REPORT OF A DUAL READ STUDY. READ THESEPARATE CARDIOLOGY REPORT FOR CARDIOVASCULAR FINDINGS. REPORTS MAY BEFINALIZED AT DIFFERENT TIMES. : COMPARISON: : Chest radiograph 08/15/2024. TECHNIQUE: : Please see cardiology report for technical information. This exam is beingperformed in conjunction with the services provided by the [facility] ([facility]). INDICATION: Cardiac over-read. Congenital heart disease, known or suspected.Endocarditis, clinical status change. FINDINGS: Visualized mediastinum: No large central pulmonary embolism. Nopathologically enlarged lymph nodes. No pericardial effusion. Visualized lungs and pleural spaces: There is diffuse ground-glassopacification of the lungs, with superimposed patchy ground-glassopacities. Right basilar dependent atelectasis. Consolidation in the leftlower lobe with air bronchograms. Small left pleural effusion. Visualized upper abdomen: Unremarkable. Visualized musculoskeletal structures: Sternotomy. IMPRESSION: : 1. Please see separate cardiology report for cardiac findings. 2. Small left pleural effusion with consolidation in the left lower lobe.This may be due to atelectasis or pneumonia. 3. Diffuse ground-glass opacification of the lungs with superimposedpatchy ground-glass opacities, likely due to edema. Please note that all CT scans at this facility use dose modulation,iterative reconstruction, and/or weight-based dosing when appropriate toreduce radiation dose to as low as reasonably achievable. Dictated by Tayler Dominguez MD @ 08/16/2024 12:59:23 AM (Electronically Signed) Brian CARLTON CT Final R esult * SCAN-CARDIAC STRIP (08/14/2024 9:30 PM CDT) us Scanner OTHER Final Result * (ABNORMAL) RESPIRATORY PANEL MULTIPLEX PCR (08/14/2024 6:43 PM CDT) Only the most recent of2 resultswithin the time period is included. Adenovirus NOT Detected 08/14/2024 8:34 PM CDT [facility] Coronavirus 229E NOT Detected 08/14/2024 8:34 PM CDT [facility] Coronavirus HKU1 NOT Detected 08/14/2024 8:34 PM CDT [facility] Coronavirus NL63 NOT Detected 08/14/2024 8:34 PM CDT [facility] Coronavirus OC43 NOT Detected 08/14/2024 8:34 PM CDT [facility] Human Metapneumovirus NOT Detected 08/14/2024 8:34 PM CDT [facility] Human Rhinovirus/Enterovi dayami NOT Detected 08/14/2024 8:34 PM CDT [facility] Influenza A NOT Detected 08/14/2024 8:34 PM CDT [facility] Influenza B NOT Detected 08/14/2024 8:34 PM CDT [facility] Parainfluenza Virus 1 NOT Detected 08/14/2024 8:34 PM CDT [facility] Parainfluenza Virus 2 NOT Detected 08/14/2024 8:34 PM CDT [facility] Parainfluenza Virus 3 NOT Detected 08/14/2024 8:34 PM CDT [facility] Parainfluenza Virus 4 NOT Detected 08/14/2024 8:34 PM CDT [facility] Respiratory Syncytial Virus NOT Detected 08/14/2024 8:34 PM CDT [facility] SARS-Cov-2 NOT Detected 08/14/2024 8:34 PM CDT [facility] Bordetella pertussis NOT Detected 08/14/2024 8:34 PM CDT [facility] Bordetella Parapertussis NOT Detected 08/14/2024 8:34 PM CDT [facility] Chlamydophila pneumoniae NOT Detected 08/14/2024 8:34 PM CDT [facility] Mycoplasma pneumoniae Detected(A) 08/14/2024 8:34 PM CDT [facility] Nasopharyngeal NASOPHARYNGEAL SWAB / Unknown Non-Blood / Unknown 08/14/2024 6:43 PM CDT 08/14/2024 6:53 PM CDT Narrative [facility] - 08/14/2024 8:34 PM CDT All PCR tests are subject to false negative results due to variability in viral/bacterial load and collection technique. This test does NOT detect MERS ( Respiratory Syndrome) or SARS-1 (Severe Acute Respiratory Syndrome). Elenita Cobb MD MICROBIOLOGY Fin al Result Performing Organization Address City/[facility]/ZIP Co de Phone Number [facility] [address] [place] [address], [place] * LACTATE ARTERIAL (08/14/2024 4:11 PM CDT) LACTATE,ARTERI AL 1.4 0.5 - 1.6 mmol/L 08/14/2024 4:59 PM CDT [facility] Blood BLOOD SPECIMEN / Unknown Non-Lab Venipuncture / Unknown 08/14/2024 4:11 PM CDT 08/14/2024 4:30 PM CDT Elenita Cobb MD CHEMISTRY Fin al Result Performing Organization Address City/[facility] Co de Phone Number [facility] [address] [place] [address], [place] * (ABNORMAL) SPUTUM CULTURE, STAIN (08/14/2024 4:11 PM CDT) Only the most recent of2 resultswithin the time period is included. CULTURE RESULT(A) 08/16/2024 12:00 PM CDT [facility] CULTURE 1+ Jodie albicans 08/16/2024 12:00 PM CDT [facility] GRAM STAIN No PMNs 08/16/2024 12:00 PM CDT [facility] GRAM STAIN No RBCs 08/16/2024 12:00 PM CDT [facility] GRAM STAIN No Epithelial cells 08/16/2024 12:00 PM CDT [facility] GRAM STAIN No organisms seen 08/16/2024 12:00 PM CDT [facility] Sputum SPUTUM SPECIMEN / Unknown Non-Blood / Unknown 08/14/2024 4:11 PM CDT 08/14/2024 4:31 PM CDT Elenita Dumont MD MICROBIOLOGY Final Result [facility] [address] [place] [address], * INTUBATION (08/14/2024 2:29 PM CDT) Narrative Elenita Cobb MD - 08/14/2024 2:29 PM CDT Elenita Cobb MD 08/14/2024 2:32 PM INTUBATION Date/Time: 08/14/2024 2:29 PM Performed by: Elenita Cobb MD Authorized by: Elenita Cobb MD Indication/Diagnosis: Hypoxemic respiratory failure ICU Airway Protocol used: Yes Pre-Procedure Assessment Mallampati Class: Unable to assess Mouth Opening: Full} Thyromental Distance: Short Neck ROM: Full Teeth: Edentulous Technique: Delayed sequence intubation Oxygenation Strategy: NIPPV and nasal cannula during intubation Medications: Ketamine (mg) Neuromuscular Blockers: Succinylcholine (mg) Ventilation attempted between induction and intubation?: Yes Mask Ventilation: Easy Laryngoscopy via: Glidescope LoPro Blade Size: 3 Laryngoscopy Attempts: 1 Cormack-Lehane Grade View: 1 ETT Type: Oral ETT with subglottic suction ETT Tube Size: 6.5. ETT Tube Size: 6.5. Secured At (cm): 22 Measured From: Lips Airway Adjuncts: None Post-Procedure Assessment Airway Confirmation via: CO2 detection and fiber optic bronchoscopy Procedure Noteable for: Uneventful Placement Verification: end tidal CO2 and fiber optic visualization Difficulty: 0 (not difficult) Elenita Cobb MD RESPIRATORY CARE OR D Final Result * CENTRAL LINE (08/14/2024 2:29 PM CDT) Narrative Elenita Cobb MD - 08/14/2024 2:29 PM CDT Elenita Cobb MD 08/14/2024 2:32 PM CENTRAL LINE Date/Time: 08/14/2024 2:29 PM Performed by: Elenita Cobb MD Authorized by: Elenita Cobb MD Consent: Consent obtained: Verbal Consent given by: Parent Risks, benefits, and alternatives were discussed: yes Oldham protocol: Patient identity confirmed: Arm band Pre-procedure details: Indication(s): central venous access Hand hygiene: Hand hygiene performed prior to insertion Sterile barrier technique: All elements of maximal sterile technique followed Skin preparation: Chlorhexidine Skin preparation agent: Skin preparation agent completely dried prior to procedure Anesthesia: Anesthesia method: Local infiltration Local anesthetic: Lidocaine 1% w/o epi Procedure details: Location: R internal jugular Patient position: Trendelenburg Procedural supplies: Cordis (double lumen cath with sterile sheath placed through cordis) Landmarks identified: yes Ultrasound guidance: yes Ultrasound guidance timing: prior to insertion and real time Sterile ultrasound techniques: Sterile gel and sterile probe covers were used Number of attempts: 1 Successful placement: yes Post-procedure details: Post-procedure: Dressing applied Assessment: Blood return through all ports Procedure completion: Tolerated us Elenita Cobb MD IV ORD Fin al Result * ARTERIAL LINE (08/14/2024 2:29 PM CDT) Narrative Elenita Cobb MD - 08/14/2024 2:29 PM CDT Elenita Cobb MD 08/14/2024 2:32 PM ARTERIAL LINE Date/Time: 08/14/2024 2:29 PM Performed by: Elenita Cobb MD Authorized by: Elenita Cobb MD Consent: Consent obtained: Verbal Consent given by: Parent Oldham protocol: Patient identity confirmed: Arm band Indications: Indications: multiple ABGs Pre-procedure details: Skin preparation: Chlorhexidine Preparation: Patient was prepped and draped in sterile fashion Procedure details: Location: L radial Valerio's test performed: yes Valerio's test abnormal: no Needle gauge: 20 G Number of attempts: 2 Transducer: waveform confirmed Post-procedure details: Post-procedure: Biopatch applied CMS: Normal Procedure completion: Tolerated us Elenita Cobb MD IV ORD Fin al Result * (ABNORMAL) COMPREHENSIVE BLOOD GAS ARTERIAL (08/14/2024 1:01 PM CDT) Only the most recent of3 resultswithin the time period is included. PH, ARTERIAL 7.55(H) 7.35 - 7.45 08/14/2024 1:01 PM CDT [facility] PCO2, ARTERIAL 40 32 - 45 mmHg 08/14/2024 1:01 PM CDT [facility] PO2, ARTERIAL 260(H) 83 - 108 mmHg 08/14/2024 1:01 PM CDT [facility] HCO3, ARTERIAL 35(H) 21 - 28 mmol/L 08/14/2024 1:01 PM CDT [facility] BASE EXCESS, ARTERIAL 11.6(H) -2.0 - 3.0 08/14/2024 1:01 PM CDT [facility] O2 SATURATION, ARTERIAL 99(H) 94 - 98 % 08/14/2024 1:01 PM CDT [facility] PATIENT TEMPERATURE 37.0 Degrees C 08/14/2024 1:01 PM CDT [facility] Blood BLOOD SPECIMEN / Unknown 08/14/2024 1:01 PM CDT 08/14/2024 1:01 PM CDT Mickey Oseguera MD CHEMISTRY Naomy l Result [facility] [address] [place] [address], * PNEUMOCYSTIS JIROVECI PCR (08/14/2024 12:54 PM CDT) P.JIRO SPECIMEN SOURCE SEE COMMENTS 08/16/2024 3:48 PM CDT [facility] opendorse Comment:RESULT: right middle Other, Bronchoalveolar Lavage P.JIRO RESULT Negative Not Applicable 08/16/2024 3:48 PM CDT [facility] opendorse Comment: This test was developed and its performance characteristics determined by [facility] in a manner consistent with CLIA requirements. This test has not been cleared or approved by the U.S. Food and Drug Administration. Test Performed by: [facility] [address] [place] [address] [employer] Operator: Shaista Hardy Ph.D.; CLIA# [id number] Other BRONCHOALVEOLAR LAVA GE FLUID SPECIMEN / Unknown Non-Blood / Unknown 08/14/2024 12:54 PM CDT 08/14/2024 1:07 PM CDT us Elenita Cobb MD SEND OUTS Fin al Result [place] [address] [place] [address], * LEGIONELLA CULT [id number] (08/14/2024 12:54 PM CDT) Legion Spec 1 Comment 08/24/2024 1:[address] [facility] ([facility]) Comment: Culture Report: No Legionella species isolated. Other BRONCHOALVEOLAR LAVA GE FLUID SPECIMEN / Unknown Non-Blood / Unknown 08/14/2024 12:54 PM CDT 08/14/2024 1:07 PM CDT Narrative [facility] ([facility]) - 08/24/2024 1:08 PM CDT Performed at: [address] [place] [address] [employer] [address] [place] [id number] [employer] Operator: Danny Rivers MD, Phone: [phone] us Elenita Cobb MD SEND OUTS Fin al Result [facility] ([facility]) [address] [place] [address], * LEGIONELLA SPECIES CULTURE (NON BLOOD) (08/14/2024 12:54 PM CDT) Legion Cult Status Final report 08/24/2024 1:08 PM CDT [facility] ([facility]) Other BRONCHOALVEOLAR LAVA GE FLUID SPECIMEN / Unknown Non-Blood / Unknown 08/14/2024 12:54 PM CDT 08/14/2024 1:07 PM CDT Narrative [facility] ([facility]) - 08/24/2024 1:08 PM CDT Performed at: - [facility] [address] [id number] [employer] Operator: Danny Rivers MD, Phone: [phone] us Elenita Cobb MD SEND OUTS Fin al Result [facility] ([facility]) [address] [place] [address], [place] * Bronch Quant Culture Stain (08/14/2024 12:54 PM CDT) CULTURE No growth (<100 CFU/mL) 08/16/2024 10:08 AM CDT [facility] GRAM STAIN 1+ PMNs 08/16/2024 10:08 AM CDT [facility] GRAM STAIN No RBCs 08/16/2024 10:08 AM CDT [facility] GRAM STAIN 1+ Epithelial cells 08/16/2024 10:08 AM CDT [facility] GRAM STAIN No organisms seen 08/16/2024 10:08 AM CDT [facility] Other BRONCHOALVEOLAR LAVA GE FLUID SPECIMEN / Unknown Non-Blood / Unknown 08/14/2024 12:54 PM CDT 08/14/2024 1:08 PM CDT us Elenita Cobb MD MICROBIOLOGY Fin al Result [facility] [address] [place] [address], [place] * AFB Smear/Culture (08/14/2024 12:54 PM CDT) CULTURE No Mycobacterium isolated. 09/26/2024 7:04 AM CDT [facility] ACID FAST STAIN No acid fast bacilli seen 09/26/2024 7:04 AM CDT [facility] Other BRONCHOALVEOLAR LAVA GE FLUID SPECIMEN / Unknown Non-Blood / Unknown 08/14/2024 12:54 PM CDT 08/14/2024 1:08 PM CDT us Elenita Cobb MD MICROBIOLOGY Fin al Result [facility] [address] [place] [address], * PATH Non [employer]ER Cytology - Malignant Cells and/or Fungus Stain (Brushing, Washing, BAL, [place]) (08/14/2024 12:54 PM CDT) Case Report Medical Cytology Report Case: [id number] Authorizing Provider: Elenita Cobb Collected: 08/14/2024 1254 MD Divya Ordering Location: [facility] Received: 08/14/2024 1311 [facility] Pathologist: Ibrahima Augustine MD Specimen: Right Middle Lobe Lung Bronchoalveolar Lavage 08/15/2024 2:33 PM CDT [facility] Final Diagnosis A) LUNG, RIGHT MIDDLE LOBE, BRONCHIAL CYTOLOGIC MATERIAL, BRONCHOALVEOLAR LAVAGE: 1. Negative for malignancy in this sample 2. Negative for viral inclusions 3. Silver stains negative for yeast, fungal hyphae, and Pneumocystis 08/15/2024 2:33 PM CDT [facility] at 1433 CDT Clinical Information Pulmonary edema. Basilar opacities. 08/15/2024 2:33 PM CDT [facility] Gross Description A) SOURCE: Bronchoalveolar Lavage, Right Middle Lobe lung The specimen consists of 5 cc of light colorless hazy fluid from which the following is prepared: -1 DiffQuik stained slide -1 ThinPrep slide for Papanicolaou Stain -1 GMS stained ThinPrep slide 08/15/2024 2:33 PM CDT [facility] Microscopic Description Specimen adequacy: Adequate for interpretation. All slides were reviewed. The microscopic appearance substantiates the diagnosis. 08/15/2024 2:33 PM CDT [facility] Additional Information Cytology is screened at [facility] - [address], [place] [address] and [facility] - [address], [place] [address] and [facility] - [address] [place] [address] Interpreted at [facility] - [address], [place] [address] 08/15/2024 2:33 PM CDT [facility] Other (Right Middle Lobe Lung Bronchoalveolar Lavage) Non-Blood / Unknown 08/14/2024 12:54 PM CDT 08/14/2024 1:11 PM CDT Comment:Choose site(s), Spec imen(s), and test. us Elenita Cobb MD PATHOLOGY/CYTOLOGY Final Result [facility] [address] [place] [address], * Bronchial Cell Count and Diff (08/14/2024 12:54 PM CDT) BODY FLUID SOURCE Bronchoalveolar Lavage 08/14/2024 3:17 PM CDT [facility] Comment:Right middle BAL COLOR Colorless 08/14/2024 3:17 PM CDT [facility] BAL CLARITY Clear 08/14/2024 3:17 PM CDT [facility] TOTAL NUCLEATED CELLS, BF 97 /cu mm 08/14/2024 3:17 PM CDT [facility] [facility] % NEUTROPHILS, BODY FLUID 36 % 08/14/2024 3:17 PM CDT [facility] % LYMPHOCYTES, BODY FLUID 10 % 08/14/2024 3:17 PM CDT [facility] % MONO/MACRO, BAL 53 % 08/14/2024 3:17 PM CDT [facility] % EOSINOPHILS, BODY FLUID 1 % 08/14/2024 3:17 PM CDT [facility] BRONCH EPITHELIAL Moderate 08/14/2024 3:17 PM CDT [facility] Other BRONCHOALVEOLAR LAVA GE FLUID SPECIMEN / Unknown Non-Blood / Unknown 08/14/2024 12:54 PM CDT 08/14/2024 1:08 PM CDT us Elenita Cobb MD BODY FLUID Fin al Result Performing Organization Address City/[facility]/ZIP Co de Phone Number [facility] [address] [address], [place] * SEAN Prep, Other Source (08/14/2024 12:54 PM CDT) OBSERVATION No fungal elements seen 08/14/2024 4:20 PM CDT [facility] Other BRONCHOALVEOLAR LAVA GE FLUID SPECIMEN / Unknown Non-Blood / Unknown 08/14/2024 12:54 PM CDT 08/14/2024 1:08 PM CDT us Elenita Cobb MD MICROBIOLOGY Fin al Result Performing Organization Address City/[facility]/ZIP Co de Phone Number [facility] [address] [address], [place] * Fungus Culture, Other Source (08/14/2024 12:54 PM CDT) CULTURE No Fungus isolated. 09/12/2024 7:02 AM CDT [facility] Other BRONCHOALVEOLAR LAVA GE FLUID SPECIMEN / Unknown Non-Blood / Unknown 08/14/2024 12:54 PM CDT 08/14/2024 1:08 PM CDT us Elenita Cobb MD MICROBIOLOGY Fin al Result [facility] [address] [place] [address], [place] * Q FEVER ANTIBODIES IGG (08/14/2024 6:31 AM CDT) [facility] Q Fever Phase I Negative Neg:<1:16 5 11:09 AM CDT [facility] ([facility]) Q Fever Phase II Negative Neg:<1:16 08/17/19 11:[address] [facility] ([facility]) Comment: Note: Four-fold increases between paired sera are recommended to demonstrate recent infection. Blood BLOOD SPECIMEN / Unknown Venipuncture / Unknown 08/14/2024 6:31 AM CDT 08/14/2024 6:41 AM CDT Narrative [facility] ([facility]) - 08/16/2024 11:09 AM CDT Performed at: [address] [place] [address] [id number] Mill Crane Operator: Cookie Castellano MD, Phone: [phone] Elenita Dumont MD SEND OUTS Final Result [facility] ([facility]) [address] [place] [address], * BRUCELLA ANTIBODY IGM EIA (08/14/2024 6:31 AM CDT) [facility] Brucella IgM Ab Negative Negative 4:[address] [facility] ([facility]ET) Comment: This assay detects antibodies to Brucella abortus, melitensis, and suis. Blood BLOOD SPECIMEN / Unknown Venipuncture / Unknown 08/14/2024 6:31 AM CDT 08/14/2024 6:41 AM CDT Narrative [facility] ([facility]) - 08/20/2024 4:08 PM CDT Performed at: [address] [place] [id number] Mill Crane Operator: Cookie Castellano MD, Phone: [phone] us Elenita Dumont MD SEND OUTS Final Result Performing Organization Address [facility]/ZIP Co de Phone Number [facility] ([facility]) [address] [place] [address] * BRUCELLA ANTIBODY IGG EIA (08/14/2024 6:31 AM CDT) [facility] Brucella IgG Ab Negative Negative 4:[address] [facility] ([facility]) Comment: This assay detects antibodies to Brucella abortus, melitensis, and suis. Blood BLOOD SPECIMEN / Unknown Venipuncture / Unknown 08/14/2024 6:31 AM CDT 08/14/2024 6:41 AM CDT Narrative [facility] ([facility]) - 08/20/2024 4:08 PM CDT Performed at: [address] [place] [address] [id number] Mill Crane Operator: Cookie Castellano MD, Phone: [phone] us Elenita Dumont MD SEND OUTS Final Result Performing Organization Address [facility] de Phone Number [facility] ([facility]) [address] [place] [address], * SCAN-CARDIAC STRIP (08/13/2024 10:35 PM CDT) us Scanner OTHER Final Result * LEGIONELLA AND PNEUMOCOCCAL URINE ANTIGEN (08/13/2024 9:42 PM CDT) [facility] STREP PNEUMO ANTIGEN Negative 08/13/2024 10:26 PM CDT [facility] Comment:Presumptive negative for pneumococcal pneumonia, suggesting no current or recent pneumococcal infection. Infection due to S. pneumoniae cannot be ruled out since the antigen present in the sample may be below the detection limit of the test. LEGIONELLA ANTIGEN Negative 08/13/2024 10:26 PM CDT [facility] Comment:Negative for L.pneum ophila serogroup 1 antigen, suggesting no recent or current infection. Infection due to Legionella cannot be ruled out since other serogroups and species may cause disease, antigen may not be present in urine in early infection, and the level of antigen present may be below the detection limit of the test. Low test sensitivity in patients with mild pneumonia. Urine URINE SPECIMEN / Unknown Non-Blood / Unknown 08/13/2024 9:42 PM CDT 08/13/2024 9:53 PM CDT us Elenita Dumont MD MICROBIOLOGY Final Result Performing Organization Address City/[facility]/ZIP Co de Phone Number [facility] [address] [place] [address], * (ABNORMAL) MRSA/SA PCR (08/13/2024 2:14 PM CDT) Pathologist [facility] MRSA DNA PCR Negative Negative 08/13/2024 4:25 PM CDT [facility] STAPHYLOCOCCUS AUREUS PCR Positive(A) Negative 08/13/2024 4:25 PM CDT [facility] Other SPECIMEN FROM INTERNAL NOSE / Unknown Non-Blood / Unknown 08/13/2024 2:14 PM CDT 08/13/2024 2:32 PM CDT Narrative [facility] - 08/13/2024 4:25 PM CDT S. aureus detected; NOT MRSA. Test result does not preclude MRSA nasal colonization. False negative for MRSA could be obtained if MRSA present in the sample is below threshold of detection. us Elenita Dumont MD MICROBIOLOGY Final Result Performing Organization Address [facility]/ZIP Co de Phone Number [facility] [address] [place] [address], * SCAN-CARDIAC STRIP (08/13/2024 7:27 AM CDT) us Scanner OTHER Final Result * (ABNORMAL) SEDIMENTATION RATE (08/13/2024 5:46 AM CDT) SEDIMENTATION RATE 120(H) <20 mm/hr 2024 6:22 AM CDT [facility] Blood BLOOD SPECIMEN / Unknown Non-Lab Venipuncture / Unknown 08/13/2024 5:46 AM CDT 08/13/2024 6:08 AM CDT us Mickey Oseguera MD HEMATOLOGY Naomy l Result [facility] [address] [place] [address], [place] * SCAN-CARDIAC STRIP (08/12/2024 8:35 PM CDT) [...] OTHER Final Result * SCAN-CARDIAC STRIP (08/11/2024 7:15 PM CDT) us Scanner OTHER Final Result * ECHO TTE COMPLETE W CONTRAST (08/11/2024 5:56 PM CDT) AORTIC VALVE MEAN PG 6 mmHg EJECTION [...] Tech: AL Referring MD: TRANG GUEVARA Site: [facility] Reading Location: [facility] IP Patient Location: Inpatient. [...] . This study was interpreted by an [facility] [facility] accredited facility. Final Procedure Note Nicola Hankins MD - 08/11/2024 ECHOCARDIOGRAM DOMINIQUE FRAGA : 1980 43 years Study Date: 08/11/2024 3:00:05 PM Gender: F BP: 87/55 mmHg Height: 136.00 cm BSA: 1.45 m Weight: 61.00 kg Tech: JASON Bishop MD: TRANG GUEVARA Site: [facility] Reading Location: [facility] Patient Location: Inpatient. Procedure: 2D w/ [...] . This study was interpreted by an [facility] [facility] accredited facility. Final us Trang Guevara MD ECHO ORD Final Res ult * SCAN-CARDIAC STRIP (08/11/2024 3:48 PM CDT) us Scanner OTHER Final Result * SCAN-CARDIAC STRIP (08/11/2024 7:23 AM CDT) us Scanner OTHER Final Result * SCAN-CARDIAC STRIP (08/11/2024 12:49 AM CDT) us Scanner OTHER Final Result * SCAN-CARDIAC STRIP (08/10/2024 3:34 PM CDT) us Scanner OTHER Final Result * (ABNORMAL) BLOOD GAS,VENOUS (08/10/2024 3:32 PM CDT) PH, VENOUS 7.43 7.32 - 7.43 08/10/2024 3:44 PM CDT [facility] PCO2, VENOUS 44 41 - 51 mmHg 08/10/2024 3:44 PM CDT [facility] PO2, VENOUS 49(H) 35 - 40 mmHg 08/10/2024 3:44 PM CDT [facility] HCO3,VENOUS 29 22 - 29 mmol/L 08/10/2024 3:44 PM CDT [facility] BASE EXCESS, VENOUS, POCT 4.2(H) -2.0 - 3.0 08/10/2024 3:44 PM CDT [facility] O2 SATURATION, VENOUS 82(H) 70 - 75 % 08/10/2024 3:44 PM CDT [facility] PATIENT TEMPERATURE 37.0 Degrees C 08/10/2024 3:44 PM CDT [facility] Blood VENOUS BLOOD SPECIMEN / Unknown Butterfly / Unknown 08/10/2024 3:32 PM CDT 08/10/2024 3:38 PM CDT us Lois Nuñez MD CHEMISTRY Final Resul t [facility] [address] [place] [address], [place] * (ABNORMAL) PRO-BNP (08/10/2024 3:32 PM CDT) [facility] PRO-BNP 3,263(H) <125 pg/mL 08/10/2024 4:21 PM CDT [facility] Blood BLOOD SPECIMEN / Unknown Butterfly / Unknown 08/10/2024 3:32 PM CDT 08/10/2024 3:38 PM CDT Narrative [facility] - 08/10/2024 4:21 PM CDT The [...] Nuñez MD SEND OUTS Final Resul t [facility] [address] [place] [address], [place] * (ABNORMAL) COMP METABOLIC PANEL (08/10/2024 3:32 PM CDT) SODIUM 134(L) 136 - 145 mmol/L 08/10/2024 4:18 PM CDT [facility] POTASSIUM 3.3(L) 3.5 - 5.1 mmol/L 08/10/2024 4:18 PM CDT [facility] CHLORIDE 95(L) 98 - 107 mmol/L 08/10/2024 4:18 PM CDT [facility] CO2,TOTAL 25 22 - 29 mmol/L 08/10/2024 4:18 PM CDT [facility] ANION GAP 14 5 - 18 08/10/2024 4:18 PM CDT [facility] GLUCOSE 92 70 - 99 mg/dL 08/10/2024 4:18 PM CDT [facility] CALCIUM 8.2(L) 8.8 - 10.4 mg/dL 08/10/2024 4:18 PM CDT [facility] Comment: Reference ranges for this test were updated on 12/19/2023 to reflect our healthy population more accurately. Reference range changes are not retroactively applied to results, but previous results using the same methodology can be interpreted in the context of the new reference range. BUN 20 6 - 20 mg/dL 08/10/2024 4:18 PM CDT [facility] CREATININE 1.09(H) 0.50 - 0.90 mg/dL 08/10/2024 4:18 PM CDT [facility] BUN/CREAT RATIO 18 10 - 20 4:18 PM CDT [facility] eGFR 65(L) >90 mL/min/1. 73m2 08/10/2024 4:18 PM CDT [facility] Comment:As of 2021, eG FR is calculated by the CKD-EPI creatinine equation without race adjustment. eGFR can be influenced by muscle mass, exercise, and diet. The reported eGFR is an estimation only and is only applicable if the renal function is stable. ALBUMIN 3.4(L) 4.0 - 4.9 g/dL 08/10/2024 4:18 PM CDT [facility] PROTEIN,TOTAL 7.7 6.0 - 8.0 g/dL 08/10/2024 4:18 PM CDT [facility] BILIRUBIN,TOTAL 0.2 0.0 - 1.2 mg/dL 08/10/2024 4:18 PM CDT [facility] ALK PHOSPHATASE 149(H) 35 - 104 IU/L 08/10/2024 4:18 PM CDT [facility] ALT (SGPT) 54(H) 10 - 35 IU/L 08/10/2024 4:18 PM CDT [facility] AST (SGOT) 47(H) 10 - 35 IU/L 08/10/2024 4:18 PM CDT [facility] Blood BLOOD SPECIMEN / Unknown Butterfly / Unknown 08/10/2024 3:32 PM CDT 08/10/2024 3:38 PM CDT us Lois Nuñez MD CHEMISTRY Final Resul t [facility] [address] [place] [address], * SCAN-CT INTERPRETATION (08/10/2024 12:00 AM CDT) Anatomical Region Laterality Modality Other us Scanner OTHER Final Result * LC HIV-1/O/2, 4TH GENERATION (07/25/2022 12:19 PM CDT) HIV Scr 4th Gen Non Reactive Non Reactive 07/28/2022 11:[address] [facility] ([facility]) Comment: HIV Negative HIV-1/HIV-2 antibodies and HIV-1 p24 antigen were NOT detected. There is no laboratory evidence of HIV infection. Blood BLOOD SPECIMEN / Unknown Butterfly / Unknown 07/25/2022 12:19 PM CDT 07/25/2022 12:20 PM CDT Narrative [facility] ([facility]) - 07/28/2022 11:09 AM CDT Performed at: [address] [place] [id number] Mill Crane Operator: Danny Rivers MD, Phone: [phone] us Joe Dailey MD LABORATORY Final Result [facility] ([facility]) [facility] [place] [address], * ANTI HCV (07/21/2021 4:35 PM CDT) [facility] HEPATITIS C ANTIBODY Non-React lore Non-React lore 07/22/2021 5:38 PM CDT [facility] Comment:Antibodies to HCV no t detected; does not exclude the possibility of exposure to HCV. Blood BLOOD SPECIMEN / Unknown Venipuncture / Unknown 07/21/2021 4:35 PM CDT 07/21/2021 4:36 PM CDT us Joe Dailey MD SEND OUTS Final Result [facility] [address] [place] [address], [place] from Last 3 Months or Most Recently Relevant to Health Maintenance Insurance MEDICARE [place] ONLY MEDICARE PART B HB ONLY [employer] ACCESSABILITY SOLUTION MEDICARE PART A HB ONLY [employer] ACCESSABILITY SOLUTION MEDICARE PPS [facility] [employer] INS MEDICARE PB ONLY Advance Directives * Full Code (Latest Code Status on File) Date Activated Date Inactivated Comments 09/24/2024 10:06 AM 09/24/2024 9:18 PM Question Answer Comments Code Status Discussion: Reviewed Preferences * Full Code Date Activated Date Inactivated Comments 09/01/2024 10:04 AM 09/24/2024 9:37 AM * Full Code Date Activated Date Inactivated Comments 08/10/2024 3:08 PM 08/30/2024 4:30 PM Question Answer Comments Code Status Discussion: Reviewed Preferences 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
--- NOTE | 2024-11-07 00:18 | CRLHL7_ITS ---
For Patients: As a result of the Century Cures Act, medical imaging exams and procedure reports are released immediately into your electronic medical record. You may view this report before your referring provider. If you have questions, please contact your health care provider. INDICATION: Dyspnea, cough TECHNIQUE: Chest radiograph 1 view COMPARISON: 08/09/2024 FINDINGS: The sensitivity and specificity of the exam are moderately limited by the patient`s body habitus. Mediastinum: The central pulmonary arteries are near the upper limits of normal in size. The cardiac silhouette is mildly enlarged but may be accentuated by the portable technique. The patient is status post median sternotomy. Lung: Both lungs are unremarkable in appearance. No sign of pleural effusion seen. No pneumothorax is identified. Bone and Soft tissue: Unremarkable for age. IMPRESSION: 1. The cardiac silhouette is mildly enlarged but may be accentuated by the portable technique. Dictated by Kevan Lay MD @ 11/07/2024 1:00:36 AM Dictated by: Kevan Lay MD @ 11/07/2024 01:00:39 (Electronically Signed)
[2024-11-07 00:46] LABS: HCO3 VBG 24 mmol/L (21-28); PCO2 VBG 33 mmHG (40-50); PO2 VBG 85.6 mmHG (25-47); pH VBG 7.478 (7.32-7.43)
[2024-11-07 00:49] LABS: Hematocrit* 38.8 % (33.0-51.0); Hemoglobin* 12.3 gm/dL (12.0-16.0); Immature Granulocytes Abs Auto 0.03 K/uL (0.00-0.30); Immature Granulocytes Pct Auto 0.4 %; Lymphocytes Absolute Auto 2.54 K/uL (0.90-2.90); Mean Corpuscular HGB Conc 32 gm/dL (32-36); Mean Corpuscular Hemoglobin 30 pg (26-34); Mean Corpuscular Volume 96 fL (80-100); RDW Coefficient of Variation % 14.7 % (11.5-15.5); Red Blood Count* 4.04 m/uL (4.00-5.20); White Blood Count* 8.01 K/uL (4.50-11.00)
[2024-11-07 00:51] LABS: Slide Review Reflex No
[2024-11-07 00:56] LABS: Chloride* 105 mmol/L (96-114)
[2024-11-07 00:57] LABS: Troponin, Point-of-Care* 0.03 ng/ml (0.01-0.04)
[2024-11-07 00:57] LABS: Potassium* 3.9 mmol/L (3.6-5.1); Sodium* 138 mmol/L (135-149)
[2024-11-07 01:00] LABS: Anion Gap 8 mEq/L (7-15); Blood Urea Nitrogen* 27 mg/dL (5-24); Calcium* 8.9 mg/dL (8.4-10.6); Carbon Dioxide* 25 mmol/L (20-32); Creatinine* 1.0 mg/dL (0.5-1.5); Est. Creatinine Clearance* 69.91; Estimated Glomerular Filt Rate 71 ml/min; Glucose* 127 mg/dL (60-115)
[2024-11-07 01:02] LABS: PCR FLU A Negative PCR FLU A (Negative); PCR FLU B Negative PCR FLU B (Negative); PCR RSV Negative PCR RSV (Negative); SARS PCR* Negative SARS-CoV-2 (Negative)
--- OUTSIDE RECORDS SUMMARY | 2024-11-07 01:04 | XMS_ITS | CCD ---
Author Organization Unknown Care Team Providers Care Director Of Healthcare Systems Name Role Phone Sales Floor Manager, [place] Primary Care Provider Unava ilable Unavailable Chronic Care Management Unavaila ble Summary Purpose DataExchange Insurance Providers Payer name Policy type / Coverage type Covered libertarian ID Effective Begin Date Effective End Date Medicare [place] Medicare Part B [id number] Unknown Unknown [employer] ([facility]) Medicare Part B [id number] Unknown U nknown Family History Family History data not found Medication Administered No Medication Administered data Reason For Visit No Reason For Visit data
[2024-11-07 01:10] LABS: NT Pro B Type NatriureticPept* 1870 pg/mL (See Note)
[2024-11-07 01:12] LABS: D Dimer Quantitative* < 0.27 ug/ml (0.00-0.50)
--- NOTE | 2024-11-07 01:14 | CRLHL7_ITS ---
For Patients: As a result of the Century Cures Act, medical imaging exams and procedure reports are released immediately into your electronic medical record. You may view this report before your referring provider. If you have questions, please contact your health care provider. INDICATION: Dyspnea. Elevated BNP. TECHNIQUE: CT chest without contrast. COMPARISON: CTA chest 08/10/2024. FINDINGS: Lungs and pleura: Extensive bilateral ground-glass attenuation with mild superimposed interlobular septal thickening. No pleural effusion or pneumothorax. Patent central airways. Heart and vasculature: No cardiomegaly or pericardial effusion. Main pulmonary artery normal in caliber. No thoracic aortic aneurysm. Lymph nodes/mediastinum: Mildly prominent mediastinal lymph nodes, similar to prior exam. Chest wall: No suspicious chest wall mass or fluid collection. Upper abdomen: No acute abnormality. Bones: No acute abnormality. IMPRESSION: 1. Extensive bilateral ground-glass attenuation with mild superimposed interlobular septal thickening, findings which may be seen in the setting of pulmonary edema versus infectious/inflammatory process. Please note that all CT scans at this facility use dose modulation, iterative reconstruction, and/or weight-based dosing when appropriate to reduce radiation dose to as low as reasonably achievable. Dictated by Nic Vega MD @ 11/07/2024 1:42:56 AM (Electronically Signed)
--- OUTSIDE RECORDS SUMMARY | 2024-11-07 01:57 | XMS_ITS | CCD ---
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
--- OUTSIDE RECORDS SUMMARY | 2024-11-07 01:57 | XMS_ITS | CCD ---
Author Organization Unknown Care Team Providers Care Manager Business Process Name Role Phone Circulator, [place] Primary Care Provider Unava ilable Unavailable Chronic Care Management Unavaila ble Summary Purpose DataExchange Insurance Providers Payer name Policy type / Coverage type Covered republican ID Effective Begin Date Effective End Date Medicare [place] Medicare Part B [id number] Unknown Unknown [employer] ([facility]) Medicare Part B [id number] Unknown U nknown Family History Family History data not found Medication Administered No Medication Administered data Reason For Visit No Reason For Visit data
[2024-11-07] MEDS: FUROSEMIDE 10 MG/ML inj 80 MG IVP (02:00)
[2024-11-07 02:20] LABS: Procalcitonin* 0.07 ng/mL (<0.50)
[2024-11-07] MEDS: ALBUTEROL SULFATE 2.5 MG/3 ML VIAL.NEB NEB (02:24)
[2024-11-07 03:05] LABS: Troponin, Point-of-Care* 0.03 ng/ml (0.01-0.04)
--- NOTE | 2024-11-07 20:16 | ED.NURSE ---
Notified by lab of preliminary positive blood culture in anaerobic bottle. Faxed results to [employer] at [phone]. Called unit and updated as well. They will watch for the results.
--- NOTE | 2024-11-09 13:10 | ED.NURSE ---
medical technical writer received call from [place] internal [facility] resident Tg Guerrero about pt. blood culture results. culture results provided.
== END 2024-11-07 08:40 | disposition short-term general hospital (02) ==
PROVIDERS: Emergency Provider Family Medicine; PCP Family Medicine
DX: J96.01 Acute respiratory failure with hypoxia (principal); I34.0 Nonrheumatic mitral (valve) insufficiency; I36.1 Nonrheumatic tricuspid (valve) insufficiency; I50.811 Acute right heart failure
CPT/HCPCS: 36415; 71045; 71250; 80048; 82803; 83735; 83880; 84145; 84484; 85025; 85379; 87040; 87631; 93005; 94640; 94761; 96374; 99285; A9270; J1938

== ENCOUNTER 2024-11-07 08:17 | Outpatient (CLI) | payer MEDICARE, OTHER, SELFPAY | END 2024-11-07 08:18 | disposition home or self-care (01) | LOC: AMB 11-08 10:00 | PROVIDERS: PCP Family Medicine; Visit Provider Emergency Medicine Emergency Medical Services | DX: J96.01 Acute respiratory failure with hypoxia (principal); I34.0 Nonrheumatic mitral (valve) insufficiency | CPT/HCPCS: A0425; A0427 ==